=== PATIENT | female | born 1945 | race Caucasian/White ===

== ENCOUNTER 2020-11-03 13:52 | Outpatient (REF) | payer MEDICARE, SELFPAY ==
[2020-11-03 16:45] LABS: MANUAL DIFF FLAG NO
[2020-11-03 16:48] LABS: Basophils Percent Auto 0.3 % (0-2); Eosinophils Absolute Auto 0.4 X10*3/uL (0.0-0.4); Eosinophils Percent Auto 2.4 % (0-4); Imm Gran Abs Auto 0.18 X10*3/uL (0.00-0.03); Imm Gran Pct Auto 1.2 % (0.0-0.4); Lymphocytes Absolute Auto 2.9 X10*3/uL (1.2-4.9); Lymphocytes Percent Auto 20.4 % (20-40); Mean Corpuscular HGB Conc 28.4 g/dl (31.0-35.0); Mean Corpuscular Volume 91.8 fL (80-98); Mean Platelet Volume 10.2 fL (9.4-12.3); Monocytes Absolute Auto 1.3 X10*3/uL (0.1-1.2); Monocytes Percent Auto 8.7 % (2-11); Neutrophils Absolute Auto 9.7 X10*3/uL (2.0-8.3); Platelet Count 656 X10*3/uL (160-400); Red Blood Count 2.19 X10*6/uL (4.20-5.50); Red Cell Distribution Width 16.6 % (11.0-16.0); White Blood Count 14.4 X10*3/uL (4.8-10.8)
[2020-11-03 16:57] LABS: Hemoglobin 5.7 g/dl (12.0-16.0)
[2020-11-03 16:58] LABS: Hematocrit 20.1 % (37-47)
[2020-11-03 17:08] LABS: Alanine Aminotransferase 8 U/L (0-31); Albumin Level 3.1 g/dL (3.5-5.0); Alkaline Phosphatase 117 U/L (39-117); Anion Gap 13 (12-20); Aspartate Amino Transferase 12 U/L (5-31); Bilirubin Total 0.5 mg/dL (0.0-1.0); Blood Urea Nitrogen 11 mg/dL (9-16); Calcium 8.1 mg/dL (8.4-10.2); Carbon Dioxide 32 mmol/L (22-29); Chloride 99 mmol/L (96-108); Estimated Glomerular Filt Rate > 60; Glucose Random 112 mg/dL (60-115); Potassium 4.4 mmol/L (3.3-5.1); Sodium 140 mmol/L (135-145); Total Protein 6.3 g/dL (6.5-8.0)
[2020-11-03 17:12] LABS: B Type Natriuretic Peptide 46 pg/mL (<100)
[2020-11-03 17:30] LABS: Free T4 (Free Thyroxine) 0.99 ng/dL (0.71-1.85); Thyroid Stimulating Hormone 4.55 uIU/mL (0.32-4.0)
[2020-11-06 16:28] LABS: Vitamin B12 489 pg/mL (200-900)
== END 2020-11-03 13:53 | disposition home or self-care (01) ==
LOC: HO.HMGCLDS 13:52
PROVIDERS: PCP Internal Medicine; Visit Provider Internal Medicine
DX: R09.02 Hypoxemia (principal); I26.99 Other pulmonary embolism without acute cor pulmonale; R91.1 Solitary pulmonary nodule
CPT/HCPCS: 36415; 80053; 82607; 82746; 83880; 84439; 84443; 85025

== ENCOUNTER 2020-11-03 18:37 | Inpatient (IN) | payer MEDICARE, SELFPAY ==
[2020-11-03 18:43] VITALS: BP 162/67; PULSE 104; RESP 20; TEMP 37.9; O2SAT 98; BMI 33.3
[2020-11-03 20:00] VITALS: BP 133/57; PULSE 106; RESP 18; TEMP 37.4; O2SAT 98
--- NOTE | 2020-11-03 20:20 | ED_ITS ---
HPI - Weakness General Chief complaint: Weakness Stated complaint: weakness Time Seen by Provider: 11/03/20 20:19 Source: patient Mode of arrival: ambulatory Limitations: no limitations History of Present Illness HPI Narrative: Patient's history of COVID in late September discharged on 10/07 from [facility] had PE at that time is on Xarelto. After discharge patient has been feeling increasingly shortness of breath tiredness and weakness especially for last 1 week. No black stools no bleeding from any place had blood workup done today which showed hemoglobin of 5.7 PCP sent her here for blood transfusion and further workup. patient never had colonoscopy in the past denies any abdominal pain no chest pain Related Data Home Medications Medication Instructions Recorded Confirmed cholecalciferol (vitamin D3) 50 50 mcg PO DAILY 08/10/20 10/16/20 mcg (2,000 unit) capsule rivaroxaban 20 mg tablet 20 mg PO DAILY 10/16/20 10/16/20 Previous Rx's Medication Instructions Recorded amlodipine 5 mg tablet 5 mg PO DAILY #30 tab 09/25/20 oxygen #1 ea 10/16/20 furosemide 20 mg tablet 20 mg PO DAILY #30 tab 10/24/20 Allergies Allergy/AdvReac Type Severity Reaction Status Date / Time codeine [CODEINE] Allergy Intermediate TONGUE Verified 11/03/20 18:43 SWELLING Codeine Phosphate Allergy Unknown tongue Verified 11/03/20 18:43 swelling Review of Systems Constitutional: Constitutional: Reports fatigue, Reports malaise and Reports weakness Eyes: Eyes: Reports no additional eye complaints ENT: Reports system reviewed and no additional complaints, except as documented Cardiovascular: Cardiovascular: Reports no additional cardiovascular complaints and Reports dyspnea Respiratory: Respiratory: Reports dyspnea Gastrointestinal: Gastrointestinal: Denies melena, Denies hematochezia, Denies nausea and Denies vomiting Genitourinary: Genitourinary: Reports no additional female genitourinary complaints Musculoskeletal: Musculoskeletal: Reports no additional musculoskeletal complaints Neurologic: Reports system reviewed and no additional complaints, except as documented and Reports weakness Psychiatric: Psychiatric: Reports no additional psychiatric complaints Endocrine: Endocrine: Reports fatigue [facility] Past Medical History Medical History (Updated 11/03/20 @ 21:51 by Rocky Archibald MD) Cataract Hypercholesterolemia Hypertension Obesity (BMI 30-39.9) Peripheral vascular disease Trigger finger of right hand Surgical History (Updated 08/09/20 @ 10:28 by COTY Andres) History of cataract surgery Family History Family History (Updated 08/09/20 @ 10:29 by COTY Andres) Father Prostate cancer Diabetes Mother Pneumonia Social History Social History Advance Directives: No Advance Directives Information Provided: Yes Physical Exam Vital Signs: Vital Signs: Last Vital Signs Temp 98.8 F 11/03/20 23:18 Pulse 92 11/03/20 23:18 Resp 18 11/03/20 23:18 BP 133/47 L 11/03/20 23:18 Pulse Ox 97 11/03/20 22:49 Body Mass Index 33.3 Const: General: cooperative, well developed and ill appearing Nutritional Appearance: average body habitus Orientation/consciousness: patient oriented x3 HENMT: Head: Yes normocephalic and Yes atraumatic Ears: hearing grossly normal bilaterally Mouth: Normal oral and palatal mucosa present Throat: Yes posterior oropharynx normal Eyes: Conjunctivae: conjunctival abnormal (Pallor++) Sclerae: sclerae normal Pupils: Equal, round and reactive pupils present Neck: Neck: Yes normal visual inspection and Yes no JVD Thyroid: Thyroid normal Chest: Chest palpation & inspection: normal inspection of the chest and normal palpation of entire chest wall Resp: Effort & Inspection: respiratory distress (Mild on oxygen) and uses accessory muscles Auscultation: clear to auscultation bilaterally, no crackles, no rales and no rhonchi Percussion: percussion normal Cardio: Jugular venous distension: no JVD Rate: regular rate Rhythm: regular rhythm Heart sounds: S1 normal heart sound present and S2 normal heart sound present GI: Inspection: Yes normal to inspection Palpation (GI): Soft to palpation and nontender Auscultation: normal bowel sounds Rectal Exam - Female: visual inspection normal, normal sphincter tone and heme positive stool (Brown stool) Rectal exam heme positive - female: 1+ : General: Yes no CVA tenderness Back/Spine/Pelvis: Back: no CVA tenderness Thoracic/Lumbar Spine: thoracic and lumbar spine normal to inspection Skin: General skin exam: no rashes or lesions noted Neuro: General: patient oriented x3, gait normal and CN's II-XI intact bilaterally Cranial nerves: Yes Equal, round and reactive pupils present Extrem: General: Yes normal to inspection, Yes no calf tenderness and Yes pedal edema (4+ bilateral) MDM - Weakness MDM Narrative Medical decision making narrative: Patient with significant anemia on Xarelto for PE guaiac positive for occult blood but no more alem blood or melena. Patient never had colonoscopy in the past denies any significant abdominal pain. Will give her 2 units of blood transfusion plan to admit GI to follow will give IV Protonix Medical Records Attestation: I reviewed the patient's medical records. Lab Data Attestation: I reviewed the patient's lab results. Result diagrams: 11/03/20 20:48 11/03/20 20:48 Labs: Lab Results 11/03/20 11/03/20 11/03/20 Range/Units 20:32 20:48 20:48 WBC 14.5 H (4.8-10.8) X10*3/uL RBC 2.20 L (4.20-5.50) X10*6/uL Hgb 5.9 L* (12.0-16.0) g/dl Hct 19.8 L* (37-47) % MCV 90.0 (80-98) fL MCH 26.8 L (27.0-33.0) pg MCHC 29.8 L (31.0-35.0) g/dl RDW 16.6 H (11.0-16.0) % Plt Count 636 H (160-400) X10*3/uL MPV 9.9 (9.4-12.3) fL Absolute Nucleated RBC 0.120 H (0.0-0.012) X10*3/uL Nucleated RBC % (auto) 0.8 H (0.0-0.2) /100WBC Neutrophils % (Manual) 76 H (45-73) % Band Neutrophils % 2 L (3-5) % Lymphocytes % (Manual) 13 L (20-40) % Atypical Lymphs % (Man) 2 (0-6) % Monocytes % (Manual) 4 (2-11) % Eosinophils % (Manual) 3 (0-4) % Abs Neuts (Manual) 11.3 H (2.2-7.9) X10*3/uL Lymphocytes # (Manual) 1.9 (0.6-4.8) X10*3/uL Atyp Lymphs # (Manual) 0.3 x10*3/uL Monocytes # (Manual) 0.6 (0.0-1.2) X10*3/uL Eosinophils # (Manual) 0.4 (0.0-0.8) X10*3/UL Nucleated RBCs 1 H (0-0) /100WBC Platelet Estimate SLIGHTLY INCREASED (NORMAL) Plt Morphology Comment NORMAL RBC Morphology NOTED Polychromasia 1+ Hypochromasia 2+ Tear Drop Cells 1+ Hold Purple Top SEE NOTE PT (10.8-13.0) SEC INR (0.9-1.1) APTT (24.1-38.0) SEC Sodium (135-145) mmol/L Potassium (3.3-5.1) mmol/L Chloride (96-108) mmol/L Carbon Dioxide (22-29) mmol/L Anion Gap (12-20) BUN (9-16) mg/dL Creatinine (0.5-1.4) mg/dL Estim Creat Clear Calc Estimated GFR Random Glucose (60-115) mg/dL Calcium (8.4-10.2) mg/dL Total Bilirubin (0.0-1.0) mg/dL Direct Bilirubin (0.0-0.5) mg/dL AST (5-31) U/L ALT (0-31) U/L Alkaline Phosphatase (39-117) U/L B-Natriuretic Peptide (<100) pg/mL Total Protein (6.5-8.0) g/dL Albumin (3.5-5.0) g/dL Stool Occult Blood POS (NEG) COVID-19 ([place]) (Negative) COVID-19 Clin Com Blood Type Antibody Screen Crossmatch 11/03/20 11/03/20 11/03/20 Range/Units 20:48 20:48 20:48 WBC (4.8-10.8) X10*3/uL RBC (4.20-5.50) X10*6/uL Hgb (12.0-16.0) g/dl Hct (37-47) % MCV (80-98) fL MCH (27.0-33.0) pg MCHC (31.0-35.0) g/dl RDW (11.0-16.0) % Plt Count (160-400) X10*3/uL MPV (9.4-12.3) fL Absolute Nucleated RBC (0.0-0.012) X10*3/uL Nucleated RBC % (auto) (0.0-0.2) /100WBC Neutrophils % (Manual) (45-73) % Band Neutrophils % (3-5) % Lymphocytes % (Manual) (20-40) % Atypical Lymphs % (Man) (0-6) % Monocytes % (Manual) (2-11) % Eosinophils % (Manual) (0-4) % Abs Neuts (Manual) (2.2-7.9) X10*3/uL Lymphocytes # (Manual) (0.6-4.8) X10*3/uL Atyp Lymphs # (Manual) x10*3/uL Monocytes # (Manual) (0.0-1.2) X10*3/uL Eosinophils # (Manual) (0.0-0.8) X10*3/UL Nucleated RBCs (0-0) /100WBC Platelet Estimate (NORMAL) Plt Morphology Comment RBC Morphology Polychromasia Hypochromasia Tear Drop Cells Hold Purple Top PT 27.0 H (10.8-13.0) SEC INR 2.3 H (0.9-1.1) APTT 43.9 H (24.1-38.0) SEC Sodium 141 (135-145) mmol/L Potassium 4.3 (3.3-5.1) mmol/L Chloride 99 (96-108) mmol/L Carbon Dioxide 31 H (22-29) mmol/L Anion Gap 15 (12-20) BUN 15 (9-16) mg/dL Creatinine 0.96 (0.5-1.4) mg/dL Estim Creat Clear Calc 57.2 Estimated GFR 57 Random Glucose 128 H (60-115) mg/dL Calcium 8.4 (8.4-10.2) mg/dL Total Bilirubin 0.5 (0.0-1.0) mg/dL Direct Bilirubin 0.2 (0.0-0.5) mg/dL AST 12 (5-31) U/L ALT 8 (0-31) U/L Alkaline Phosphatase 118 H (39-117) U/L B-Natriuretic Peptide 38 (<100) pg/mL Total Protein 6.4 L (6.5-8.0) g/dL Albumin 3.2 L (3.5-5.0) g/dL Stool Occult Blood (NEG) COVID-19 ([place]) (Negative) COVID-19 Clin Com Blood Type Antibody Screen Crossmatch 11/03/20 11/03/20 Range/Units 20:49 22:18 WBC (4.8-10.8) X10*3/uL RBC (4.20-5.50) X10*6/uL Hgb (12.0-16.0) g/dl Hct (37-47) % MCV (80-98) fL MCH (27.0-33.0) pg MCHC (31.0-35.0) g/dl RDW (11.0-16.0) % Plt Count (160-400) X10*3/uL MPV (9.4-12.3) fL Absolute Nucleated RBC (0.0-0.012) X10*3/uL Nucleated RBC % (auto) (0.0-0.2) /100WBC Neutrophils % (Manual) (45-73) % Band Neutrophils % (3-5) % Lymphocytes % (Manual) (20-40) % Atypical Lymphs % (Man) (0-6) % Monocytes % (Manual) (2-11) % Eosinophils % (Manual) (0-4) % Abs Neuts (Manual) (2.2-7.9) X10*3/uL Lymphocytes # (Manual) (0.6-4.8) X10*3/uL Atyp Lymphs # (Manual) x10*3/uL Monocytes # (Manual) (0.0-1.2) X10*3/uL Eosinophils # (Manual) (0.0-0.8) X10*3/UL Nucleated RBCs (0-0) /100WBC Platelet Estimate (NORMAL) Plt Morphology Comment RBC Morphology Polychromasia Hypochromasia Tear Drop Cells Hold Purple Top PT (10.8-13.0) SEC INR (0.9-1.1) APTT (24.1-38.0) SEC Sodium (135-145) mmol/L Potassium (3.3-5.1) mmol/L Chloride (96-108) mmol/L Carbon Dioxide (22-29) mmol/L Anion Gap (12-20) BUN (9-16) mg/dL Creatinine (0.5-1.4) mg/dL Estim Creat Clear Calc Estimated GFR Random Glucose (60-115) mg/dL Calcium (8.4-10.2) mg/dL Total Bilirubin (0.0-1.0) mg/dL Direct Bilirubin (0.0-0.5) mg/dL AST (5-31) U/L ALT (0-31) U/L Alkaline Phosphatase (39-117) U/L B-Natriuretic Peptide (<100) pg/mL Total Protein (6.5-8.0) g/dL Albumin (3.5-5.0) g/dL Stool Occult Blood (NEG) COVID-19 ([place]) Negative (Negative) COVID-19 Clin Com See Note Blood Type A Positive Antibody Screen NEGATIVE Crossmatch See Detail Discharge Plan Discharge Clinical Impression: Severe anemia GI bleed Qualifiers: GI bleed type/associated pathology: unspecified gastrointestinal hemorrhage type Qualified Code(s): K92.2 - Gastrointestinal hemorrhage, unspecified Patient Disposition: Admitted As Inpatient
--- NOTE | 2020-11-03 20:31 | XR_ITS ---
EXAMINATION: XR CHEST CLINICAL INFORMATION: Shortness of breath, Covid COMPARISON: 12/19/2019 TECHNIQUE: Frontal view of the chest was obtained. FINDINGS: The heart and pulmonary vessels appear normal. Patchy ill-defined groundglass opacities are noted in the right midlung and right lower lobe as well as in the left lower lobe. These findings are new when compared to the prior study. No pleural effusions. XR/XR chest 1V IMPRESSION: New patchy ill-defined airspace disease which is consistent with Covid 19 pulmonary infection
[2020-11-03 20:40] LABS: OBS Int Ctl Valid YES; OBS1 POS (NEG)
[2020-11-03 21:24] LABS: Mean Corpuscular HGB Conc 29.8 g/dl (31.0-35.0); Mean Corpuscular Hemoglobin 26.8 pg (27.0-33.0); Mean Platelet Volume 9.9 fL (9.4-12.3); NRBC Pct Auto 0.8 /100WBC (0.0-0.2); Platelet Count 636 X10*3/uL (160-400); Red Cell Distribution Width 16.6 % (11.0-16.0); White Blood Count 14.5 X10*3/uL (4.8-10.8)
[2020-11-03 21:25] LABS: Baso%MD 0.3 %; IG%MD 1.3 %; Lymph%MD 18.9 %; Mono%MD 6.7 %; Neut%MD 70.8 %
[2020-11-03 21:27] LABS: Hematocrit 19.8 % (37-47); Hemoglobin 5.9 g/dl (12.0-16.0)
[2020-11-03 21:37] LABS: INTERNATIONAL NORM RATIO 2.3 (0.9-1.1)
[2020-11-03 21:39] LABS: Partial Thromboplastin Time 43.9 SEC (24.1-38.0)
[2020-11-03 21:46] LABS: Alanine Aminotransferase 8 U/L (0-31); Albumin Level 3.2 g/dL (3.5-5.0); Alkaline Phosphatase 118 U/L (39-117); Anion Gap 15 (12-20); Aspartate Amino Transferase 12 U/L (5-31); Bilirubin Direct 0.2 mg/dL (0.0-0.5); Bilirubin Total 0.5 mg/dL (0.0-1.0); Blood Urea Nitrogen 15 mg/dL (9-16); Calcium 8.4 mg/dL (8.4-10.2); Carbon Dioxide 31 mmol/L (22-29); Chloride 99 mmol/L (96-108); Creatinine Clr Calc Pharmacy 57.2; Estimated Glomerular Filt Rate 57; Glucose Random 128 mg/dL (60-115); Potassium 4.3 mmol/L (3.3-5.1); Sodium 141 mmol/L (135-145); Total Protein 6.4 g/dL (6.5-8.0)
[2020-11-03] MEDS: Pantoprazole Sodium 40 MG/10 ML VIAL IVPUSH (21:55)
[2020-11-03 21:58] LABS: Atypical Lymph Absolute Manual 0.3 x10*3/uL; Atypical Lymphs Percent Manual 2 % (0-6); Band Neutrophils Percent 2 % (3-5); Eosinophils Absolute Manual 0.4 X10*3/UL (0.0-0.8); Eosinophils Percent Manual 3 % (0-4); Lymphocytes Absolute Manual 1.9 X10*3/uL (0.6-4.8); Lymphocytes Percent Manual 13 % (20-40); Monocytes Absolute Manual 0.6 X10*3/uL (0.0-1.2); Monocytes Percent Manual 4 % (2-11); Neutrophils Absolute Manual 11.3 X10*3/uL (2.2-7.9); Neutrophils Percent Manual 76 % (45-73); Nucleated Red Blood Cells 1 /100WBC (0-0); RBC Morphology NOTED
[2020-11-03 22:00] LABS: Hypochromasia 2+; Polychromasia 1+; Tear Drop Cells 1+
[2020-11-03 22:03] LABS: Platelet Estimate SLIGHTLY INCREASED (NORMAL); Platelet Morphology Comment NORMAL
[2020-11-03 22:08] LABS: B Type Natriuretic Peptide 38 pg/mL (<100)
[2020-11-03 22:49] VITALS: BP 124/46; PULSE 102; RESP 20; TEMP 37.1; O2SAT 97
[2020-11-03 22:51] LABS: COVID-19 Test Negative (Negative); IDNOW Serial# 9DD0AD1C
[2020-11-03 23:03] VITALS: BP 124/46; PULSE 94; RESP 25; TEMP 36.8
[2020-11-03 23:18] VITALS: BP 133/47; PULSE 92; RESP 18; TEMP 37.1
--- NOTE | 2020-11-03 23:34 | PM.IMHP ---
History of Present Illness Date of Service: 11/03/20 Chief Complaint: SOB 75 y/o female with an extensive PMHX who presented from home due to abnormal labs. Per history provided by the patient, 1 month ago was diagnosed with covid infection at [facility] and acute PE which has been treated with xarelto. Per patient, since was discharged from that facility has been having progressive symptoms of SOB which is worse with ambulation. Today was evaluated by PCP and after Bloodwork was done was found to have anemia for what was sent to the ED for further evaluation. Patient denies any chest pain, nausea, vomiting, blood in the stool or blood in the urine. Never had a colonoscopy done in the past. On presentation patient was found to have BP of 162/67 which improved to 133/50 mmHg, HR of 104, RR of 25, WBC of 14.5, Hgb of 5.9, platelet of 636, INR of 2.3, CXR showing bilateral airspace opacities concerning for possible covid infection vs resolving past infection. Covid test negative in the ED. Occult blood positive. 2 units of PRBC ordered per ED attending and decision for admission given. Patient seen and examined at the bedside, laying down in bed in no acute distress. ROS as above otherwise negative. Physical exam unremarkable. PMHx: Cataract Hypercholesterolemia Hypertension Obesity (BMI 30-39.9) Peripheral vascular disease Trigger finger of right hand PSx: History of cataract surgery Toxic habits: No hx of alcohol abuse, smoking or IVDA Review of Systems Constitutional: Constitutional: Reports as per HPI Cardiovascular: Cardiovascular: Reports dyspnea Respiratory: Respiratory: Reports dyspnea [facility] Medical History Cataract Hypercholesterolemia Hypertension Obesity (BMI 30-39.9) Peripheral vascular disease Trigger finger of right hand Functional capacity: independent ambulation Family History Father Prostate cancer Diabetes Mother Pneumonia Surgical History History of cataract surgery Social History Advance Directives: No Advance Directives Information Provided: Yes Meds Allergies Allergy/AdvReac Type Severity Reaction Status Date / Time codeine [CODEINE] Allergy Intermediate TONGUE Verified 11/03/20 18:43 SWELLING Codeine Phosphate Allergy Unknown tongue Verified 11/03/20 18:43 swelling Home Medications Medication Instructions Recorded Confirmed Type cholecalciferol (vitamin D3) 50 50 mcg PO DAILY 08/10/20 10/16/20 History mcg (2,000 unit) capsule rivaroxaban 20 mg tablet 20 mg PO DAILY 10/16/20 10/16/20 History Physical Exam Vital Signs and Narrative: Vital Signs: Last Vital Signs Temp 98.8 F 11/03/20 23:18 Pulse 92 11/03/20 23:18 Resp 18 11/03/20 23:18 BP 133/47 L 11/03/20 23:18 Pulse Ox 97 11/03/20 22:49 Body Mass Index 33.3 Const: General: cooperative, comfortable and no acute distress Orientation/consciousness: oriented to person, oriented to place and oriented to time HENMT: Head: Yes normal to inspection Eyes: General: appearance normal, both eyes and all related structures Neck: Yes normal visual inspection Chest: Chest palpation & inspection: normal inspection of the chest Resp: Effort & Inspection: normal respiratory effort Auscultation: clear to auscultation bilaterally Cardio: Jugular venous distension: no JVD Rate: regular rate Rhythm: regular rhythm Heart sounds: S1 normal heart sound present and S2 normal heart sound present GI: Inspection: Yes normal to inspection Skin: General skin exam: no rashes or lesions noted Neuro: General: oriented to person, oriented to place and oriented to time Cognition (Neuro): normal cognition Extrem: General: Yes normal to inspection Results Labs CBC and Chem 7: 11/03/20 20:48 11/03/20 20:48 Labs: Laboratory Results - last 24 hr 11/03/20 11/03/20 11/03/20 20:32 20:48 20:48 MCV 90.0 MCH 26.8 L MCHC 29.8 L RDW 16.6 H Plt Count 636 H MPV 9.9 Absolute Nucleated RBC 0.120 H Nucleated RBC % (auto) 0.8 H Neutrophils % (Manual) 76 H Band Neutrophils % 2 L Lymphocytes % (Manual) 13 L Atypical Lymphs % (Man) 2 Monocytes % (Manual) 4 Eosinophils % (Manual) 3 Abs Neuts (Manual) 11.3 H Lymphocytes # (Manual) 1.9 Atyp Lymphs # (Manual) 0.3 Monocytes # (Manual) 0.6 Eosinophils # (Manual) 0.4 Nucleated RBCs 1 H Platelet Estimate SLIGHTLY INCREASED Plt Morphology Comment NORMAL RBC Morphology NOTED Polychromasia 1+ Hypochromasia 2+ Tear Drop Cells 1+ Hold Purple Top SEE NOTE PT INR APTT Anion Gap Estim Creat Clear Calc Estimated GFR Random Glucose Calcium Total Bilirubin Direct Bilirubin AST ALT Alkaline Phosphatase B-Natriuretic Peptide Total Protein Albumin Stool Occult Blood POS COVID-19 ([place]) COVID-19 Click Contact Com Blood Type Antibody Screen Crossmatch 11/03/20 11/03/20 11/03/20 20:48 20:48 20:48 MCV MCH MCHC RDW Plt Count MPV Absolute Nucleated RBC Nucleated RBC % (auto) Neutrophils % (Manual) Band Neutrophils % Lymphocytes % (Manual) Atypical Lymphs % (Man) Monocytes % (Manual) Eosinophils % (Manual) Abs Neuts (Manual) Lymphocytes # (Manual) Atyp Lymphs # (Manual) Monocytes # (Manual) Eosinophils # (Manual) Nucleated RBCs Platelet Estimate Plt Morphology Comment RBC Morphology Polychromasia Hypochromasia Tear Drop Cells Hold Purple Top PT 27.0 H INR 2.3 H APTT 43.9 H Anion Gap 15 Estim Creat Clear Calc 57.2 Estimated GFR 57 Random Glucose 128 H Calcium 8.4 Total Bilirubin 0.5 Direct Bilirubin 0.2 AST 12 ALT 8 Alkaline Phosphatase 118 H B-Natriuretic Peptide 38 Total Protein 6.4 L Albumin 3.2 L Stool Occult Blood COVID-19 ([place]) COVID-19 Click Contact Com Blood Type Antibody Screen Crossmatch 11/03/20 11/03/20 20:49 22:18 MCV MCH MCHC RDW Plt Count MPV Absolute Nucleated RBC Nucleated RBC % (auto) Neutrophils % (Manual) Band Neutrophils % Lymphocytes % (Manual) Atypical Lymphs % (Man) Monocytes % (Manual) Eosinophils % (Manual) Abs Neuts (Manual) Lymphocytes # (Manual) Atyp Lymphs # (Manual) Monocytes # (Manual) Eosinophils # (Manual) Nucleated RBCs Platelet Estimate Plt Morphology Comment RBC Morphology Polychromasia Hypochromasia Tear Drop Cells Hold Purple Top PT INR APTT Anion Gap Estim Creat Clear Calc Estimated GFR Random Glucose Calcium Total Bilirubin Direct Bilirubin AST ALT Alkaline Phosphatase B-Natriuretic Peptide Total Protein Albumin Stool Occult Blood COVID-19 ([place]) Negative COVID-19 [employer] See Note Blood Type A Positive Antibody Screen NEGATIVE Crossmatch See Detail Imaging Radiologist's Impressions: Impressions Chest X-Ray 11/03/20 20:31 IMPRESSION: New patchy ill-defined airspace disease which is consistent with Covid 19 pulmonary infection Assessment and Plan (1) Severe anemia: Status: Acute Hgb of 5.9, s/p 2 units of PRBC Follow up Repeat CBC once blood transfusion is completed Follow up anemia work up including ferritin, iron profile and reticulocyte count Hold xarelto given acute symptomatic anemia Follow up with pulmonology in the morning regarding any alternatives given recent hx of PE Follow up GI consult in the am for possible EGD/Colonoscopy NPO for now (2) GI bleed: Qualifiers: GI bleed type/associated pathology: unspecified gastrointestinal hemorrhage type Qualified Code(s): K92.2 - Gastrointestinal hemorrhage, unspecified Status: Acute as above (3) Pulmonary embolism: Qualifiers: Pulmonary embolism type: other Chronicity: acute Acute cor pulmonale presence: without acute cor pulmonale Qualified Code(s): I26.99 - Other pulmonary embolism without acute cor pulmonale Problem details: 10/04/2020 Status: Acute Hold xarelto Follow up Pulmonology consult (4) Pneumonia due to COVID-19 virus: Problem details: September 16, 2020 Status: Acute prior infection. Negative for covid on present admission (5) Sepsis: Status: Acute Keep MAP >65 mmHg Follow up Lactate level Start with Rocephin and doxy for gram neg and atypical pneumonia coverage Follow up Bcx Infectious disease consult in the am (6) Pneumonia: Status: Acute Plan as above
[2020-11-04] VITALS (9 sets, daily range): BP systolic 122–147; BP diastolic 50–69; PULSE 89–98; RESP 18–22; TEMP 35.6–37.1; O2SAT 96–100
[2020-11-04 01:09] LABS: Lactic Acid 0.8 mmol/L (0.5-2.0)
[2020-11-04] MEDS: cefTRIAXone sodium 1 GM in 0.9 % Sodium Chloride 50 ML IV ×2 (02:18→22:30)
[2020-11-04] MEDS: 0.9 % Sodium Chloride Flush 3 ML SYRINGE IVFLUSH ×3 (02:19→19:15)
[2020-11-04 03:40] LABS: Basophils Percent Auto 0.2 % (0-2); Eosinophils Absolute Auto 0.3 X10*3/uL (0.0-0.4); Eosinophils Percent Auto 2.3 % (0-4); Hematocrit 25.3 % (37-47); Hemoglobin 7.9 g/dl (12.0-16.0); Imm Gran Abs Auto 0.17 X10*3/uL (0.00-0.03); Imm Gran Pct Auto 1.4 % (0.0-0.4); Lymphocytes Absolute Auto 2.5 X10*3/uL (1.2-4.9); Lymphocytes Percent Auto 20.2 % (20-40); MANUAL DIFF FLAG NO; Mean Corpuscular HGB Conc 31.2 g/dl (31.0-35.0); Mean Corpuscular Volume 89.7 fL (80-98); Mean Platelet Volume 9.2 fL (9.4-12.3); Monocytes Absolute Auto 1.1 X10*3/uL (0.1-1.2); Monocytes Percent Auto 8.5 % (2-11); Neutrophils Absolute Auto 8.3 X10*3/uL (2.0-8.3); Neutrophils Percent Auto 67.4 % (45-73); Platelet Count 501 X10*3/uL (160-400); Red Blood Count 2.82 X10*6/uL (4.20-5.50); Red Cell Distribution Width 16.2 % (11.0-16.0); White Blood Count 12.4 X10*3/uL (4.8-10.8)
[2020-11-04 04:01] LABS: NRBC Pct Auto 1.2 /100WBC (0.0-0.2)
[2020-11-04 07:23] LABS: Hemoglobin 8.1 g/dl (12.0-16.0); MANUAL DIFF FLAG SCAN; Mean Corpuscular HGB Conc 31.2 g/dl (31.0-35.0); SCAN SMEAR FLAG 1
[2020-11-04 07:26] LABS: Basophils Percent Auto 0.3 % (0-2); Eosinophils Absolute Auto 0.3 X10*3/uL (0.0-0.4); Imm Gran Abs Auto 0.18 X10*3/uL (0.00-0.03); Imm Gran Pct Auto 1.4 % (0.0-0.4); Immature Retic Fraction 39.7 % (3.0-15.9); Lymphocytes Absolute Auto 2.3 X10*3/uL (1.2-4.9); Lymphocytes Percent Auto 17.7 % (20-40); Mean Corpuscular Hemoglobin 27.7 pg (27.0-33.0); Mean Platelet Volume 9.6 fL (9.4-12.3); Monocytes Percent Auto 7.4 % (2-11); NRBC Pct Auto 1.3 /100WBC (0.0-0.2); Neutrophils Absolute Auto 9.1 X10*3/uL (2.0-8.3); Neutrophils Percent Auto 71.2 % (45-73); Platelet Count 562 X10*3/uL (160-400); Red Blood Count 2.92 X10*6/uL (4.20-5.50); Retic HGB Equivalent 21.1 pg (30.0-35.0); Reticulocyte Percent 4.5 % (0.5-1.8); Reticulocytes Absolute 0.131 X10*6/uL (0.026-0.095); White Blood Count 12.8 X10*3/uL (4.8-10.8)
[2020-11-04 07:52] LABS: Anion Gap 12 (12-20); Blood Urea Nitrogen 13 mg/dL (9-16); Calcium 7.8 mg/dL (8.4-10.2); Carbon Dioxide 32 mmol/L (22-29); Chloride 100 mmol/L (96-108); Creatinine Clr Calc Pharmacy 68.6; Estimated Glomerular Filt Rate > 60; Glucose Random 114 mg/dL (60-115); Iron 264 mcg/dL (30-160); Percent Iron Saturation 94 % (15-50); Potassium 4.2 mmol/L (3.3-5.1); Sodium 140 mmol/L (135-145); Total Iron Binding Capacity 282 mcg/dL (228-428); Unsaturated Iron Binding 18 ug/dL
[2020-11-04 08:00] LABS: Ferritin 37 ng/mL (10-250)
[2020-11-04 08:40] LABS: SLIDE REVIEW VERIFIED
[2020-11-04] MEDS: Pantoprazole Sodium 40 MG/10 ML VIAL IVPUSH ×2 (12:50→19:15)
--- NOTE | 2020-11-04 12:54 | PC.NURSE ---
Pt given clear liquids which was okay per . notifed that her med-rec was completed. Awaiting orders for her home medication at this time. VSS. PT offers no complaints. She appears comfortable OOB to recliner
--- NOTE | 2020-11-04 16:20 | PC.NURSE ---
Called to IM for report. Per bilingual secretary RN will return call.
--- NOTE | 2020-11-04 16:41 | P.PNIM_ITS ---
Subjective Subjective Date of Service: 11/04/20 Interval History: Patient seen and examined at bedside, patient was reporting weakness Constitutional Constitutional: Reports as per HPI, Reports fatigue, Reports malaise and Reports weakness Eyes Eyes: Reports no additional eye complaints ENT Ears, Nose, Mouth, and Throat: Reports system reviewed and no additional complaints, except as documented Cardiovascular Cardiovascular: Reports no additional cardiovascular complaints and Reports dyspnea Respiratory Respiratory: Reports dyspnea Gastrointestinal Gastrointestinal: Denies melena, Denies hematochezia, Denies nausea and Denies vomiting Musculoskeletal Musculoskeletal: Reports no additional musculoskeletal complaints Neurologic Neurologic: Reports system reviewed and no additional complaints, except as documented and Reports weakness Psychiatric Psychiatric: Reports no additional psychiatric complaints Endocrine Endocrine: Reports fatigue Physical Exam Vital Signs: Vital Signs: Last Vital Signs Temp 97.6 F 11/04/20 12:53 Pulse 93 11/04/20 12:53 Resp 20 11/04/20 12:53 BP 142/60 H 11/04/20 12:53 Pulse Ox 100 11/04/20 12:53 Body Mass Index 33.3 Const: General: cooperative, comfortable and no acute distress Orientation/consciousness: oriented to person, oriented to place and oriented to time HENMT: Head: Yes normal to inspection Eyes: General: appearance normal, both eyes and all related structures Neck: Neck: Yes normal visual inspection Chest: Chest palpation & inspection: normal inspection of the chest Resp: Effort & Inspection: normal respiratory effort Auscultation: clear to auscultation bilaterally Cardio: Jugular venous distension: no JVD Rate: regular rate Rhythm: regular rhythm Heart sounds: S1 normal heart sound present and S2 normal heart sound present GI: Inspection: Yes normal to inspection Skin: General skin exam: no rashes or lesions noted Neuro: General: oriented to person, oriented to place and oriented to time Cognition (Neuro): normal cognition Extrem: General: Yes normal to inspection Objective Data Current Medications Generic Name Dose Route Start Last Admin Trade Name Freq PRN Reason Stop Dose Admin Doxycycline Hyclate 100 mg 11/04/20 22:00 Doxycycline Hyclate 100 Mg Tablet PO Q24H [facility] Ceftriaxone Sodium 1 gm/ 50 mls @ 100 mls/hr 11/04/20 22:00 Sodium Chloride IV Q24H TAM Pantoprazole Sodium 40 mg 11/04/20 12:07 11/04/20 12:50 Pantoprazole Sodium 40 Mg/10 Ml Vial IVPUSH 40 mg BID@0630,1630 TAM Administration Sodium Chloride 3 ml 11/04/20 01:04 11/04/20 09:12 0.9 % Sodium Chloride Flush 3 Ml Syringe IVFLUSH 3 ml QSHIFT TAM Administration Labs CBC & Chem 7: 11/04/20 06:50 11/04/20 06:50 Assessment and Plan (1) Severe anemia: Status: Acute (2) GI bleed: Status: Acute (3) Pulmonary embolism: Problem details: 10/04/2020 Status: Acute (4) Pneumonia due to COVID-19 virus: Problem details: September 16, 2020 Status: Acute (5) Sepsis: Status: Acute (6) Pneumonia: Status: Acute Assessment and Plan: Acute blood loss anemia likely secondary to GI bleed Hgb of 5.9 on admission s/p 2 units of PRBC Hemoglobin improved to 8 continue IV PPI Hold Xarelto GI consulted recommended EGD on Friday if hemoglobin remained stable will start heparin drip tomorrow, okay per GI monitor CBC closely Pneumonia continue Rocephin and doxycycline continue supportive management Recent history of pulmonary embolism diagnosed in the beginning of October at [facility] hold Xarelto will start heparin drip tomorrow H&H remained stable hypertension continue amlodipine DVT prophylaxis Venodyne given GI bleed
[2020-11-04] MEDS: Cholecalciferol (Vitamin D3) 25 MCG TABLET 50 MCG PO (19:14)
[2020-11-05 03:41] VITALS: BP 127/58; PULSE 98; RESP 18; TEMP 37; O2SAT 95
[2020-11-05] MEDS: Pantoprazole Sodium 40 MG/10 ML VIAL IVPUSH ×2 (05:50→16:27)
[2020-11-05 07:17] VITALS: BP 139/62; PULSE 97; RESP 18; TEMP 36.6; O2SAT 92
--- NOTE | 2020-11-05 08:03 | PM.GICN ---
History of Present Illness Data of Consult Service Date: 11/05/20 Requesting physician: Glen Ferris Primary Care Provider: Marizol Palacios MD HPI Reason for consult: anemia 75 y/o female with hx of obesity, HLP, HTN and recent COVID infection complicated by PTE-(on xarelto) 1 month ago who I am asked to see for assessment for acute anemia. Patient had noted increasing exertional dyspnea and had labs checked by PCP. She denies any chest pain, nausea, vomiting, blood in the stool or blood in the urine, or epistaxis. Never had a colonoscopy done in the past. She did have heartburn for few days 1 month ago when she was dx with covid and PTE and when she was commenced on pred and xarelto. She also noted increased ankle edema for last several days, but no orthopnea or PND On presentation to the ED patient was found to have BP of 162/67 which improved to 133/50 mmHg, HR of 104, RR of 25, WBC of 14.5, Hgb of 5.9, platelet of 636, INR of 2.3. Patient CXR showing bilateral airspace opacities concerning for possible covid infection vs resolving past infection. Covid test negative in the ED. Review of Systems Constitutional: Constitutional: Reports as per HPI, Reports fatigue, Reports malaise and Reports weakness Eyes: Eyes: Reports no additional eye complaints ENT: Reports system reviewed and no additional complaints, except as documented Cardiovascular: Cardiovascular: Reports no additional cardiovascular complaints and Reports dyspnea Respiratory: Respiratory: Reports dyspnea Gastrointestinal: Gastrointestinal: Denies melena, Denies hematochezia, Denies nausea and Denies vomiting Musculoskeletal: Musculoskeletal: Reports no additional musculoskeletal complaints Neurologic: Reports system reviewed and no additional complaints, except as documented and Reports weakness Psychiatric: Psychiatric: Reports no additional psychiatric complaints Endocrine: Endocrine: Reports fatigue PMFSH Past Medical History Medical History Cataract Hypercholesterolemia Hypertension Obesity (BMI 30-39.9) Peripheral vascular disease Trigger finger of right hand Functional capacity: independent ambulation Family History Family History Father Prostate cancer Diabetes Mother Pneumonia Surgical History Surgical History History of cataract surgery Social History Social History Household Members: Children Housing: House Do you presently have visiting nurse or other home services: No Smoking Status: Former smoker Tobacco Type: Cigarette Smoked in Last 30 Days: No Patient Interested in Nicotine Replacement: No Patient Given Instructions on How to Stop Smoking: No Second Hand Smoke Exposure: No Use of substances other than those prescribed or required for medical reasons: No Currently Displaying Signs/Symptoms of Drug Intoxication Withdrawal: No Have you been hit, kicked, punched, or otherwise hurt by someone within the past year? If so, by whom?: No Do you feel safe in your current relationship?: No Current Relationship Is there a partner from a previous relationship who is making you feel unsafe now?: No Are you made to feel afraid or neglected: No Spiritual Healthcare Practices: NO Amish Healthcare Practices: NO Cultural Healthcare Practices: NO Advance Directives: No Advance Directives Information Provided: Yes Do you have thoughts of harming others: None Do you have a plan to hurt others: No Plan Recently lost weight without trying: Yes Meds Allergies Allergy/AdvReac Type Severity Reaction Status Date / Time codeine [CODEINE] Allergy Intermediate TONGUE Verified 11/03/20 18:43 SWELLING Codeine Phosphate Allergy Unknown tongue Verified 11/03/20 18:43 swelling Home Medications Medication Instructions Recorded Confirmed Type cholecalciferol (vitamin D3) 50 50 mcg PO DAILY 08/10/20 11/04/20 History mcg (2,000 unit) capsule rivaroxaban 20 mg tablet 20 mg PO DAILY 10/16/20 11/04/20 History Physical Exam Vital Signs: Vital Signs: Last Vital Signs Temp 97.9 F 11/05/20 07:17 Pulse 97 11/05/20 07:17 Resp 18 11/05/20 07:17 BP 139/62 11/05/20 07:17 Pulse Ox 92 11/05/20 07:17 Body Mass Index 33.3 Const: General: cooperative, comfortable, no acute distress, well developed and ill appearing Nutritional Appearance: average body habitus Orientation/consciousness: oriented to person, oriented to place, oriented to time and patient oriented x3 HENMT: Head: Yes normal to inspection, Yes normocephalic and Yes atraumatic Ears: hearing grossly normal bilaterally Mouth: Normal oral and palatal mucosa present Throat: Yes posterior oropharynx normal Eyes: General: appearance normal, both eyes and all related structures Conjunctivae: conjunctival abnormal (Pallor++) Sclerae: sclerae normal Pupils: Equal, round and reactive pupils present Neck: Neck: Yes normal visual inspection and Yes no JVD Thyroid: Thyroid normal Chest: Chest palpation & inspection: normal inspection of the chest and normal palpation of entire chest wall Resp: Effort & Inspection: normal respiratory effort, respiratory distress (Mild on oxygen) and uses accessory muscles Auscultation: clear to auscultation bilaterally, no crackles, no rales and no rhonchi Percussion: percussion normal Cardio: Jugular venous distension: no JVD Rate: regular rate Rhythm: regular rhythm Heart sounds: S1 normal heart sound present and S2 normal heart sound present GI: Inspection: Yes normal to inspection Palpation (GI): Soft to palpation and nontender Auscultation: normal bowel sounds Rectal Exam - Female: visual inspection normal, normal sphincter tone and heme positive stool (Brown stool) Rectal exam heme positive - female: 1+ : General: Yes no CVA tenderness Back/Spine/Pelvis: Back: no CVA tenderness Thoracic/Lumbar Spine: thoracic and lumbar spine normal to inspection Skin: General skin exam: no rashes or lesions noted Neuro: General: oriented to person, oriented to place, oriented to time, patient oriented x3, gait normal and CN's II-XI intact bilaterally Cranial nerves: Yes Equal, round and reactive pupils present Cognition (Neuro): normal cognition Extrem: General: Yes normal to inspection, Yes no calf tenderness and Yes pedal edema (4+ bilateral) Results Labs CBC & Chem 7: 11/04/20 06:50 11/04/20 06:50 Labs: Short CBC 11/04/20 Range/Units 06:50 WBC 12.8 H (4.8-10.8) X10*3/uL Hgb 8.1 L (12.0-16.0) g/dl Hct 26.0 L (37-47) % Plt Count 562 H (160-400) X10*3/uL Microbiology Microbiology Results: Microbiology 11/04/20 02:07 Blood - Venous Blood Culture - Preliminary No growth after 24 hours. 11/04/20 02:07 Blood - Venous Blood Culture - Preliminary No growth after 24 hours. Assessment and Plan (1) Severe anemia: Status: Acute 1/ Acute anemia,obscure occult GI blood loss likely suspect, possibly mucosal blood loss from NOAC, Xarelto associated with higher bleeding risks, apixiban seems to be safer per recent literature. Patient has never had endoscopy in past so do need to exclude underlying neoplasia, PUD< AVM and other causes PLAN: 1/ EGD and colonoscopy tomorrow 2/ Can use heparin if needed vs one shot of lovenox tonight, longer term maybe switch to apixiban (eliquis) 3/ consider echo to re eval right heart and diurese 4/ check hemolysis labs Reference for apixiban vs other NOAC: Differences In Gastrointestinal Safety Profiles Among Novel Oral Anticoagulants: Evidence From A Network [place]-Analysis Donte et al. Clin Epidemiol. 2019; 11: 911?921. Compared to conventional therapy, rivaroxaban was associated with increased risk of MGI bleeding (OR, 1.37; 95% CrI, 1.00?1.85). For apixaban (OR, 0.77; 95% CrI, 0.53?1.07), edoxaban (OR, 0.86; 95% CrI, 0.52?1.18) and dabigatran etexilate (OR,1.22; 95% CrI, 0.82?1.69), evidence was lacking for an increased risk of MGI bleeding compared with conventional therapy. Relative to rivaroxaban, the pooled results favored apixaban with an OR of 0.56 (95% CrI, 0.35?0.88), edoxaban with an OR of 0.62 (95% CrI, 0.35?0.96). No difference of MGI bleeding risk was observed between the rivaroxaban and dabigatran etexilate (OR, 1.34; 95% CrI, 0.71?1.85). Compared with dabigatran etexilate, apixaban (OR, 0.64; 95% CrI, 0.39?1.04) had a trend to reduce the MGI bleeding risk, although the difference was not significant. The risk of MGI bleeding was similar between the edoxaban and dabigatran etexilate (OR, 0.70; 95% CrI, 0.39?1.14). Also, the apixaban had a similar risk of MGI bleeding relative to the edoxaban (OR, 0.91; 95% CrI, 0.56?1.58).
[2020-11-05] MEDS: amLODIPine Besylate 5 MG TABLET PO (08:30)
[2020-11-05] MEDS: 0.9 % Sodium Chloride Flush 3 ML SYRINGE IVFLUSH ×3 (08:30→16:27)
[2020-11-05] MEDS: Cholecalciferol (Vitamin D3) 25 MCG TABLET 50 MCG PO (08:30)
[2020-11-05 11:05] VITALS: BP 147/67; PULSE 95; RESP 20; TEMP 36.4; O2SAT 96
[2020-11-05 13:39] LABS: INTERNATIONAL NORM RATIO 1.3 (0.9-1.1); Prothrombin Time 15.5 SEC (10.8-13.0)
[2020-11-05 14:02] LABS: Immature Retic Fraction 40.2 % (3.0-15.9); Retic HGB Equivalent 19.5 pg (30.0-35.0); Reticulocytes Absolute 0.147 X10*6/uL (0.026-0.095)
[2020-11-05 14:03] LABS: Reticulocyte Percent 5.3 % (0.5-1.8)
[2020-11-05 14:04] LABS: Lactate Dehydrogenase 211 U/L (122-220)
[2020-11-05 15:34] VITALS: BP 120/58; PULSE 90; RESP 18; TEMP 36.6; O2SAT 96
--- NOTE | 2020-11-05 16:08 | P.PNIM_ITS ---
Subjective Subjective Date of Service: 11/05/20 Interval History: Patient offers no acute complaints denies dark-colored stools denies any hematemesis or melena, patient noted to have some heartburn while she was on prednisone and Xarelto together at [facility] otherwise no history of peptic ulcer disease. General no headache, no dizziness , no fever chills. CVS no chest pain, no palpitation. Respiratory no cough, no shortness of breath Gastrointestinal no nausea no vomiting, no abdominal pain, no melena Physical Exam Vital Signs: Vital Signs: Last Vital Signs Temp 98 F 11/05/20 15:34 Pulse 90 11/05/20 15:34 Resp 18 11/05/20 15:34 BP 120/58 L 11/05/20 15:34 Pulse Ox 96 11/05/20 15:34 Body Mass Index 33.3 General patient resting comfortably in no acute distress. Neck is supple no JVD. CVS regular rate rhythm, Respiratory lungs clear to auscultation, no respiratory distress Gastrointestinal abdomen soft, nontender, bowel sounds audible, no no guarding , no rigidity. Extremities bilateral pitting edema Neuro nonfocal Skin no rash Objective Data Current Medications Generic Name Dose Route Start Last Admin Trade Name Freq PRN Reason Stop Dose Admin Amlodipine Besylate 5 mg 11/05/20 09:00 11/05/20 08:30 Amlodipine Besylate 5 Mg Tablet PO 5 mg DAILY TMA Administration Protocol Doxycycline Hyclate 100 mg 11/04/20 22:00 11/04/20 22:30 Doxycycline Hyclate 100 Mg Tablet PO 100 mg Q24H TAM Administration Enoxaparin Sodium 90 mg 11/05/20 16:05 Enoxaparin Sodium 100 Mg/Ml Syringe 1 mg/kg (90 mg) 11/05/20 16:06 SUBCUT ONCE ONE Ceftriaxone Sodium 1 gm/ 50 mls @ 100 mls/hr 11/04/20 22:00 11/04/20 23:43 Sodium Chloride IV Infused Q24H TAM Infusion Pantoprazole Sodium 40 mg 11/04/20 12:07 11/05/20 05:50 Pantoprazole Sodium 40 Mg/10 Ml Vial IVPUSH 40 mg BID@0630,1630 TAM Administration Sodium Chloride 3 ml 11/04/20 01:04 11/05/20 08:30 0.9 % Sodium Chloride Flush 3 Ml Syringe IVFLUSH 3 ml QSHIFT TAM Administration Vitamin D 50 mcg 11/04/20 17:30 11/05/20 08:30 Cholecalciferol (Vitamin D3) 25 Mcg Tablet PO 50 mcg DAILY TAM Administration Labs CBC & Chem 7: 11/04/20 06:50 11/04/20 06:50 Microbiology Microbiology Results: Microbiology 11/04/20 02:07 Blood - Venous Blood Culture - Preliminary No growth after 24 hours. 11/04/20 02:07 Blood - Venous Blood Culture - Preliminary No growth after 24 hours. Assessment and Plan (1) Severe anemia: Status: Acute (2) Pulmonary embolism: Problem details: 10/04/2020 Status: Acute (3) Hypertension: Problem details: 2016 high BP Status: Acute Assessment and Plan: Acute anemia no active GI bleed Hgb of 5.9 and hematocrit 19.8 on admission, status post 2 units packed RBC hematocrit improved now 26 continue IV PPI, DC Xarelto, obtained hemolysis workup including LDH haptoglobin and retic count all within normal range Case discussed with patient will undergo upper endoscopy and colonoscopy at a.m. Explained to patient the reason for endoscopies and answered all her questions regarding her stay in hospital. History of recent COVID infection and abnormal chest x-ray due to COVID Pneumonia No sepsis, tachycardia on admission likely due to anemia, leukocytosis likely due to recent use of steroid that is trending down Patient asymptomatic with no cough no fever will discontinue antibiotic Rocephin and doxycycline Will wean oxygen currently on 2 L with finger oximetry 96% patient is not on home O2 Recent history of pulmonary embolism [facility] the [facility] Xarelto on hold due to profound anemia, will give 1 dose of Lovenox. hypertension BP stable, continue amlodipine DVT prophylaxis Venodyne given GI bleed
[2020-11-05] MEDS: Enoxaparin Sodium 100 MG/ML SYRINGE 90 MG SUBCUT (16:27)
[2020-11-05 18:53] VITALS: BP 141/63; PULSE 91; RESP 18; TEMP 37; O2SAT 96
[2020-11-05] MEDS: bisacodyL 5 MG TABLET.DR 20 MG PO (19:08)
[2020-11-05] MEDS: polyethylene glycoL 3350 17 GM POWD.PACK 238 GM PO (20:24)
[2020-11-05 23:52] VITALS: BP 139/64; PULSE 87; RESP 18; TEMP 37.2; O2SAT 95
[2020-11-06] VITALS (9 sets, daily range): BP systolic 116–140; BP diastolic 55–64; PULSE 87–103; RESP 16–21; TEMP 36.4–37.4; O2SAT 91–100; BMI 33.3
[2020-11-06] MEDS: 0.9 % Sodium Chloride Flush 3 ML SYRINGE IVFLUSH ×4 (00:22→19:29)
[2020-11-06] MEDS: Pantoprazole Sodium 40 MG/10 ML VIAL IVPUSH ×2 (05:30→17:03)
[2020-11-06 06:09] LABS: MANUAL DIFF FLAG NO
[2020-11-06 06:13] LABS: Basophils Percent Auto 0.2 % (0-2); Eosinophils Absolute Auto 0.2 X10*3/uL (0.0-0.4); Eosinophils Percent Auto 1.7 % (0-4); Hematocrit 25.5 % (37-47); Hemoglobin 7.8 g/dl (12.0-16.0); Imm Gran Pct Auto 0.8 % (0.0-0.4); Lymphocytes Absolute Auto 2.4 X10*3/uL (1.2-4.9); Lymphocytes Percent Auto 19.4 % (20-40); Mean Corpuscular HGB Conc 30.6 g/dl (31.0-35.0); Mean Corpuscular Hemoglobin 27.7 pg (27.0-33.0); Mean Corpuscular Volume 90.4 fL (80-98); Mean Platelet Volume 10.1 fL (9.4-12.3); NRBC Pct Auto 0.2 /100WBC (0.0-0.2); Neutrophils Absolute Auto 8.6 X10*3/uL (2.0-8.3); Neutrophils Percent Auto 69.9 % (45-73); Platelet Count 490 X10*3/uL (160-400); Red Blood Count 2.82 X10*6/uL (4.20-5.50); Red Cell Distribution Width 16.5 % (11.0-16.0); White Blood Count 12.3 X10*3/uL (4.8-10.8)
[2020-11-06] MEDS: Cholecalciferol (Vitamin D3) 25 MCG TABLET 50 MCG PO (09:04)
[2020-11-06] MEDS: amLODIPine Besylate 5 MG TABLET PO (09:05)
--- NOTE | 2020-11-06 10:12 | PM.EVENT ---
Event Note Date of Service: 11/06/20 Event Note: PULM . NOTE I have seen and examined this patient. Reviewed her history , and current Lab/Radiologic data . Complete note is dictated . A: H/O Recent COVID Pneumonia,with residual ,Pneumonitis /ficrotic changes in Rt L.L. and Lt base . No active PN. H/O Pulm Embolism , as complications of Covid Infection . Hypoxemia , sec to VQ. abnormalities . Profound Anemia, R/O occult G.I. Bleeding P: hold off anticoagulation at this time . O2 2L/Mt No need of Antibiotic therapy at this time . ramona diggs .
--- NOTE | 2020-11-06 10:22 | MHC.CM.PN ---
met with pt pt explins that she lives with her son and his family she has been using home 02 since raudel pt will have own transportasion home
--- NOTE | 2020-11-06 11:03 | CONS_ITS ---
DATE OF SERVICE: 11/06/2020 HISTORY OF PRESENT ILLNESS: This 75-year-old female is admitted here with marked generalized weakness, and in the emergency room, found to have gross anemia, hemoglobin of 5.9. The patient denies having nausea, vomiting, or hematemesis and also denies having any change in the color of her stools and definitely has had no alem bleeding per rectum. She also denies any abdominal pain. RECENT PAST MEDICAL HISTORY: About 4 weeks ago, she was admitted at [facility] with cough, shortness of breath, and low-grade fever, and diagnosed to have COVID infection. She did have bilateral pneumonitis. She was treated with usual medical regimen. Also during the course of her hospitalization, was found to have pulmonary embolism in the lower lobes and started on anticoagulation with Xarelto. The patient was sent home on Xarelto 20 mg daily and oxygen 2 L/minute. Prior to this illness, she did not have any history of chronic lung disease. She did smoke in her younger age, but quit 20 years ago. REVIEW OF SYSTEMS: Complained of generalized weakness. Denied chest pain or shortness of breath prior to this illness. Denied any palpitations or congestive heart failure. Her appetite has been poor since her COVID infection, but denied nausea or vomiting. PHYSICAL EXAMINATION: GENERAL: 75-year-old female, very pleasant and fully alert and orientated, is not in any acute distress at this time. She has been transfused 2 units of red blood cells with increase in hemoglobin and currently she looks only slightly pale and there is no jaundice. VITAL SIGNS: Respiratory rate is 20. No distress. EAR, NOSE, THROAT: Examination is essentially unremarkable. NECK: No JVD. Carotids normal. Trachea midline. CHEST: Symmetrical. Percussion note resonant. Has good breath sounds on both sides. There are inspiratory crackles and some scattered wheezes over the right lower lobe and a few over the left base. CARDIAC: Sounds are distant, but rhythm regular. No murmurs or gallops. ABDOMEN: Flat, soft, and nontender. EXTREMITIES: No pitting edema. Peripheral pulses are normal and there is no tenderness. No swelling. DIAGNOSTIC DATA: Chest x-ray shows ground-glass and reticular densities in the right mid and lower lobe and also at the left base, but no definite consolidation. LABORATORY DATA: On admission, white cell count 14.5, hemoglobin 5.9, platelet count 636. INR 2.3. COVID test negative. Today, her hemoglobin is 7.8, WBC is 12.3. Current O2 saturation is 96%. CLINICAL IMPRESSION: Profound anemia, rule out occult GI bleeding. If occult GI bleeding is ruled out, then she would need thorough workup for anemia, may be bone marrow changes caused by acute COVID infection. Diagnosis of recent COVID pneumonia with residual pneumonitis and inflammatory changes in the basilar areas. Recent diagnosis of pulmonary embolism as part of acute COVID infection. The patient has been on anticoagulation, but at this time, the risk from continued anticoagulation would be much higher. RECOMMENDATIONS: I think we should hold off anticoagulation at this time. Continue treating with oxygen 2 L/minute. GI workup and then if needed, she should have hematologic workup. If there is no acute GI bleeding, then we will consider restarting on anticoagulation. No need of any routine antibiotics at this time because the lung findings are more related to recent COVID infection. Oxygen 2 L/minute should be continued. Thank you very much for asking me to see this patient. MD IZABEL Hendrix/YRN / [id number]
--- NOTE | 2020-11-06 11:52 | HO.ANESPROP2 ---
[facility] Past Medical History Medical History Cataract Hypercholesterolemia Hypertension Obesity (BMI 30-39.9) Peripheral vascular disease Trigger finger of right hand Functional capacity: independent ambulation Family History Family History Father Prostate cancer Diabetes Mother Pneumonia Surgical History Surgical History History of cataract surgery Social History Social History Household Members: Children Housing: House Do you presently have visiting nurse or other home services: No Smoking Status: Former smoker Tobacco Type: Cigarette Smoked in Last 30 Days: No Smoking Quit Date: 1992 Patient Interested in Nicotine Replacement: No Patient Given Instructions on How to Stop Smoking: No Second Hand Smoke Exposure: No Use of substances other than those prescribed or required for medical reasons: No Currently Displaying Signs/Symptoms of Drug Intoxication Withdrawal: No Have you been hit, kicked, punched, or otherwise hurt by someone within the past year? If so, by whom?: No Do you feel safe in your current relationship?: No Current Relationship Is there a partner from a previous relationship who is making you feel unsafe now?: No Are you made to feel afraid or neglected: No Spiritual Healthcare Practices: NO Gnosticism Healthcare Practices: NO Cultural Healthcare Practices: NO Advance Directives: No Advance Directives Information Provided: Yes Do you have thoughts of harming others: None Do you have a plan to hurt others: No Plan Recently lost weight without trying: Yes service: No Meds Allergies Allergy/AdvReac Type Severity Reaction Status Date / Time codeine [CODEINE] Allergy Intermediate TONGUE Verified 11/03/20 18:43 SWELLING Codeine Phosphate Allergy Unknown tongue Verified 11/03/20 18:43 swelling Home Medications Medication Instructions Recorded Confirmed Type cholecalciferol (vitamin D3) 50 50 mcg PO DAILY 08/10/20 11/04/20 History mcg (2,000 unit) capsule rivaroxaban 20 mg tablet 20 mg PO DAILY 10/16/20 11/04/20 History rivaroxaban [Xarelto] 1 tab PO BID 11/06/20 11/06/20 History Exam Exam Date and Time: November 06, 2020 1152 Height,Weight and Vital Signs: Height 5 ft 5 in Weight 90.718 kg Last Vital Signs Temp 98.0 F 11/06/20 11:40 Pulse 93 11/06/20 11:40 Resp 16 11/06/20 11:40 BP 140/61 H 11/06/20 11:40 Pulse Ox 97 11/06/20 11:40 Pertinent Lab Results Pertinent Lab Results: Laboratory Tests 11/03/20 11/03/20 11/03/20 20:32 20:48 20:48 WBC 14.5 H RBC 2.20 L Hgb 5.9 L* Hct 19.8 L* MCV 90.0 MCH 26.8 L MCHC 29.8 L RDW 16.6 H Plt Count 636 H MPV 9.9 Immature Gran % (Auto) Neut % (Auto) Lymph % (Auto) [place] % (Auto) Eos % (Auto) Baso % (Auto) Lymph # (Auto) [place] # (Auto) Eos # (Auto) Baso # (Auto) Abs Immat Gran (auto) Absolute Neuts (auto) Absolute Nucleated RBC 0.120 H Nucleated RBC % (auto) 0.8 H Neutrophils % (Manual) 76 H Band Neutrophils % 2 L Lymphocytes % (Manual) 13 L Atypical Lymphs % (Man) 2 Monocytes % (Manual) 4 Eosinophils % (Manual) 3 Abs Neuts (Manual) 11.3 H Lymphocytes # (Manual) 1.9 Atyp Lymphs # (Manual) 0.3 Monocytes # (Manual) 0.6 Eosinophils # (Manual) 0.4 Nucleated RBCs 1 H Platelet Estimate SLIGHTLY INCREASED Plt Morphology Comment NORMAL RBC Morphology NOTED Polychromasia 1+ Hypochromasia 2+ Tear Drop Cells 1+ Smear Tech's Comments Absolute Retic Percent Retic Immature Retic Fraction Retic Hgb Equivalent Hold Purple Top SEE NOTE PT INR APTT Sodium Potassium Chloride Carbon Dioxide Anion Gap BUN Creatinine Estim Creat Clear Calc Estimated GFR Random Glucose Lactic Acid Calcium Iron TIBC % Saturation Unsat Iron Binding Ferritin Total Bilirubin Direct Bilirubin AST ALT Alkaline Phosphatase Lactate Dehydrogenase B-Natriuretic Peptide Total Protein Albumin Stool Occult Blood POS COVID-19 ([facility]) COVID-19 Clin Com Blood Type Antibody Screen Crossmatch 11/03/20 11/03/20 11/03/20 20:48 20:48 20:48 WBC RBC Hgb Hct MCV MCH MCHC RDW Plt Count MPV Immature Gran % (Auto) Neut % (Auto) Lymph % (Auto) [place] % (Auto) Eos % (Auto) Baso % (Auto) Lymph # (Auto) [place] # (Auto) Eos # (Auto) Baso # (Auto) Abs Immat Gran (auto) Absolute Neuts (auto) Absolute Nucleated RBC Nucleated RBC % (auto) Neutrophils % (Manual) Band Neutrophils % Lymphocytes % (Manual) Atypical Lymphs % (Man) Monocytes % (Manual) Eosinophils % (Manual) Abs Neuts (Manual) Lymphocytes # (Manual) Atyp Lymphs # (Manual) Monocytes # (Manual) Eosinophils # (Manual) Nucleated RBCs Platelet Estimate Plt Morphology Comment RBC Morphology Polychromasia Hypochromasia Tear Drop Cells Smear Tech's Comments Absolute Retic Percent Retic Immature Retic Fraction Retic Hgb Equivalent Hold Purple Top PT 27.0 H INR 2.3 H APTT 43.9 H Sodium 141 Potassium 4.3 Chloride 99 Carbon Dioxide 31 H Anion Gap 15 BUN 15 Creatinine 0.96 Estim Creat Clear Calc 57.2 Estimated GFR 57 Random Glucose 128 H Lactic Acid Calcium 8.4 Iron TIBC % Saturation Unsat Iron Binding Ferritin Total Bilirubin 0.5 Direct Bilirubin 0.2 AST 12 ALT 8 Alkaline Phosphatase 118 H Lactate Dehydrogenase B-Natriuretic Peptide 38 Total Protein 6.4 L Albumin 3.2 L Stool Occult Blood COVID-19 ([facility]) COVID-19 Clin [facility] Blood Type Antibody Screen Crossmatch 11/03/20 11/03/20 11/04/20 20:49 22:18 00:30 WBC RBC Hgb Hct MCV MCH MCHC RDW Plt Count MPV Immature Gran % (Auto) Neut % (Auto) Lymph % (Auto) [place] % (Auto) Eos % (Auto) Baso % (Auto) Lymph # (Auto) [place] # (Auto) Eos # (Auto) Baso # (Auto) Abs Immat Gran (auto) Absolute Neuts (auto) Absolute Nucleated RBC Nucleated RBC % (auto) Neutrophils % (Manual) Band Neutrophils % Lymphocytes % (Manual) Atypical Lymphs % (Man) Monocytes % (Manual) Eosinophils % (Manual) Abs Neuts (Manual) Lymphocytes # (Manual) Atyp Lymphs # (Manual) Monocytes # (Manual) Eosinophils # (Manual) Nucleated RBCs Platelet Estimate Plt Morphology Comment RBC Morphology Polychromasia Hypochromasia Tear Drop Cells Smear Tech's Comments Absolute Retic Percent Retic Immature Retic Fraction Retic Hgb Equivalent Hold Purple Top PT INR APTT Sodium Potassium Chloride Carbon Dioxide Anion Gap BUN Creatinine Estim Creat Clear Calc Estimated GFR Random Glucose Lactic Acid 0.8 Calcium Iron TIBC % Saturation Unsat Iron Binding Ferritin Total Bilirubin Direct Bilirubin AST ALT Alkaline Phosphatase Lactate Dehydrogenase B-Natriuretic Peptide Total Protein Albumin Stool Occult Blood COVID-19 ([facility]) Negative COVID-19 Clin Com See Note Blood Type A Positive Antibody Screen NEGATIVE Crossmatch See Detail 11/04/20 11/04/20 11/04/20 03:32 06:50 06:50 WBC 12.4 H 12.8 H RBC 2.82 L D 2.92 L Hgb 7.9 L D 8.1 L Hct 25.3 L D 26.0 L MCV 89.7 89.0 MCH 28.0 27.7 MCHC 31.2 31.2 RDW 16.2 H 16.0 Plt Count 501 H 562 H MPV 9.2 L 9.6 Immature Gran % (Auto) 1.4 H 1.4 H Neut % (Auto) 67.4 71.2 Lymph % (Auto) 20.2 17.7 L [place] % (Auto) 8.5 7.4 Eos % (Auto) 2.3 2.0 Baso % (Auto) 0.2 0.3 Lymph # (Auto) 2.5 2.3 [place] # (Auto) 1.1 1.0 Eos # (Auto) 0.3 0.3 Baso # (Auto) 0.0 0.0 Abs Immat Gran (auto) 0.17 H 0.18 H Absolute Neuts (auto) 8.3 9.1 H Absolute Nucleated RBC 0.150 H 0.170 H Nucleated RBC % (auto) 1.2 H 1.3 H Neutrophils % (Manual) Band Neutrophils % Lymphocytes % (Manual) Atypical Lymphs % (Man) Monocytes % (Manual) Eosinophils % (Manual) Abs Neuts (Manual) Lymphocytes # (Manual) Atyp Lymphs # (Manual) Monocytes # (Manual) Eosinophils # (Manual) Nucleated RBCs Platelet Estimate Plt Morphology Comment RBC Morphology Polychromasia Hypochromasia Tear Drop Cells Smear Tech's Comments VERIFIED Absolute Retic 0.131 H Percent Retic 4.5 H Immature Retic Fraction 39.7 H Retic Hgb Equivalent 21.1 L Hold Purple Top PT INR APTT Sodium 140 Potassium 4.2 Chloride 100 Carbon Dioxide 32 H Anion Gap 12 BUN 13 Creatinine 0.80 Estim Creat Clear Calc 68.6 Estimated GFR > 60 Random Glucose 114 Lactic Acid Calcium 7.8 L D Iron 264 H TIBC 282 % Saturation 94 H Unsat Iron Binding 18 Ferritin 37 Total Bilirubin Direct Bilirubin AST ALT Alkaline Phosphatase Lactate Dehydrogenase B-Natriuretic Peptide Total Protein Albumin Stool Occult Blood COVID-19 ([place]) COVID-19 [employer] [facility] Blood Type Antibody Screen Crossmatch 11/05/20 11/05/20 11/05/20 13:23 13:23 13:24 WBC RBC Hgb Hct MCV MCH MCHC RDW Plt Count MPV Immature Gran % (Auto) Neut % (Auto) Lymph % (Auto) [place] % (Auto) Eos % (Auto) Baso % (Auto) Lymph # (Auto) [place] # (Auto) Eos # (Auto) Baso # (Auto) Abs Immat Gran (auto) Absolute Neuts (auto) Absolute Nucleated RBC Nucleated RBC % (auto) Neutrophils % (Manual) Band Neutrophils % Lymphocytes % (Manual) Atypical Lymphs % (Man) Monocytes % (Manual) Eosinophils % (Manual) Abs Neuts (Manual) Lymphocytes # (Manual) Atyp Lymphs # (Manual) Monocytes # (Manual) Eosinophils # (Manual) Nucleated RBCs Platelet Estimate Plt Morphology Comment RBC Morphology Polychromasia Hypochromasia Tear Drop Cells Smear Tech's Comments Absolute Retic 0.147 H Percent Retic 5.3 H Immature Retic Fraction 40.2 H Retic Hgb Equivalent 19.5 L Hold Purple Top PT 15.5 H D INR 1.3 H APTT Sodium Potassium Chloride Carbon Dioxide Anion Gap BUN Creatinine Estim Creat Clear Calc Estimated GFR Random Glucose Lactic Acid Calcium Iron TIBC % Saturation Unsat Iron Binding Ferritin Total Bilirubin Direct Bilirubin AST ALT Alkaline Phosphatase Lactate Dehydrogenase 211 B-Natriuretic Peptide Total Protein Albumin Stool Occult Blood COVID-19 ([place]) COVID-19 [employer] [facility] Blood Type Antibody Screen Crossmatch 11/06/20 05:23 WBC 12.3 H RBC 2.82 L Hgb 7.8 L Hct 25.5 L MCV 90.4 MCH 27.7 MCHC 30.6 L RDW 16.5 H Plt Count 490 H MPV 10.1 Immature Gran % (Auto) 0.8 H Neut % (Auto) 69.9 Lymph % (Auto) 19.4 L [place] % (Auto) 8.0 Eos % (Auto) 1.7 Baso % (Auto) 0.2 Lymph # (Auto) 2.4 [place] # (Auto) 1.0 Eos # (Auto) 0.2 Baso # (Auto) 0.0 Abs Immat Gran (auto) 0.10 H Absolute Neuts (auto) 8.6 H Absolute Nucleated RBC 0.020 H Nucleated RBC % (auto) 0.2 Neutrophils % (Manual) Band Neutrophils % Lymphocytes % (Manual) Atypical Lymphs % (Man) Monocytes % (Manual) Eosinophils % (Manual) Abs Neuts (Manual) Lymphocytes # (Manual) Atyp Lymphs # (Manual) Monocytes # (Manual) Eosinophils # (Manual) Nucleated RBCs Platelet Estimate Plt Morphology Comment RBC Morphology Polychromasia Hypochromasia Tear Drop Cells Smear Tech's Comments Absolute Retic Percent Retic Immature Retic Fraction Retic Hgb Equivalent Hold Purple Top PT INR APTT Sodium Potassium Chloride Carbon Dioxide Anion Gap BUN Creatinine Estim Creat Clear Calc Estimated GFR Random Glucose Lactic Acid Calcium Iron TIBC % Saturation Unsat Iron Binding Ferritin Total Bilirubin Direct Bilirubin AST ALT Alkaline Phosphatase Lactate Dehydrogenase B-Natriuretic Peptide Total Protein Albumin Stool Occult Blood COVID-19 ([facility]) COVID-19 Clin Com Blood Type Antibody Screen Crossmatch Airway Mallampati Class: I TM Dist: >3cm Neck ROM: Full Denture: Upper and Lower Loose/Missing/Broken Teeth: Yes (Edentulous) Heart: RRR Lungs: CTA Assessment and Plan Assessment Anesthesia Assessment: Anesthesia Plan Discussed and Chart Reviewed Final Anesthetic Review NPO: Yes ASA Class: III Final Preanesthetic Review: Meds/Allgs Chart Reviewed, Consent Obtained/Reviewed and Anes Risks/Benef Reviewed Patient Risk: Intermediate Procedure Risk: Intermediate Anesthetic Plan Anesthetic Plan: MAC: Disposition: Standard PACU
--- NOTE | 2020-11-06 12:35 | MHC.SHP ---
Pre-Procedural Eval Section A The patient is an INPATIENT: Yes The History & Physical has been completed within 30 days and I have reviewed it.: Yes Section B Chief Complaint: ANEMIA Allergies: Allergies Allergy/AdvReac Type Severity Reaction Status Date / Time codeine [CODEINE] Allergy Intermediate TONGUE Verified 11/03/20 18:43 SWELLING Codeine Phosphate Allergy Unknown tongue Verified 11/03/20 18:43 swelling Plan Diagnosis/Plan: Unchanged I have reviewed the history and physical and performed a pertinent physical examination on my patient. No changes have occurred unless specified.
--- NOTE | 2020-11-06 12:40 | P.OP_ITS ---
Operative Note Operative Note Date of Service: 11/06/20 Narrative: Operative Information Procedure Description: EGD, Colonoscopy FLEXIBLE TRANSORAL UPPER GASTROINTESTINAL ENDOSCOPY AND COLONOSCOPY PROCEDURE NOTE UPPER ENDOSCOPY Consent: Indications for the procedure and potential complications of bleeding, perforation, reaction to medications and missed diagnosis were discussed with the patient and informed consent was obtained. Instrument: Olympus GIF H 190 J mid size upper endoscope Monitoring: Vital signs and clinical assessment, continuous EKG monitoring, Pulse oximetry, Carbon Dioxide monitoring and blood pressure monitoring were done throughout the procedure. Procedure: The patient was placed in the left lateral decubitis position and pre-procedure medications were administered and a bite block was placed. The endoscope was inserted into the mouth and advanced under direct vision to the third part of duodenum. A careful inspection was made as the upper endoscope was withdrawn including a retroflexed examination of the proximal stomach; Findings and interventions are described below. Findings: Larynx:normal Esophagus: GE junction at 37 cm, diaphragm hiatus at 37 cm, mild esophagitis, LA grade A Stomach: Normal mucosa. Biopsies were obtained. Grade 2 flap valve on retroflexed examination of the cardia. Duodenum: Mild bulbar duodenitis, bx taken Intervention: Biopsies as noted above COLONOSCOPY Instrument: Olympus variable stiffness pediatric scope 190L Colonoscopy Monitoring: Vital signs and clinical assessment, continuous EKG monitoring, Pulse oximetry, Carbon Dioxide monitoring and blood pressure monitoring were done throughout the procedure. Colon withdrawal time was 10 minutes. Procedure: The patient was placed in the left lateral decubitis position and pre-procedure medications were administered. After a digital rectal examination of the ano-rectum, the video colonoscope was inserted into the rectum and advanced through the colon to the cecum/TI. The colonoscope was slowly withdrawn in a retrograde panoramic fashion and the colon mucosa was carefully examined including a retroflexed view of the rectum. Findings and interventions are described below. Procedure Difficulty:easy Findings: Terminal Ileum-normal Cecum:normal Ascending Colon: normal Transverse Colon -normal Descending Colon:normal Sigmoid Colon: severe diverticulosis with wide mouthed diverticula with mucosal hypertrophy, Rectum: Retroflexion with moderate sized internal hemorrhoids, grade II Anorectum - normal Colon preparation: [place] Bowel Preparation Scale Right colon; 3 Transverse colon: 3 Left colon; 3 (0 = Unprepared colon segment with mucosa not seen due to solid stool that cannot be cleared. 1 = Portion of mucosa of the colon segment seen, but other areas of the colon segment not well seen due to staining, residual stool and/or opaque liquid. 2 = Minor amount of residual staining, small fragments of stool and/or opaque liquid, but mucosa of colon segment seen well. 3 = Entire mucosa of colon segment seen well with no residual staining, small fragments of stool or opaque liquid) Impression and Post Procedure Diagnosis: Endoscopy Findings: duodenitis mild esophagitis Colonoscopy Findings: internal hemorrhoids diverticular disease Plan: Await Pathology results Repeat Colonoscopy in 10 years or earlier if clinically indicated and if health allows High fiber diet leaflet avoid straining at stool, epsom salts and sitz bath, anusol supps or cream prn o/p capsule endoscopy can restart NOAC tomorrow, preferable eliquis as opposed to xarelto Above findings were reviewed with the patient and relevant handouts were provided if indicated.
--- NOTE | 2020-11-06 12:40 | PM.OP ---
Brief Operative Note Date of Service: 11/06/20 Pre-op diagnosis: anemia Post-op diagnosis: same Procedure: see op note Surgeon: Theresa Dan MD Anesthesia: MAC Estimated blood loss (mL): 0 Condition: stable Disposition: PACU
--- NOTE | 2020-11-06 14:07 | P.PNIM_ITS ---
Subjective Subjective Date of Service: 11/07/20 Interval History: Patient resting comfortably NPO for upper and lower endoscopy this morning did not notice any episode of melena or hematemesis. ROS General no headache, no dizziness , no fever chills. CVS no chest pain, no palpitation. Respiratory no cough, no shortness of breath Gastrointestinal no nausea, no vomiting, no abdominal pain, no melena Physical Exam Vital Signs: Vital Signs: Last Vital Signs Temp 97.5 F 11/06/20 13:23 Pulse 87 11/06/20 13:23 Resp 16 11/06/20 13:23 BP 139/61 11/06/20 13:23 Pulse Ox 97 11/06/20 13:23 Body Mass Index 33.3 General patient resting comfortably in no acute distress. Neck is supple no JVD. CVS regular rate rhythm, Respiratory lungs clear to auscultation, no respiratory distress Gastrointestinal abdomen soft, nontender, bowel sounds audible, no guarding , no rigidity. Extremities bilateral pitting edema Neuro nonfocal Skin no rash Objective Data Current Medications Generic Name Dose Route Start Last Admin Trade Name Angelq PRN Reason Stop Dose Admin Amlodipine Besylate 5 mg 11/05/20 09:00 11/06/20 09:05 Amlodipine Besylate 5 Mg Tablet PO 5 mg DAILY TAM Administration Protocol Pantoprazole Sodium 40 mg 11/04/20 12:07 11/06/20 05:30 Pantoprazole Sodium 40 Mg/10 Ml Vial IVPUSH 40 mg BID@0630,1630 TAM Administration Sodium Chloride 3 ml 11/04/20 01:04 11/06/20 09:05 0.9 % Sodium Chloride Flush 3 Ml Syringe IVFLUSH 3 ml QSHIFT TAM Administration Vitamin D 50 mcg 11/04/20 17:30 11/06/20 09:04 Cholecalciferol (Vitamin D3) 25 Mcg Tablet PO 50 mcg DAILY TAM Administration Labs CBC & Chem 7: 11/07/20 05:32 11/04/20 06:50 Microbiology Microbiology Results: Microbiology 11/04/20 02:07 Blood - Venous Blood Culture - Preliminary No growth after 48 hours. 11/04/20 02:07 Blood - Venous Blood Culture - Preliminary No growth after 48 hours. Assessment and Plan (1) Pulmonary embolism: Problem details: 10/04/2020 Status: Acute (2) Pneumonia due to COVID-19 virus: Problem details: September 16, 2020 Status: Acute (3) Hypercholesterolemia: Status: Acute (4) Severe anemia: Status: Acute (5) Hypertension: Problem details: 2016 high BP Status: Acute Assessment and Plan: Acute anemia no active GI bleed noted Hgb of 5.9 and hematocrit 19.8 on admission, status post 2 units packed RBC hematocrit improved now 25.5 continue IV PPI, hemolysis workup including LDH haptoglobin and retic count all within normal range, iron studies within normal range, stool guaiac positive No history of melena, no history of hematemesis, patient provided history of heartburn while she was on dexamethasone and Xarelto at [facility]. Case discussed with patient will undergo upper endoscopy and colonoscopy today If no source of bleed found will obtained hematology consultation History of recent COVID infection and abnormal chest x-ray due to COVID Pneumonia No sepsis, tachycardia on admission likely due to anemia, leukocytosis likely due to recent use of steroid that is trending down Patient asymptomatic with no cough no fever therefore antibiotic discontinued Will wean oxygen currently on 2 L with finger oximetry 96% patient is not on home O2 Recent history of pulmonary embolism diagnosed in the beginning of October at [facility] Xarelto on hold due to profound anemia, 1 dose of Lovenox given yesterday follow on upper and lower endoscopy report and will make decision about resuming anticoagulation Case discussed with Dr. Phelan. hypertension BP stable, continue amlodipine DVT prophylaxis Venodyne given anemia
[2020-11-07] VITALS (10 sets, daily range): BP systolic 123–150; BP diastolic 58–67; PULSE 91–105; RESP 18–20; TEMP 36.1–37.1; O2SAT 85–96
[2020-11-07] MEDS: Pantoprazole Sodium 40 MG/10 ML VIAL IVPUSH (06:07)
[2020-11-07 06:21] LABS: MANUAL DIFF FLAG NO
[2020-11-07 06:27] LABS: Basophils Percent Auto 0.4 % (0-2); Eosinophils Absolute Auto 0.2 X10*3/uL (0.0-0.4); Hematocrit 25.9 % (37-47); Hemoglobin 7.7 g/dl (12.0-16.0); Imm Gran Abs Auto 0.05 X10*3/uL (0.00-0.03); Imm Gran Pct Auto 0.5 % (0.0-0.4); Lymphocytes Absolute Auto 1.7 X10*3/uL (1.2-4.9); Mean Corpuscular HGB Conc 29.7 g/dl (31.0-35.0); Mean Corpuscular Hemoglobin 27.5 pg (27.0-33.0); Mean Corpuscular Volume 92.5 fL (80-98); Monocytes Absolute Auto 0.9 X10*3/uL (0.1-1.2); Monocytes Percent Auto 9.1 % (2-11); Neutrophils Absolute Auto 7.2 X10*3/uL (2.0-8.3); Platelet Count 443 X10*3/uL (160-400); Red Cell Distribution Width 17.1 % (11.0-16.0); White Blood Count 10.1 X10*3/uL (4.8-10.8)
[2020-11-07] MEDS: Cholecalciferol (Vitamin D3) 25 MCG TABLET 50 MCG PO (07:49)
[2020-11-07] MEDS: 0.9 % Sodium Chloride Flush 3 ML SYRINGE IVFLUSH ×3 (07:49→23:34)
[2020-11-07] MEDS: amLODIPine Besylate 5 MG TABLET PO (07:52)
--- NOTE | 2020-11-07 09:55 | P.PNPL_ITS ---
Subjective Subjective Date of Service: 11/07/20 Principal diagnosis: Anemia,Resp. failure ( Hypoxemia ) Interval history: This 75 years old very pleasant female does not have any respiratory distress but still feels short of breath on minimal activity. She continues to use oxygen 2 L/minute. Has had no fever or chills, and no chest pain. Patient remains very anemia. Had upper endoscopy as well as colonoscopy yesterday, and no gross bleeding was noted. Objective Data Labs CBC & Chem 7: 11/07/20 05:32 11/04/20 06:50 Labs: Laboratory Results - last 24 hr 11/03/20 11/07/20 20:48 05:32 WBC 10.1 RBC 2.80 L Hgb 7.7 L Hct 25.9 L MCV 92.5 MCH 27.5 MCHC 29.7 L RDW 17.1 H Plt Count 443 H MPV 10.0 Immature Gran % (Auto) 0.5 H Neut % (Auto) 71.0 Lymph % (Auto) 17.0 L [place] % (Auto) 9.1 Eos % (Auto) 2.0 Baso % (Auto) 0.4 Lymph # (Auto) 1.7 [place] # (Auto) 0.9 Eos # (Auto) 0.2 Baso # (Auto) 0.0 Abs Immat Gran (auto) 0.05 H Absolute Neuts (auto) 7.2 Absolute Nucleated RBC 0.000 Nucleated RBC % (auto) 0.0 Smear Path Review SEE NOTE Microbiology Microbiology Results: Microbiology 11/04/20 02:07 Blood - Venous Blood Culture - Preliminary No growth after 48 hours. 11/04/20 02:07 Blood - Venous Blood Culture - Preliminary No growth after 48 hours. Review of Systems Review of Systems Yes all other systems are reviewed and are negative Physical Exam Vital Signs: Vital Signs: Last Vital Signs Temp 97 F 11/07/20 07:00 Pulse 96 11/07/20 07:52 Resp 18 11/07/20 07:00 BP 140/64 H 11/07/20 07:52 Pulse Ox 92 11/07/20 07:00 Body Mass Index 33.3 Const: General: healthy appearing, comfortable, no acute distress, alert and awake Orientation/consciousness: patient oriented x3 HENMT: Head: Yes normal to inspection General nose exam: No nasal polyps present and No nasal discharge present Face and sinus: Yes sinuses nontender Mouth: oropharynx normal Throat: Yes posterior oropharynx normal Eyes: General: appearance normal, both eyes and all related structures Neck: Neck: Yes normal visual inspection, Yes no lymphadenopathy, Yes trachea midline and Yes no JVD Thyroid: Thyroid normal Chest: Chest palpation & inspection: normal inspection of the chest and normal palpation of entire chest wall Resp: Effort & Inspection: normal respiratory effort Auscultation: clear to auscultation bilaterally and crackles (Afew over Rt base ) Cardio: Palpation: normal PMI Rate: regular rate Rhythm: regular rhythm Heart sounds: Gallop heart sound present and Murmur heart sound present Peripheral pulses: Peripheral pulses 2+ throughout GI: Palpation (GI): Soft to palpation, Tenderness to palpation present (GI), No hepatosplenomegaly present and Palpable mass present Auscultation: normal bowel sounds Back/Spine/Pelvis: Thoracic/Lumbar Spine: thoracic and lumbar spine normal to inspection Skin: General skin exam: no rashes or lesions noted Neuro: General: patient oriented x3 and no focal motor deficits Cranial nerves: Yes CN's II-XII intact bilaterally Extrem: General: Yes normal to inspection, Yes no clubbing, cyanosis or edema, Yes no calf tenderness and Yes venous stasis dermatitis Psych: Speech and movement: Normal speech and movement present Assessment and Plan Assessment and plan (1) Pneumonia due to COVID-19 virus: Problem details: September 16, 2020, resolved , except for some residual pneumonitis/fibrotic changes at Rt. base Status: Acute Assessment and Plan: Does not need ant active treatment for this . (2) Hypoxemia: Problem details: Mild, Patient symptomatic ,mainly because of severe Anemia Status: Acute Assessment and Plan: May use O2 2L/mt PRN for Resp. distress (3) Severe anemia: Problem details: Etiology , unknown at this time , Not explained by any occult G.I. bleeding Status: Acute Assessment and Plan: Needs full Hematologic W/U , Transfuse to keep O2 sat above 25 . Time Spent With Patient Time: Total time spent is greater than 50% in coordination of care (as documented) at patient's floor/unit and/or counseling patient: Time with patient: 15 - 24 minutes
--- NOTE | 2020-11-07 10:27 | HO.POSTANES ---
Post Anesthesia Evaluation Post Anesthesia Evaluation Vital Signs: Vital Signs Temp Pulse Resp BP Pulse Ox 11/07/20 07:52 96 140/64 H 11/07/20 07:00 97 F 96 18 140/64 H 92 11/07/20 04:00 97.3 F 94 18 124/62 93 11/07/20 00:00 97.8 F 102 H 18 123/58 L 90 L Anesthesia: Monitored Mental Status: Awake Pain Control: Satisfactory Nausea/Vomiting: None Hydration: Adequate Anesthesia-Related Issues: No Anes. Related Issues
--- NOTE | 2020-11-07 12:46 | PM.HEMONCCN ---
Subjective - Subjective Chief complaint: Consult for anemia. Patient: new to practice Consult date: 11/07/20 Requesting Physician: Valentina Primary Care Provider: Marizol Palacios MD HPI - Consult Narrative Narrative: Toya Harman is a pleasant, 75 year old lady with an extensive PMHX who presented from home due to abnormal labs. About a month ago, was diagnosed with covid infection at [facility]. She also had an acute PE for which she is on xarelto. Since was discharged from [facility], she has been having progressive symptoms of SOB which is worse with ambulation. She was seen by PCP and was found to have anemia. She was sent to the ED for further evaluation. Patient denies any chest pain, nausea, vomiting, blood in the stool or blood in the urine. Never had a colonoscopy done in the past. On presentation patient was found to have BP of 162/67 which improved to 133/50 mmHg, HR of 104, RR of 25. Lab review revealed: WBC of 14.5, Hgb of 5.9, platelet of 636, INR of 2.3, CXR showing bilateral airspace opacities concerning for possible covid infection vs resolving past infection. Covid test negative in the ED. Occult blood positive. She was given 2 units of PRBC. ROS: She does feel rather fatigued. Review of Systems - Constitutional Reports system reviewed and no additional complaints, except as documented, Reports fatigue, Reports lack of energy, Reports malaise, Reports weight loss, Denies fever(s), Denies headache(s) - Eyes Reports system reviewed and no additional complaints, except as documented, Reports blurry vision - ENT Reports system reviewed and no additional complaints, except as documented - Cardiovascular Reports system reviewed and no additional complaints, except as documented, Denies chest pain at rest - Respiratory Reports no additional respiratory complaints, Denies chest congestion - Gastrointestinal Reports system reviewed and no additional complaints, except as documented, Reports change in bowel habits, Reports dyspepsia, Denies abdominal pain, Denies constant urge to pass stool - Genitourinary Reports no additional female genitourinary complaints, Denies abnormal periods - Musculoskeletal Reports system reviewed and no additional complaints, except as documented, Denies abnormal walking, Denies back pain - Integumentary/Breasts Skin/Breast: Reports no additional skin complaints - Neurologic Reports system reviewed and no additional complaints, except as documented, Reports abnormal speech, Reports weakness - Psychiatric Reports system reviewed and no additional complaints, except as documented, Reports anxiety - Endocrine Reports no additional endocrine complaints, Denies excessive sweating - Hematologic/Lymphatic Reports system reviewed and no additional complaints, except as documented, Denies easy bruising - Allergic/Immunologic Reports system reviewed and no additional complaints, except as documented, Denies GI upset with certain foods PMFSH Medical History: Medical History (Last Reviewed 11/03/20 @ 23:56 by Francine Sebastian MD) Cataract Hypercholesterolemia Hypertension Obesity (BMI 30-39.9) Peripheral vascular disease Trigger finger of right hand Functional capacity: independent ambulation Patient : No Family History: Family History (Last Reviewed 11/03/20 @ 23:56 by Francine Sebastian MD) Father Prostate cancer Diabetes Mother Pneumonia Surgical History: Surgical History (Last Reviewed 11/06/20 @ 12:09 by Milagros Gutierrez) History of cataract surgery Social History: Social History (Last Reviewed 11/06/20 @ 12:09 by Milagros Gutierrez) Living Situation History: Household Members: Children Housing: House Tobacco History: Tobacco Type: Cigarette Second Hand Smoke Exposure: No Occupation Assessmet: service: No Smoking status: Former smoker Home Medications and Allergies Current Medications: Current Medications Generic Name Dose Route Start Last Admin Trade Name Freq PRN Reason Stop Dose Admin Amlodipine Besylate 5 mg 11/05/20 09:00 11/07/20 07:52 Amlodipine Besylate 5 Mg Tablet PO 5 mg DAILY TAM Administration Protocol Sodium Chloride 3 ml 11/04/20 01:04 11/07/20 07:49 0.9 % Sodium Chloride Flush 3 Ml Syringe IVFLUSH 3 ml QSHIFT TAM Administration Vitamin D 50 mcg 11/04/20 17:30 11/07/20 07:49 Cholecalciferol (Vitamin D3) 25 Mcg Tablet PO 50 mcg DAILY TAM Administration Home Medications Medication Instructions Recorded Confirmed Type cholecalciferol (vitamin D3) 50 50 mcg PO DAILY 08/10/20 11/04/20 History mcg (2,000 unit) capsule Allergies Allergy/AdvReac Type Severity Reaction Status Date / Time codeine [CODEINE] Allergy Intermediate TONGUE Verified 11/03/20 18:43 SWELLING Codeine Phosphate Allergy Unknown tongue Verified 11/03/20 18:43 swelling Physical Exam Vital signs: Vital Signs Temp 96.9 F 11/07/20 11:01 Pulse 98 11/07/20 11:01 Resp 20 11/07/20 11:01 BP 148/65 H 11/07/20 11:01 Pulse Ox 94 11/07/20 12:11 Intake & Output 11/06/20 11/07/20 11/07/20 18:59 06:59 18:59 Intake Total 50 / 850 800 / 850 Balance 50 / 850 800 / 850 Intake: Intake, Oral Amount 800 / 800 Intake, Other Amount 50 / 50 Other: IV Intake, Intraoperative 800 Amount NPO Yes Lunch % Eaten 0% Dinner % Eaten 100% Evening Snack % Eaten 100 Number of Unmeasured Voids 2 Urine Bathroom Bathroom Urine Color Yellow Last Bowel Movement 11/06/20 Weight 90.718 kg Weight 90.718 kg - Constitutional Present: no acute distress - Routine HEENT Exam Head: Present: normal inspection ENT: Present: mucous membranes moist - Routine Neck Exam Present: supple - Routine Respiratory Exam Present: CTAB - Routine Cardiovascular Exam Cardiovascular: Present: RRR, S1, S2 - Routine Abdominal Exam Present: normal bowel sounds, soft, nontender - Routine Skin Exam Present: intact - Routine Neurological Exam Present: alert, oriented X3 - Detailed Neurological Exam: Coma Scale Eye Opening: Spontaneous (4) Verbal Response: Oriented (5) Motor Response: Obeys commands (6) [place] Coma Scale Total: 15 - Routine Psychiatric Exam Present: normal affect Hem/Onc Consult Result - Labs CBC & Chem 7: 11/08/20 05:40 11/04/20 06:50 Labs: Short CBC 11/07/20 Range/Units 05:32 WBC 10.1 (4.8-10.8) X10*3/uL Hgb 7.7 L (12.0-16.0) g/dl Hct 25.9 L (37-47) % Plt Count 443 H (160-400) X10*3/uL Assessment and Plan (1) Anemia Status: Acute This is a pleasant 75-year-old lady who presented with easy fatigability. She is currently recovering from COVID 19 infection/pneumonitis. Hemoglobin on presentation was 5.9, hematocrit 19.8, MCV is normal at 89. Serial hemoglobin: 5.5/7.9/8.1/7.8/7.7. Iron studies: 264/to 82/94/37. Stool for guaiac is positive. She has been evaluated by GI. Undergoing EGD and colonoscopy. Differential diagnosis: 1. Iron deficiency anemia: Although no obvious bleeding, she does have guaiac-positive stools. GI evaluation is in progress. 2. Anemia of chronic disease/acute illness: This is likely, since she recently had COVID infection. 3. Hemolytic anemia: Is possible related to infection. LDH 211. 4. B12 folate deficiency: Is a possibility at her age. 5. Underlying myelo infiltrative disorder: MDS versus multiple myeloma versus lymphoma. PLAN: Will proceed with further evaluation. Check hemolytic screen:Retic 5.9, LDH 199. Check B12 1139 and folate levels 7.6. Check LDH and SIEP: WNL. Will make further plans based upon the results of above testing. If workup is non revealing, will proceed with a bone marrow exam for further evaluation. Meanwhile, can transfuse below hemoglobin of 8 or for symptoms. Thank you, CC:
[2020-11-07 13:48] LABS: Lactate Dehydrogenase 199 U/L (122-220)
[2020-11-07 14:13] LABS: Retic HGB Equivalent 23.3 pg (30.0-35.0); Reticulocyte Percent 5.9 % (0.5-1.8)
[2020-11-07 14:26] LABS: Folate 7.6 ng/mL (> or = 4.0); Vitamin B12 1139 pg/mL (200-900)
--- NOTE | 2020-11-07 16:19 | HO.PM.IMPN ---
Subjective Subjective Date of Service: 11/08/20 Interval History: Patient offers no acute complaints, denies chest pain, no lightheadedness dizziness, no hematemesis or melena. ROS General no headache, no dizziness , no fever chills. CVS no chest pain, no palpitation. Respiratory no cough, no shortness of breath Gastrointestinal no nausea, no vomiting, no abdominal pain, no melena Physical Exam Vital Signs: Vital Signs: Last Vital Signs Temp 98.8 F 11/07/20 15:14 Pulse 105 H 11/07/20 15:14 Resp 20 11/07/20 15:14 BP 132/61 11/07/20 15:14 Pulse Ox 85 L 11/07/20 15:14 Body Mass Index 33.3 General patient resting comfortably in no acute distress. Neck is supple no JVD. CVS regular rate rhythm, Respiratory lungs clear to auscultation, no respiratory distress Gastrointestinal abdomen soft, nontender, bowel sounds audible, no guarding , no rigidity. Extremities bilateral pitting edema improving. Neuro nonfocal Skin no rash Objective Data Current Medications Generic Name Dose Route Start Last Admin Trade Name Freq PRN Reason Stop Dose Admin Amlodipine Besylate 5 mg 11/05/20 09:00 11/07/20 07:52 Amlodipine Besylate 5 Mg Tablet PO 5 mg DAILY [facility] Administration Protocol Sodium Chloride 3 ml 11/04/20 01:04 11/07/20 07:49 0.9 % Sodium Chloride Flush 3 Ml Syringe IVFLUSH 3 ml QSHIFT TAM Administration Vitamin D 50 mcg 11/04/20 17:30 11/07/20 07:49 Cholecalciferol (Vitamin D3) 25 Mcg Tablet PO 50 mcg DAILY TAM Administration Labs CBC & Chem 7: 11/08/20 05:40 11/04/20 06:50 Microbiology Microbiology Results: Microbiology 11/04/20 02:07 Blood - Venous Blood Culture - Preliminary No growth after 48 hours. 11/04/20 02:07 Blood - Venous Blood Culture - Preliminary No growth after 48 hours. Assessment and Plan (1) Severe anemia: Problem details: Etiology , unknown at this time , Not explained by any occult G.I. bleeding Status: Acute (2) Pulmonary embolism: Problem details: 10/04/2020 Status: Acute (3) Hypertension: Problem details: 2016 high BP Status: Acute (4) Pneumonia due to COVID-19 virus: Problem details: September 16, 2020, resolved , except for some residual pneumonitis/fibrotic changes at [employer] Status: Acute Assessment and Plan: Acute anemia no active GI bleed noted Hgb of 5.9 and hematocrit 19.8 on admission, status post 2 units packed RBC hematocrit improved now 25.9, hemoglobin 7.7 hemolysis workup including LDH haptoglobin and retic count all within normal range, iron studies within normal range, stool guaiac positive No history of melena, no history of hematemesis, patient provided history of heartburn while she was on dexamethasone and Xarelto at [facility]. Status upper endoscopy and colonoscopy by Dr. Pena that showed duodenitis, mild esophagitis, internal hemorrhoids but no acute source of bleed noted, GI cleared to resume [facility] Consulted hematology patient seen by Dr. Hong she ordered SIEP, B12 folate and recommend to transfuse to keep hemoglobin greater than 8, since patient is asymptomatic with no lightheadedness dizziness worsening shortness of breath or chest pain will hold off on blood transfusion and follow CBC History of recent COVID infection and abnormal chest x-ray due to COVID Pneumonia No sepsis, tachycardia on admission likely due to anemia, leukocytosis likely due to recent use of steroid that is trending down Patient asymptomatic with no cough no fever therefore antibiotic discontinued Patient is on 2 L of oxygen at home that will be continued Recent history of pulmonary embolism diagnosed in the beginning of October at [facility] Xarelto on hold due to profound anemia, continue to hold anticoagulation for now being followed by Hematology and Pulmonary appreciate pulmonary input. hypertension BP stable, continue amlodipine DVT prophylaxis Venodyne given anemia
[2020-11-08 03:37] VITALS: BP 125/65; PULSE 95; RESP 18; TEMP 36.4; O2SAT 95
[2020-11-08] MEDS: Omeprazole 20 MG CAPSULE.DR PO (06:13)
[2020-11-08 06:42] LABS: MANUAL DIFF FLAG NO
[2020-11-08 06:51] LABS: Basophils Percent Auto 0.4 % (0-2); Eosinophils Absolute Auto 0.2 X10*3/uL (0.0-0.4); Eosinophils Percent Auto 2.3 % (0-4); Hematocrit 26.7 % (37-47); Hemoglobin 8.1 g/dl (12.0-16.0); Imm Gran Abs Auto 0.06 X10*3/uL (0.00-0.03); Imm Gran Pct Auto 0.6 % (0.0-0.4); Lymphocytes Absolute Auto 2.3 X10*3/uL (1.2-4.9); Lymphocytes Percent Auto 21.6 % (20-40); Mean Corpuscular HGB Conc 30.3 g/dl (31.0-35.0); Mean Corpuscular Hemoglobin 27.9 pg (27.0-33.0); Mean Corpuscular Volume 92.1 fL (80-98); Mean Platelet Volume 10.1 fL (9.4-12.3); Monocytes Absolute Auto 0.9 X10*3/uL (0.1-1.2); Monocytes Percent Auto 8.7 % (2-11); Neutrophils Percent Auto 66.4 % (45-73); Platelet Count 446 X10*3/uL (160-400); Red Cell Distribution Width 16.6 % (11.0-16.0); White Blood Count 10.5 X10*3/uL (4.8-10.8)
[2020-11-08 07:15] VITALS: BP 152/66; PULSE 88; RESP 20; TEMP 36.4; O2SAT 96
[2020-11-08 07:37] LABS: Haptoglobin 296 mg/dL (43-212)
[2020-11-08] MEDS: Cholecalciferol (Vitamin D3) 25 MCG TABLET 50 MCG PO (08:41)
[2020-11-08] MEDS: 0.9 % Sodium Chloride Flush 3 ML SYRINGE IVFLUSH ×2 (08:41→15:32)
[2020-11-08] MEDS: amLODIPine Besylate 5 MG TABLET PO (08:42)
[2020-11-08 11:09] VITALS: BP 140/63; PULSE 90; RESP 20; TEMP 36.1; O2SAT 97
--- NOTE | 2020-11-08 13:14 | MHC.CM.PN ---
home no services
--- NOTE | 2020-11-08 13:16 | PM.DS ---
DS: Providers Provider Date of Service: 11/08/20 Date of admission: 11/03/20 23:27 Primary care physician: Marizol Palacios MD Consults: 11/04/20 01:04 Consult to Pulmonology Routine Consulting Provider: [facility] Pulmonology Services Reason for consultation: Hx of PE, anticoagulation contraindicated at present Has provider been notified: No 11/07/20 08:16 Consult to Hematology / Oncology Routine Consulting Provider: Lin Hong Reason for consultation: profound anemia no gi source found on eliquis DS: Diagnosis Discharge Diagnosis (1) Severe anemia: Status: Acute Problem details: Etiology , unknown at this time , Not explained by any occult G.I. bleeding (2) Pulmonary embolism: Status: Acute Problem details: 10/04/2020 (3) Hypertension: Status: Acute Problem details: 2016 high BP (4) Pneumonia due to COVID-19 virus: Status: Acute Problem details: September 16, 2020, resolved , except for some residual pneumonitis/fibrotic changes at [employer] [place] DS: Medications Discharge Medications Home Medications: Home Medications Medication Instructions Recorded Confirmed cholecalciferol (vitamin D3) 50 50 mcg PO DAILY 08/10/20 11/04/20 mcg (2,000 unit) capsule Previous Rx's Medication Instructions Recorded amlodipine 5 mg tablet 5 mg PO DAILY #30 tab 09/25/20 oxygen #1 ea 10/16/20 furosemide 20 mg tablet 20 mg PO DAILY #30 tab 10/24/20 apixaban [Eliquis] 5 mg PO BID #60 tab 11/08/20 omeprazole 20 mg PO DAILY@0630 #30 cap 11/08/20 DS: Summary Hospital Course Hospital Course: Chief Complaint: SOB 75 y/o female with an extensive PMHX who presented from home due to abnormal labs. Per history provided by the patient, 1 month ago was diagnosed with covid infection at [facility] and acute PE which has been treated with xarelto. Per patient, since was discharged from that facility has been having progressive symptoms of SOB which is worse with ambulation. Today was evaluated by PCP and after Bloodwork was done was found to have anemia for what was sent to the ED for further evaluation. Patient denies any chest pain, nausea, vomiting, blood in the stool or blood in the urine. Never had a colonoscopy done in the past. On presentation patient was found to have BP of 162/67 which improved to 133/50 mmHg, HR of 104, RR of 25, WBC of 14.5, Hgb of 5.9, platelet of 636, INR of 2.3, CXR showing bilateral airspace opacities concerning for possible covid infection vs resolving past infection. Covid test negative in the ED. Occult blood positive. 2 units of PRBC ordered per ED attending and decision for admission given. Patient seen and examined at the bedside, laying down in bed in no acute distress. ROS as above otherwise negative. Physical exam unremarkable. Hospital course Profound symptomatic anemia Patient presented to [facility] due to shortness of breath and diagnosed to have Acute anemia, she denied active GI bleed had Hgb of 5.9 and hematocrit 19.8 on admission, status post 2 units packed RBC hematocrit improved and remained stable around 26,hemolysis workup including LDH haptoglobin and retic count all within normal range, iron studies within normal range, B12 and folate are normal, stool guaiac positive patient underwent upper endoscopy and colonoscopy by Dr. Dan that showed duodenitis, mild esophagitis, internal hemorrhoids but no acute source of bleed noted, GI cleared to resume Eliquis, patient seen by insights strategist Dr. Hong she ordered further testing including SIEP, results are pending since patient has no active source of bleed and is not noted to have GI bleed gastroenterology and Hematology recommend to start anticoagulation therefore patient is being discharged on Eliquis 5 mg b.i.d. she has been recommended to return to hospital with any active GI bleed lightheadedness dizziness or shortness of breath History of recent COVID infection and abnormal chest x-ray due to COVID Pneumonia, patient on admission at tachycardia likely due to anemia and leukocytosis was likely due to steroid use there is no evidence of sepsis patient remained asymptomatic with no fever, no cough, she is on home oxygen 2 L that will be continued upon discharge Recent history of pulmonary embolism diagnosed in the beginning of October at [facility] patient being discharged on Eliquis 5 mg b.i.d. hypertension BP stable, continue amlodipine and Lasix Time Spent with Patient Time attestation: Total time spent providing and/or coordinating discharge services: Discharge coordination time: Greater than 30 minutes Physical Exam Vital Signs: Vital Signs: Last Vital Signs Temp 97 F 11/08/20 11:09 Pulse 90 11/08/20 11:09 Resp 20 11/08/20 11:09 BP 140/63 H 11/08/20 11:09 Pulse Ox 97 11/08/20 11:09 Body Mass Index 33.3 General patient resting comfortably in no acute distress. Neck is supple no JVD. CVS regular rate rhythm, Respiratory lungs clear to auscultation, no respiratory distress Gastrointestinal abdomen soft, nontender, bowel sounds audible, no guarding , no rigidity. Extremities bilateral pitting edema improving. Neuro nonfocal Skin no rash DS: Data Data Completed and Pending Completed studies during hospitalization [Text1]: Pending at discharge 11/06/20 12:48 Surgical [PTH] Routine Labs on day of discharge: Laboratory Tests 11/03/20 11/03/20 11/03/20 20:32 20:48 20:48 WBC 14.5 H RBC 2.20 L Hgb 5.9 L* Hct 19.8 L* MCV 90.0 MCH 26.8 L MCHC 29.8 L RDW 16.6 H Plt Count 636 H MPV 9.9 Immature Gran % (Auto) Neut % (Auto) Lymph % (Auto) [place] % (Auto) Eos % (Auto) Baso % (Auto) Lymph # (Auto) [place] # (Auto) Eos # (Auto) Baso # (Auto) Abs Immat Gran (auto) Absolute Neuts (auto) Absolute Nucleated RBC 0.120 H Nucleated RBC % (auto) 0.8 H Neutrophils % (Manual) 76 H Band Neutrophils % 2 L Lymphocytes % (Manual) 13 L Atypical Lymphs % (Man) 2 Monocytes % (Manual) 4 Eosinophils % (Manual) 3 Abs Neuts (Manual) 11.3 H Lymphocytes # (Manual) 1.9 Atyp Lymphs # (Manual) 0.3 Monocytes # (Manual) 0.6 Eosinophils # (Manual) 0.4 Nucleated RBCs 1 H Platelet Estimate SLIGHTLY INCREASED Plt Morphology Comment NORMAL RBC Morphology NOTED Polychromasia 1+ Hypochromasia 2+ Tear Drop Cells 1+ Smear Tech's Comments Smear Path Review SEE NOTE Absolute Retic Percent Retic Immature Retic Fraction Retic Hgb Equivalent Haptoglobin Hold Purple Top SEE NOTE PT INR APTT Sodium Potassium Chloride Carbon Dioxide Anion Gap BUN Creatinine Estim Creat Clear Calc Estimated GFR Random Glucose Lactic Acid Calcium Iron TIBC % Saturation Unsat Iron Binding Ferritin Total Bilirubin Direct Bilirubin AST ALT Alkaline Phosphatase Lactate Dehydrogenase B-Natriuretic Peptide Total Protein Albumin Vitamin B12 Folate Stool Occult Blood POS COVID-19 ([facility]) COVID-19 [facility] Com Blood Type Antibody Screen Crossmatch 11/03/20 11/03/20 11/03/20 20:48 20:48 20:48 WBC RBC Hgb Hct MCV MCH MCHC RDW Plt Count MPV Immature Gran % (Auto) Neut % (Auto) Lymph % (Auto) [place] % (Auto) Eos % (Auto) Baso % (Auto) Lymph # (Auto) [place] # (Auto) Eos # (Auto) Baso # (Auto) Abs Immat Gran (auto) Absolute Neuts (auto) Absolute Nucleated RBC Nucleated RBC % (auto) Neutrophils % (Manual) Band Neutrophils % Lymphocytes % (Manual) Atypical Lymphs % (Man) Monocytes % (Manual) Eosinophils % (Manual) Abs Neuts (Manual) Lymphocytes # (Manual) Atyp Lymphs # (Manual) Monocytes # (Manual) Eosinophils # (Manual) Nucleated RBCs Platelet Estimate Plt Morphology Comment RBC Morphology Polychromasia Hypochromasia Tear Drop Cells Smear Tech's Comments Smear Path Review Absolute Retic Percent Retic Immature Retic Fraction Retic Hgb Equivalent Haptoglobin Hold Purple Top PT 27.0 H INR 2.3 H APTT 43.9 H Sodium 141 Potassium 4.3 Chloride 99 Carbon Dioxide 31 H Anion Gap 15 BUN 15 Creatinine 0.96 Estim Creat Clear Calc 57.2 Estimated GFR 57 Random Glucose 128 H Lactic Acid Calcium 8.4 Iron TIBC % Saturation Unsat Iron Binding Ferritin Total Bilirubin 0.5 Direct Bilirubin 0.2 AST 12 ALT 8 Alkaline Phosphatase 118 H Lactate Dehydrogenase B-Natriuretic Peptide 38 Total Protein 6.4 L Albumin 3.2 L Vitamin B12 Folate Stool Occult Blood COVID-19 ([place]) COVID-19 [facility] Com Blood Type Antibody Screen Crossmatch 11/03/20 11/03/20 11/04/20 20:49 22:18 00:30 WBC RBC Hgb Hct MCV MCH MCHC RDW Plt Count MPV Immature Gran % (Auto) Neut % (Auto) Lymph % (Auto) [place] % (Auto) Eos % (Auto) Baso % (Auto) Lymph # (Auto) [place] # (Auto) Eos # (Auto) Baso # (Auto) Abs Immat Gran (auto) Absolute Neuts (auto) Absolute Nucleated RBC Nucleated RBC % (auto) Neutrophils % (Manual) Band Neutrophils % Lymphocytes % (Manual) Atypical Lymphs % (Man) Monocytes % (Manual) Eosinophils % (Manual) Abs Neuts (Manual) Lymphocytes # (Manual) Atyp Lymphs # (Manual) Monocytes # (Manual) Eosinophils # (Manual) Nucleated RBCs Platelet Estimate Plt Morphology Comment RBC Morphology Polychromasia Hypochromasia Tear Drop Cells Smear Tech's Comments Smear Path Review Absolute Retic Percent Retic Immature Retic Fraction Retic Hgb Equivalent Haptoglobin Hold Purple Top PT INR APTT Sodium Potassium Chloride Carbon Dioxide Anion Gap BUN Creatinine Estim Creat Clear Calc Estimated GFR Random Glucose Lactic Acid 0.8 Calcium Iron TIBC % Saturation Unsat Iron Binding Ferritin Total Bilirubin Direct Bilirubin AST ALT Alkaline Phosphatase Lactate Dehydrogenase B-Natriuretic Peptide Total Protein Albumin Vitamin B12 Folate Stool Occult Blood COVID-19 ([place]) Negative COVID-19 Clin Com See Note Blood Type A Positive Antibody Screen NEGATIVE Crossmatch See Detail 11/04/20 11/04/20 11/04/20 03:32 06:50 06:50 WBC 12.4 H 12.8 H RBC 2.82 L D 2.92 L Hgb 7.9 L D 8.1 L Hct 25.3 L D 26.0 L MCV 89.7 89.0 MCH 28.0 27.7 MCHC 31.2 31.2 RDW 16.2 H 16.0 Plt Count 501 H 562 H MPV 9.2 L 9.6 Immature Gran % (Auto) 1.4 H 1.4 H Neut % (Auto) 67.4 71.2 Lymph % (Auto) 20.2 17.7 L [place] % (Auto) 8.5 7.4 Eos % (Auto) 2.3 2.0 Baso % (Auto) 0.2 0.3 Lymph # (Auto) 2.5 2.3 [place] # (Auto) 1.1 1.0 Eos # (Auto) 0.3 0.3 Baso # (Auto) 0.0 0.0 Abs Immat Gran (auto) 0.17 H 0.18 H Absolute Neuts (auto) 8.3 9.1 H Absolute Nucleated RBC 0.150 H 0.170 H Nucleated RBC % (auto) 1.2 H 1.3 H Neutrophils % (Manual) Band Neutrophils % Lymphocytes % (Manual) Atypical Lymphs % (Man) Monocytes % (Manual) Eosinophils % (Manual) Abs Neuts (Manual) Lymphocytes # (Manual) Atyp Lymphs # (Manual) Monocytes # (Manual) Eosinophils # (Manual) Nucleated RBCs Platelet Estimate Plt Morphology Comment RBC Morphology Polychromasia Hypochromasia Tear Drop Cells Smear Tech's Comments VERIFIED Smear Path Review Absolute Retic 0.131 H Percent Retic 4.5 H Immature Retic Fraction 39.7 H Retic Hgb Equivalent 21.1 L Haptoglobin Hold Purple Top PT INR APTT Sodium 140 Potassium 4.2 Chloride 100 Carbon Dioxide 32 H Anion Gap 12 BUN 13 Creatinine 0.80 Estim Creat Clear Calc 68.6 Estimated GFR > 60 Random Glucose 114 Lactic Acid Calcium 7.8 L D Iron 264 H TIBC 282 % Saturation 94 H Unsat Iron Binding 18 Ferritin 37 Total Bilirubin Direct Bilirubin AST ALT Alkaline Phosphatase Lactate Dehydrogenase B-Natriuretic Peptide Total Protein Albumin Vitamin B12 Folate Stool Occult Blood COVID-19 ([facility]) COVID-19 Clin Com Blood Type Antibody Screen Crossmatch 11/05/20 11/05/20 11/05/20 13:23 13:23 13:23 WBC RBC Hgb Hct MCV MCH MCHC RDW Plt Count MPV Immature Gran % (Auto) Neut % (Auto) Lymph % (Auto) [place] % (Auto) Eos % (Auto) Baso % (Auto) Lymph # (Auto) [place] # (Auto) Eos # (Auto) Baso # (Auto) Abs Immat Gran (auto) Absolute Neuts (auto) Absolute Nucleated RBC Nucleated RBC % (auto) Neutrophils % (Manual) Band Neutrophils % Lymphocytes % (Manual) Atypical Lymphs % (Man) Monocytes % (Manual) Eosinophils % (Manual) Abs Neuts (Manual) Lymphocytes # (Manual) Atyp Lymphs # (Manual) Monocytes # (Manual) Eosinophils # (Manual) Nucleated RBCs Platelet Estimate Plt Morphology Comment RBC Morphology Polychromasia Hypochromasia Tear Drop Cells Smear Tech's Comments Smear Path Review Absolute Retic 0.147 H Percent Retic 5.3 H Immature Retic Fraction 40.2 H Retic Hgb Equivalent 19.5 L Haptoglobin 296 H Hold Purple Top PT 15.5 H D INR 1.3 H APTT Sodium Potassium Chloride Carbon Dioxide Anion Gap BUN Creatinine Estim Creat Clear Calc Estimated GFR Random Glucose Lactic Acid Calcium Iron TIBC % Saturation Unsat Iron Binding Ferritin Total Bilirubin Direct Bilirubin AST ALT Alkaline Phosphatase Lactate Dehydrogenase B-Natriuretic Peptide Total Protein Albumin Vitamin B12 Folate Stool Occult Blood COVID-19 ([facility]) COVID-19 Clin Com Blood Type Antibody Screen Crossmatch 11/05/20 11/06/20 11/07/20 13:24 05:23 05:32 WBC 12.3 H 10.1 RBC 2.82 L 2.80 L Hgb 7.8 L 7.7 L Hct 25.5 L 25.9 L MCV 90.4 92.5 MCH 27.7 27.5 MCHC 30.6 L 29.7 L RDW 16.5 H 17.1 H Plt Count 490 H 443 H MPV 10.1 10.0 Immature Gran % (Auto) 0.8 H 0.5 H Neut % (Auto) 69.9 71.0 Lymph % (Auto) 19.4 L 17.0 L [place] % (Auto) 8.0 9.1 Eos % (Auto) 1.7 2.0 Baso % (Auto) 0.2 0.4 Lymph # (Auto) 2.4 1.7 [place] # (Auto) 1.0 0.9 Eos # (Auto) 0.2 0.2 Baso # (Auto) 0.0 0.0 Abs Immat Gran (auto) 0.10 H 0.05 H Absolute Neuts (auto) 8.6 H 7.2 Absolute Nucleated RBC 0.020 H 0.000 Nucleated RBC % (auto) 0.2 0.0 Neutrophils % (Manual) Band Neutrophils % Lymphocytes % (Manual) Atypical Lymphs % (Man) Monocytes % (Manual) Eosinophils % (Manual) Abs Neuts (Manual) Lymphocytes # (Manual) Atyp Lymphs # (Manual) Monocytes # (Manual) Eosinophils # (Manual) Nucleated RBCs Platelet Estimate Plt Morphology Comment RBC Morphology Polychromasia Hypochromasia Tear Drop Cells Smear Tech's Comments Smear Path Review Absolute Retic Percent Retic Immature Retic Fraction Retic Hgb Equivalent Haptoglobin Hold Purple Top PT INR APTT Sodium Potassium Chloride Carbon Dioxide Anion Gap BUN Creatinine Estim Creat Clear Calc Estimated GFR Random Glucose Lactic Acid Calcium Iron TIBC % Saturation Unsat Iron Binding Ferritin Total Bilirubin Direct Bilirubin AST ALT Alkaline Phosphatase Lactate Dehydrogenase 211 B-Natriuretic Peptide Total Protein Albumin Vitamin B12 Folate Stool Occult Blood COVID-19 ([facility]) COVID-19 Clin Com Blood Type Antibody Screen Crossmatch 11/07/20 11/07/20 11/07/20 13:19 13:19 13:20 WBC RBC Hgb Hct MCV MCH MCHC RDW Plt Count MPV Immature Gran % (Auto) Neut % (Auto) Lymph % (Auto) [place] % (Auto) Eos % (Auto) Baso % (Auto) Lymph # (Auto) [place] # (Auto) Eos # (Auto) Baso # (Auto) Abs Immat Gran (auto) Absolute Neuts (auto) Absolute Nucleated RBC Nucleated RBC % (auto) Neutrophils % (Manual) Band Neutrophils % Lymphocytes % (Manual) Atypical Lymphs % (Man) Monocytes % (Manual) Eosinophils % (Manual) Abs Neuts (Manual) Lymphocytes # (Manual) Atyp Lymphs # (Manual) Monocytes # (Manual) Eosinophils # (Manual) Nucleated RBCs Platelet Estimate Plt Morphology Comment RBC Morphology Polychromasia Hypochromasia Tear Drop Cells Smear Tech's Comments Smear Path Review Absolute Retic 0.170 H Percent Retic 5.9 H Immature Retic Fraction 27.0 H Retic Hgb Equivalent 23.3 L Haptoglobin Hold Purple Top PT INR APTT Sodium Potassium Chloride Carbon Dioxide Anion Gap BUN Creatinine Estim Creat Clear Calc Estimated GFR Random Glucose Lactic Acid Calcium Iron TIBC % Saturation Unsat Iron Binding Ferritin Total Bilirubin Direct Bilirubin AST ALT Alkaline Phosphatase Lactate Dehydrogenase 199 B-Natriuretic Peptide Total Protein Albumin Vitamin B12 1139 H Folate 7.6 Stool Occult Blood COVID-19 ([facility]) COVID-19 Clin Com Blood Type Antibody Screen Crossmatch 11/08/20 05:40 WBC 10.5 RBC 2.90 L Hgb 8.1 L Hct 26.7 L MCV 92.1 MCH 27.9 MCHC 30.3 L RDW 16.6 H Plt Count 446 H MPV 10.1 Immature Gran % (Auto) 0.6 H Neut % (Auto) 66.4 Lymph % (Auto) 21.6 [place] % (Auto) 8.7 Eos % (Auto) 2.3 Baso % (Auto) 0.4 Lymph # (Auto) 2.3 [place] # (Auto) 0.9 Eos # (Auto) 0.2 Baso # (Auto) 0.0 Abs Immat Gran (auto) 0.06 H Absolute Neuts (auto) 7.0 Absolute Nucleated RBC 0.000 Nucleated RBC % (auto) 0.0 Neutrophils % (Manual) Band Neutrophils % Lymphocytes % (Manual) Atypical Lymphs % (Man) Monocytes % (Manual) Eosinophils % (Manual) Abs Neuts (Manual) Lymphocytes # (Manual) Atyp Lymphs # (Manual) Monocytes # (Manual) Eosinophils # (Manual) Nucleated RBCs Platelet Estimate Plt Morphology Comment RBC Morphology Polychromasia Hypochromasia Tear Drop Cells Smear Tech's Comments Smear Path Review Absolute Retic Percent Retic Immature Retic Fraction Retic Hgb Equivalent Haptoglobin Hold Purple Top PT INR APTT Sodium Potassium Chloride Carbon Dioxide Anion Gap BUN Creatinine Estim Creat Clear Calc Estimated GFR Random Glucose Lactic Acid Calcium Iron TIBC % Saturation Unsat Iron Binding Ferritin Total Bilirubin Direct Bilirubin AST ALT Alkaline Phosphatase Lactate Dehydrogenase B-Natriuretic Peptide Total Protein Albumin Vitamin B12 Folate Stool Occult Blood COVID-19 ([place]) COVID-19 Clin Com Blood Type Antibody Screen Crossmatch Preliminary micro results at discharge 11/04/20 02:07 Blood Culture - Preliminary Blood - Venous No growth after 48 hours. 11/04/20 02:07 Blood Culture - Preliminary Blood - Venous No growth after 48 hours. Discharge Plan Discharge Patient Disposition: Home, Self-Care Referrals: Po,Marizol Mon MD [Primary Care Provider] - Discharge Medications: New Eliquis 5 mg tablet 5 mg PO BID Qty: 60 RF: 0 omeprazole 20 mg Capsule,Delayed Release(Dr/Ec) 20 mg PO DAILY@0630 Qty: 30 RF: 0 Continued amlodipine 5 mg tablet 5 mg PO DAILY Qty: 30 RF: 2 furosemide [Lasix] 20 mg tablet 20 mg PO DAILY Qty: 30 RF: 0 cholecalciferol (vitamin D3) 50 mcg (2,000 unit) capsule 50 mcg PO DAILY RF: 0 (DME) oxygen 2 L NC keep sats > 90 See Rx Instructions .Route .MEDSUPPLY Qty: 1 RF: 0 Discontinued Xarelto 15 mg tablet 1 tab PO BID RF: 0 Xarelto 20 mg tablet 20 mg PO DAILY RF: 0 Discharge Orders: Discharge Order (Routine); Ordered 11/08/20 Ordered By: Nicki Montgomery Diet: advance to usual diet Activity on Discharge: As tolerated Stand Alone Forms: Patient Portal Discharge page Visit Report Forms: Patient Portal Discharge page Care Plan Goals: Take Eliquis 5 mg twice daily return to check with any bleeding, lightheadedness,dizziness or shortness of breath Health Concerns: Anemia/pulmonary embolus Plan of Treatment: Follow-up with primary care physician and Dr. Hong from Hematology in next 1-2 weeks Patient Instructions: Hemorrhoids (DC), Diverticulosis (DC), High Fiber Diet (DC)
[2020-11-08 13:57] LABS: IgA 455 mg/dL (70-320); IgG 1171 mg/dL (600-1540); IgM 29 mg/dL (50-300)
[2020-11-08 15:30] VITALS: BP 154/68; PULSE 89; RESP 20; TEMP 36.2; O2SAT 98
== END 2020-11-08 15:55 | disposition home or self-care (01) | DRG 812 ==
LOC: HO.ED 21:51 → HO.EDOVER 23:55 → HO.IMC 11-04 15:35
PROVIDERS: Internal Medicine Gastroenterology; Internal Medicine Medical Oncology; Admitting Provider Internal Medicine; Emergency Provider Internal Medicine; PCP Internal Medicine; Visit Provider Hospitalist
PROC: 0DB98ZX Excision of Duodenum, Via Natural or Artificial Opening Endoscopic, Diagnostic (ICD-10-PCS; principal; 2020-11-06 12:10)
DX: D64.9 Anemia, unspecified (principal); K29.80 Duodenitis without bleeding; J84.10 Pulmonary fibrosis, unspecified; K64.8 Other hemorrhoids; K20.90 Esophagitis, unspecified without bleeding; Z20.822 Contact with and (suspected) exposure to COVID-19; Z86.711 Personal history of pulmonary embolism; Z86.16 Personal history of COVID-19; Z88.5 Allergy status to narcotic agent; Z79.01 Long term (current) use of anticoagulants; Z79.899 Other long term (current) drug therapy
CPT/HCPCS: 36415; 36430; 71045; 80048; 80076; 82272; 82607; 82728; 82746; 82784; 83010; 83540; 83605; 83615; 83880; 85007; 85025; 85027; 85045; 85060; 85610; 85730; 86334; 86850; 86900; 86901; 86923; 87040; 87635; 88305; 88342; 96374; 99285; J0696; J1650; P9016

== ENCOUNTER 2020-11-15 12:34 | Outpatient (REF) | payer MEDICARE, SELFPAY ==
[2020-11-15 14:05] LABS: Imm Gran Abs Auto 0.05 X10*3/uL (0.00-0.03); Imm Gran Pct Auto 0.4 % (0.0-0.4); MANUAL DIFF FLAG SCAN; Monocytes Absolute Auto 0.9 X10*3/uL (0.1-1.2); SCAN SMEAR FLAG 1
[2020-11-15 14:07] LABS: Basophils Absolute Auto 0.1 X10*3/uL (0.0-0.2); Basophils Percent Auto 0.6 % (0-2); Eosinophils Absolute Auto 0.3 X10*3/uL (0.0-0.4); Eosinophils Percent Auto 2.2 % (0-4); Hematocrit 28.4 % (37-47); Hemoglobin 8.3 g/dl (12.0-16.0); Lymphocytes Absolute Auto 2.6 X10*3/uL (1.2-4.9); Lymphocytes Percent Auto 21.4 % (20-40); Mean Corpuscular HGB Conc 29.2 g/dl (31.0-35.0); Mean Corpuscular Hemoglobin 26.1 pg (27.0-33.0); Mean Corpuscular Volume 89.3 fL (80-98); Mean Platelet Volume 10.4 fL (9.4-12.3); Monocytes Percent Auto 7.5 % (2-11); Neutrophils Absolute Auto 8.1 X10*3/uL (2.0-8.3); Neutrophils Percent Auto 67.9 % (45-73); Platelet Count 501 X10*3/uL (160-400); Red Blood Count 3.18 X10*6/uL (4.20-5.50); Red Cell Distribution Width 16.3 % (11.0-16.0)
[2020-11-15 14:24] LABS: Reticulocytes Absolute 0.103 X10*6/uL (0.026-0.095)
[2020-11-15 14:25] LABS: Immature Retic Fraction 24.4 % (3.0-15.9); Retic HGB Equivalent 23.6 pg (30.0-35.0); Reticulocyte Percent 3.3 % (0.5-1.8)
[2020-11-15 14:29] LABS: SLIDE REVIEW VERIFIED
[2020-11-15 14:32] LABS: Iron 30 mcg/dL (30-160); Percent Iron Saturation 9 % (15-50); Total Iron Binding Capacity 338 mcg/dL (228-428); Unsaturated Iron Binding 308 ug/dL
[2020-11-15 14:41] LABS: Ferritin 51 ng/mL (10-250)
[2020-11-15 14:57] LABS: Folate 10.8 ng/mL (> or = 4.0); Vitamin B12 592 pg/mL (200-900)
== END 2020-11-15 12:35 | disposition home or self-care (01) ==
LOC: HO.HMGCLDS 12:34
PROVIDERS: PCP Internal Medicine; Visit Provider Internal Medicine
DX: D64.9 Anemia, unspecified (principal)
CPT/HCPCS: 36415; 82607; 82728; 82746; 83540; 85025; 85045

== ENCOUNTER 2020-11-28 14:14 | Outpatient (REF) | payer MEDICARE, SELFPAY ==
[2020-11-28 16:34] LABS: Eosinophils Absolute Auto 0.5 X10*3/uL (0.0-0.4); Hemoglobin 8.5 g/dl (12.0-16.0); Imm Gran Abs Auto 0.05 X10*3/uL (0.00-0.03); Imm Gran Pct Auto 0.4 % (0.0-0.4); MANUAL DIFF FLAG SCAN; Reticulocyte Percent 4.1 % (0.5-1.8); SCAN SMEAR FLAG 1
[2020-11-28 16:36] LABS: Basophils Absolute Auto 0.1 X10*3/uL (0.0-0.2); Basophils Percent Auto 0.6 % (0-2); Eosinophils Percent Auto 3.8 % (0-4); Hematocrit 28.5 % (37-47); Immature Retic Fraction 29.9 % (3.0-15.9); Lymphocytes Absolute Auto 2.6 X10*3/uL (1.2-4.9); Lymphocytes Percent Auto 20.4 % (20-40); Mean Corpuscular HGB Conc 29.8 g/dl (31.0-35.0); Mean Corpuscular Hemoglobin 27.1 pg (27.0-33.0); Mean Corpuscular Volume 90.8 fL (80-98); Mean Platelet Volume 10.9 fL (9.4-12.3); Monocytes Absolute Auto 0.8 X10*3/uL (0.1-1.2); Monocytes Percent Auto 6.3 % (2-11); Neutrophils Absolute Auto 8.6 X10*3/uL (2.0-8.3); Neutrophils Percent Auto 68.5 % (45-73); Platelet Count 440 X10*3/uL (160-400); Red Blood Count 3.14 X10*6/uL (4.20-5.50); Red Cell Distribution Width 19.1 % (11.0-16.0); Retic HGB Equivalent 31.1 pg (30.0-35.0); Reticulocytes Absolute 0.128 X10*6/uL (0.026-0.095); White Blood Count 12.5 X10*3/uL (4.8-10.8)
[2020-11-28 16:57] LABS: SLIDE REVIEW VERIFIED
[2020-11-28 17:02] LABS: Alanine Aminotransferase 11 U/L (0-31); Albumin Level 3.7 g/dL (3.5-5.0); Alkaline Phosphatase 85 U/L (39-117); Anion Gap 15 (12-20); Aspartate Amino Transferase 14 U/L (5-31); Bilirubin Total 0.2 mg/dL (0.0-1.0); Blood Urea Nitrogen 19 mg/dL (9-16); Carbon Dioxide 30 mmol/L (22-29); Chloride 100 mmol/L (96-108); Estimated Glomerular Filt Rate > 60; Glucose Random 150 mg/dL (60-115); Iron 34 mcg/dL (30-160); Percent Iron Saturation 10 % (15-50); Potassium 3.9 mmol/L (3.3-5.1); Sodium 141 mmol/L (135-145); Total Iron Binding Capacity 352 mcg/dL (228-428); Total Protein 7.2 g/dL (6.5-8.0); Unsaturated Iron Binding 318 ug/dL
[2020-11-28 17:11] LABS: B Type Natriuretic Peptide 36 pg/mL (<100)
[2020-11-28 17:24] LABS: Ferritin 31 ng/mL (10-250); Thyroid Stimulating Hormone 4.21 uIU/mL (0.32-4.0)
[2020-11-30 21:23] LABS: Vitamin B12 660 pg/mL (200-900)
== END 2020-11-28 14:15 | disposition home or self-care (01) ==
LOC: HO.HMGCLDS 14:14
PROVIDERS: PCP Internal Medicine; Visit Provider Internal Medicine
DX: D64.9 Anemia, unspecified (principal); I10 Essential (primary) hypertension; M79.89 Other specified soft tissue disorders
CPT/HCPCS: 36415; 80053; 82607; 82728; 82746; 83540; 83880; 84443; 85025; 85045

== ENCOUNTER → 2020-12-06 08:25 | Outpatient (BNVA) | payer MEDICARE, SELFPAY | PROVIDERS: PCP Internal Medicine; Visit Provider Internal Medicine Gastroenterology | DX: D50.9 Iron deficiency anemia, unspecified (principal) | CPT/HCPCS: 91110 ==

== ENCOUNTER 2020-12-25 14:21 | Outpatient (REF) | payer MEDICARE, SELFPAY ==
[2020-12-25 16:42] LABS: MANUAL DIFF FLAG NO
[2020-12-25 16:47] LABS: Basophils Percent Auto 0.4 % (0-2); Eosinophils Absolute Auto 0.4 X10*3/uL (0.0-0.4); Hematocrit 33.3 % (37-47); Imm Gran Abs Auto 0.03 X10*3/uL (0.00-0.03); Imm Gran Pct Auto 0.3 % (0.0-0.4); Lymphocytes Absolute Auto 2.6 X10*3/uL (1.2-4.9); Lymphocytes Percent Auto 25.8 % (20-40); Mean Corpuscular Hemoglobin 27.4 pg (27.0-33.0); Mean Corpuscular Volume 91.2 fL (80-98); Mean Platelet Volume 10.6 fL (9.4-12.3); Monocytes Absolute Auto 0.9 X10*3/uL (0.1-1.2); Neutrophils Absolute Auto 6.1 X10*3/uL (2.0-8.3); Neutrophils Percent Auto 60.5 % (45-73); Platelet Count 399 X10*3/uL (160-400); Red Blood Count 3.65 X10*6/uL (4.20-5.50); Red Cell Distribution Width 17.7 % (11.0-16.0)
[2020-12-25 17:07] LABS: Alanine Aminotransferase 11 U/L (0-31); Albumin Level 3.8 g/dL (3.5-5.0); Alkaline Phosphatase 89 U/L (39-117); Anion Gap 17 (12-20); Aspartate Amino Transferase 16 U/L (5-31); Bilirubin Total 0.2 mg/dL (0.0-1.0); Blood Urea Nitrogen 15 mg/dL (9-16); Calcium 9.2 mg/dL (8.4-10.2); Carbon Dioxide 30 mmol/L (22-29); Chloride 99 mmol/L (96-108); Estimated Glomerular Filt Rate > 60; Glucose Random 92 mg/dL (60-115); Iron 94 mcg/dL (30-160); Percent Iron Saturation 29 % (15-50); Potassium 4.7 mmol/L (3.3-5.1); Sodium 141 mmol/L (135-145); Total Iron Binding Capacity 325 mcg/dL (228-428); Total Protein 7.4 g/dL (6.5-8.0); Unsaturated Iron Binding 231 ug/dL
[2020-12-25 17:29] LABS: Ferritin 26 ng/mL (10-250)
== END 2020-12-25 14:22 | disposition home or self-care (01) ==
LOC: HO.HMGCLDS 14:21
PROVIDERS: PCP Internal Medicine; Referring Provider Internal Medicine Medical Oncology; Visit Provider Internal Medicine
DX: D64.9 Anemia, unspecified (principal); I26.99 Other pulmonary embolism without acute cor pulmonale
CPT/HCPCS: 36415; 80053; 82728; 83540; 85025

== ENCOUNTER 2021-01-09 12:03 | Outpatient (REF) | payer MEDICARE, SELFPAY ==
--- NOTE | ~2021-01-09 | XR_ITS ---
EXAMINATION: XR CHEST CLINICAL INFORMATION: Covid infection COMPARISON: Previous chest x-rays most recent October 2020 TECHNIQUE: 2 views of the chest were obtained. FINDINGS: The cardiac and mediastinal contours are stable. There is question of a faint residual airspace disease or pneumonitis seen in the right midlung. There is also question of a left upper lobe or suprahilar nodule versus superimposition of bone and vasculature structures. This measures 1 x 1.3 cm and overlies the left anterior second rib and posterior seventh rib. The lungs are otherwise clear. There is no pleural effusion or pneumothorax. Bony structures are unremarkable. XR/XR chest 2V IMPRESSION: Residual increased markings in the right midlung suggestive of residual infiltrate or pneumonitis. Question left upper lobe pulmonary nodule. Follow-up chest CT scan recommended.
== END 2021-01-09 12:04 | disposition home or self-care (01) ==
LOC: HO.XRAY 12:03
PROVIDERS: PCP Internal Medicine; Visit Provider Internal Medicine
DX: U07.1 COVID-19 (principal); J12.82 Pneumonia due to coronavirus disease 2019
CPT/HCPCS: 71046

== ENCOUNTER 2021-01-23 13:22 | Outpatient (REF) | payer MEDICARE, SELFPAY ==
[2021-01-23 14:29] LABS: Blood Urea Nitrogen 22 mg/dL (9-16); Estimated Glomerular Filt Rate 51
== END 2021-01-23 13:23 | disposition home or self-care (01) ==
LOC: HO.HMGCLDS 13:22
PROVIDERS: PCP Internal Medicine; Visit Provider Internal Medicine
DX: R91.1 Solitary pulmonary nodule (principal)
CPT/HCPCS: 36415; 82565; 84520

== ENCOUNTER 2021-01-29 11:03 | Outpatient (REF) | payer MEDICARE, SELFPAY ==
--- NOTE | ~2021-01-29 | CT_ITS ---
EXAMINATION: CT CHEST WITH CONTRAST CLINICAL INFORMATION: Pulmonary nodule. COMPARISON: Previous chest x-ray most recent 01/09/2021. TECHNIQUE: Multidetector volumetric CT imaging of the chest was obtained after the administration of 50 mL of Omnipaque 350 intravenous contrast without immediate adverse reactions. Axial MIP volume rendering provided. Sagittal and coronal reformatted images were obtained. This CT examination was performed using dose optimization techniques as appropriate, variously including the following: *Automated exposure control. *Adjustment of mA and/or kV according to patient size (this includes techniques or standardized protocols for targeted exams where dose is matched to indication/reason for exam; i.e. extremities or head). *Use of iterative reconstruction technique. DLP: 174 mGy-cm FINDINGS: LUNGS: There is evidence of emphysema. There is a 1 cm left upper lobe nodule, axial image 20 series 6. There is a 0.7 x 1.3 cm superior segment left lower lobe nodule, axial image 26 series 6. There is linear scarring or subsegmental atelectasis seen at the left lung base. MEDIASTINUM: The heart does not appear enlarged. There is mild coronary artery calcification. The thoracic aorta is normal in caliber. There are no enlarged hilar or mediastinal lymph nodes. PLEURA: There is no pleural effusion. No pleural mass or thickening. AXILLA: No lymphadenopathy. UPPER ABDOMEN: The liver is low in attenuation suggestive of fatty infiltration. There is diverticulosis of the colon. OSSEOUS STRUCTURES: There are degenerative changes of the spine. There is probable L2 vertebral body hemangioma. CT/CT chest w con IMPRESSION: 1. Emphysema. 2. Pulmonary nodules in the left upper and superior segment of the left lower lobes both suspicious for neoplasm. Findings will be communicated by the [place] work flow hematology supervisor Liana Choudhury.
[2021-01-29] MEDS: iohexoL 350 MG/ML 100 ML INFUS..BTL IV (12:24)
== END 2021-01-29 11:04 | disposition home or self-care (01) ==
LOC: HO.CT 11:03
PROVIDERS: Visit Provider Internal Medicine
DX: R91.1 Solitary pulmonary nodule (principal)
CPT/HCPCS: 71260; Q9967

== ENCOUNTER → 2021-02-02 14:14 | Outpatient (BNVA) | payer MEDICARE, SELFPAY | PROVIDERS: PCP Internal Medicine; Visit Provider Internal Medicine Pulmonary Disease | DX: I26.99 Other pulmonary embolism without acute cor pulmonale (principal); R91.1 Solitary pulmonary nodule; R06.00 Dyspnea, unspecified; Z99.81 Dependence on supplemental oxygen | CPT/HCPCS: 99202 ==

== ENCOUNTER 2021-02-15 11:31 | Outpatient (REF) | payer MEDICARE, SELFPAY ==
[2021-02-15 14:08] LABS: D Dimer 292 NG/ML
== END 2021-02-15 11:32 | disposition home or self-care (01) ==
LOC: HO.HMGCLDS 11:31
PROVIDERS: PCP Internal Medicine; Visit Provider Internal Medicine Pulmonary Disease
DX: I26.99 Other pulmonary embolism without acute cor pulmonale (principal)
CPT/HCPCS: 36415; 85379

== ENCOUNTER 2021-02-20 09:54 | Outpatient (REF) | payer MEDICARE, SELFPAY ==
--- NOTE | 2021-02-20 17:39 | PFT_ITS ---
Forced vital capacity is slightly decreased. FEV1, [id number], and MVV are markedly decreased. Bronchodilator challenge not given because the patient had used bronchodilator inhaler 2 hours prior to the test. Total lung capacity is slightly decreased. Residual volume moderately decreased. Diffusion capacity is markedly decreased. CONCLUSION: Severe obstructive airway disorder. Bronchodilator challenge not given. Clinical correlation recommended. MD IZABEL Hendrix/YRN / [id number]
== END 2021-02-20 09:55 | disposition home or self-care (01) ==
LOC: HO.RESP 09:54
PROVIDERS: PCP Internal Medicine; Visit Provider Internal Medicine Pulmonary Disease
DX: R06.00 Dyspnea, unspecified (principal)
CPT/HCPCS: 94010; 94727; 94729; 99212

== ENCOUNTER 2021-04-10 08:44 | Outpatient (REF) | payer MEDICARE, SELFPAY ==
--- NOTE | ~2021-04-10 | PE_ITS ---
EXAMINATION: Fluorine-18 FDG PET/CT Scan CLINICAL INDICATION: Initial treatment management. Solitary pulmonary nodule. PROCEDURE: 72 minutes following the intravenous administration of 17.0 mCi of fluorine 18 FDG, images from the base of the skull to the mid thighs were obtained using a combined PET/CT scanner with CT scan based attenuation correction. No oral contrast was administered. No intravenous contrast was administered. Transverse, coronal, sagittal, and volume reconstruction projections were obtained. The patient's blood glucose as determined by a finger stick, was 138 mg/dl immediately prior to injection. Total CT exam dose-length product 149.54 mGy-cm * These CT images were obtained using dose optimization techniques as appropriate, variously including the following: Automated exposure control * Adjustment of mA and/or kV according to patient size (this includes techniques or standardized protocols for targeted exams where dose is matched to indication/reason for exam; i.e. extremities or head) * Use of iterative reconstruction technique COMPARISON: No previous PET/CT scan is available for comparison. CT scan of the chest dated 01/29/2021 is available for comparison. FINDINGS: (Slice numbers described in this report are numbered superiorly to inferiorly with slice #1 in the head) NECK AND VISUALIZED HEAD: No foci of abnormal FDG activity are noted. The distribution of FDG activity is physiological. There is no cervical lymphadenopathy. THORAX: There is an FDG avid pulmonary nodule in the posterior segment of the left upper lobe, SUVmax 3.2, slice 53/223 this measures 1.2 x 1.0 cm in largest transverse dimensions and has multiple spiculations on the CT images. A second nodule which is a pleural-based nodule in the apex of the superior segment of the left lower lobe shows weak FDG activity, SUVmax 2.2, slice 61/223. On the CT images this measures 1.3 x 0.9 cm in largest transverse dimensions. . There is an additional 0.5 cm nodule in the anterolateral aspect of the right upper lobe. This is too small to be characterized on the FDG PET images. These nodules do not appear significantly changed from the previous diagnostic CT scan of the chest dated 01/29/2021. No additional pulmonary nodules are visualized. There are no additional foci of abnormal FDG activity in the chest. There is no mediastinal, supraclavicular, or axillary lymphadenopathy. There is no pleural or pericardial fluid, or pneumothorax. ABDOMEN AND PELVIS: No foci of abnormal FDG activity are present in the abdomen or pelvis. There is mild FDG activity throughout the gastrointestinal tract without a suspicious focal component. There is diverticulosis without evidence of diverticulitis. The hollow viscera are otherwise unremarkable. The liver and spleen are unremarkable. Cholelithiasis are present, but the gallbladder is otherwise unremarkable. There is a hypodense 1.0 cyst laterally in the mid right kidney, too small to be characterized well on the FDG PET images. The kidneys are otherwise unremarkable. The adrenal glands and pancreas are unremarkable. There is no retroperitoneal, mesenteric, pelvic or inguinal lymphadenopathy. There is a left adnexal cyst measuring 6.7 x 5.1 cm in largest transverse dimensions, and approximately 8.8 cm cephalocaudad. This is markedly FDG photopenic. The pelvic organs are otherwise unremarkable. MUSCULOSKELETAL: There is mild diffuse FDG activity in the shoulders bilaterally, likely arthritic. There are no other foci of abnormal FDG activity in the osseous structures. There are diffuse degenerative changes in the spine and there is a hemangioma in the L2 vertebral body and this is relatively photopenic on the FDG PET images. No suspicious sclerotic or lytic lesions are visualized. VASCULAR: Diffuse vascular calcifications including some coronary are noted. PET/PET CT fusion skull to thigh IMPRESSION: 1. A left upper lobe pulmonary nodule there is mildly FDG avid an strongly suspicious for malignancy. Biopsy is recommended, if clinically indicated. 2. A second nodule in the superior segment of the left lower lobe shows only weak FDG activity and is nonspecific and could be inflammatory or malignant in etiology. Biopsy of this nodule may also be required to determine its etiology. 3. A small subcentimeter nodule in the right upper lobe is too small to characterize on the FDG PET images. 4. No additional abnormalities suspicious for metastatic or other malignant lesions are noted. 5. Cholelithiasis. 6. Diffuse vascular calcifications including coronary.
== END 2021-04-10 08:45 | disposition home or self-care (01) ==
LOC: HO.PET 08:44
PROVIDERS: PCP Internal Medicine; Visit Provider Internal Medicine Pulmonary Disease
DX: Z13.89 Encounter for screening for other disorder (principal)

== ENCOUNTER → 2021-04-13 12:57 | Outpatient (BNVA) | payer MEDICARE, SELFPAY | PROVIDERS: PCP Internal Medicine; Visit Provider Internal Medicine Pulmonary Disease | DX: J43.9 Emphysema, unspecified (principal); R91.1 Solitary pulmonary nodule; Z99.81 Dependence on supplemental oxygen | CPT/HCPCS: 99212 ==

== ENCOUNTER 2021-05-15 10:59 | Day surgery (SDC) | payer MEDICARE, SELFPAY ==
--- NOTE | ~2021-05-15 | CT_ITS ---
PROCEDURE: CT GUIDED ASPIRATION, FINE NEEDLE, WITH IMAGE GUIDANCE CT/CT guided FNA FINDINGS AND IMPRESSION: See CT-guided biopsy lung report from accession number [id number] [facility] [place].
--- NOTE | ~2021-05-15 | XR_ITS ---
EXAMINATION: XR CHEST CLINICAL INFORMATION: Post left upper lobe lung biopsy. COMPARISON: Chest CT 01/29/2021 TECHNIQUE: 2 views of the chest were obtained. FINDINGS: The lungs are well-expanded and clear of acute process. No visible pneumothorax. Heart size is enlarged. Pulmonary vascularity is normal. No gross bony abnormality. XR/XR chest 2V IMPRESSION: No evidence of pneumothorax. Clear lungs. Mild cardiomegaly.
--- NOTE | ~2021-05-15 | CT_ITS ---
PROCEDURE: CT GUIDED BIOPSY, LUNG CLINICAL INFORMATION: Left upper lobe and left lower lobe pulmonary nodules. COMPARISON: CT chest 01/29/2021. TECHNIQUE: Following explaining CT fluoroscopy-guided left lower lobe superior segment lobe biopsy procedure, benefits and risk, a written consent was obtained. Patient was placed in right lateral decubitus view with left lung placed superiorly. Preliminary CT imaging was obtained. Left upper lobe with lead markers placed along the posterior chest. An optimal marker medially was selected and marked on the skin. The site selected was cleaned and draped in usual sterile manner. 1% lidocaine was injected at puncture site. A small skin incision, a 10 inch 22-gauge guide needle was advanced from the skin to the level of left apical pleura. Coaxially a 22-gauge Chiba needle was advanced and a fine-needle biopsy was performed x2. Postprocedure repeat imaging was performed and reveal no pneumothorax. Patient tolerated procedure extremely well. Conscious sedation was utilized during the exam. This CT examination was performed using dose optimization techniques as appropriate, variously including the following: *Automated exposure control *Adjustment of mA and/or kV according to patient size (this includes techniques or standardized protocols for targeted exams where dose is matched to indication/reason for exam; i.e. extremities or head) *Use of iterative reconstruction technique DLP: 369 mGy-cm. FINDINGS: On preliminary CT imaging, the left apical nodule is slightly more anterior from the pleural surface compared to superior segment nodule, which is more posterior towards the pleura, hence the superior segment nodule left lower lobe was selected for biopsy, in spite of mild to moderate activity on the PET study. If for some reason the biopsy of superior segment left lower lobe nodule is unsuccessful, a left upper lobe nodule biopsy can be performed next time. CT fluoroscopy-guided core axial biopsy of a superior segment left lower lobe nodule was performed. Preliminary pathology results revealed adequate tissue for diagnosis. CT/CT guided needle placement IMPRESSION: Successful CT fluoroscopy-guided left lower lobe superior segment nodular biopsy performed.
[2021-05-15 11:46] VITALS: BMI 73.3
[2021-05-15 12:06] LABS: Glucose, Whole Blood 115 mg/dL (60-115)
[2021-05-15 12:08] VITALS: BP 167/96; PULSE 93; RESP 20; TEMP 36; O2SAT 93
[2021-05-15 12:10] LABS: MANUAL DIFF FLAG NO
[2021-05-15 12:13] LABS: Basophils Percent Auto 0.4 % (0-2); Eosinophils Absolute Auto 0.3 X10*3/uL (0.0-0.4); Eosinophils Percent Auto 2.6 % (0-4); Hematocrit 40.3 % (37-47); Hemoglobin 13.2 g/dl (12.0-16.0); Imm Gran Abs Auto 0.03 X10*3/uL (0.00-0.03); Imm Gran Pct Auto 0.3 % (0.0-0.4); Lymphocytes Absolute Auto 2.3 X10*3/uL (1.2-4.9); Lymphocytes Percent Auto 22.4 % (20-40); Mean Corpuscular HGB Conc 32.8 g/dl (31.0-35.0); Mean Corpuscular Hemoglobin 29.7 pg (27.0-33.0); Mean Corpuscular Volume 90.6 fL (80-98); Mean Platelet Volume 10.2 fL (9.4-12.3); Monocytes Absolute Auto 0.8 X10*3/uL (0.1-1.2); Monocytes Percent Auto 7.6 % (2-11); Neutrophils Absolute Auto 6.7 X10*3/uL (2.0-8.3); Neutrophils Percent Auto 66.7 % (45-73); Platelet Count 275 X10*3/uL (160-400); Red Blood Count 4.45 X10*6/uL (4.20-5.50); Red Cell Distribution Width 13.6 % (11.0-16.0); White Blood Count 10.1 X10*3/uL (4.8-10.8)
[2021-05-15 12:19] LABS: Prothrombin Time 11.4 SEC (9.9-13.0)
[2021-05-15 12:21] LABS: Partial Thromboplastin Time 35.9 SEC (24.1-38.0)
[2021-05-15 14:15] VITALS: BP 153/58; PULSE 79; RESP 18; TEMP 36.3; O2SAT 94
[2021-05-15 14:30] VITALS: BP 142/73; PULSE 75; RESP 18; O2SAT 95
[2021-05-15 15:00] VITALS: BP 160/79; PULSE 75; RESP 18; O2SAT 94
[2021-05-15 15:30] VITALS: BP 154/69; PULSE 75; RESP 18; TEMP 36.3; O2SAT 94
== END 2021-05-15 16:38 | disposition home or self-care (01) ==
PROVIDERS: PCP Internal Medicine; Visit Provider Radiology Diagnostic Radiology
DX: R91.8 Other nonspecific abnormal finding of lung field (principal); I26.99 Other pulmonary embolism without acute cor pulmonale; B94.8 Sequelae of other specified infectious and parasitic diseases; I11.9 Hypertensive heart disease without heart failure; J44.9 Chronic obstructive pulmonary disease, unspecified; Z99.81 Dependence on supplemental oxygen; Z87.891 Personal history of nicotine dependence
CPT/HCPCS: 10009; 32408; 36415; 71046; 77012; 82947; 85025; 85610; 85730; 88172; 88173; 88177; 88305; 88341; 88342; 99152; J2250; J3010

== ENCOUNTER → 2021-06-26 09:58 | Outpatient (BNVA) | payer MEDICARE, SELFPAY | PROVIDERS: PCP Internal Medicine; Visit Provider Internal Medicine Pulmonary Disease | DX: J43.9 Emphysema, unspecified (principal); R91.1 Solitary pulmonary nodule | CPT/HCPCS: 99212 ==

== ENCOUNTER 2021-08-28 | Outpatient (REF) | payer MEDICARE, SELFPAY ==
[2021-08-29 12:14] LABS: Influenza A PCR NEGATIVE (Negative); Influenza B PCR NEGATIVE (Negative); Resp Syncy Virus RNA Qual PCR NEGATIVE (Negative); SARS COV2 PCR INHOUSE NEGATIVE (Negative)
== END 2021-08-28 00:01 | disposition home or self-care (01) ==
LOC: HO.LNP
PROVIDERS: Visit Provider Internal Medicine
DX: Z20.822 Contact with and (suspected) exposure to COVID-19 (principal); R43.9 Unspecified disturbances of smell and taste
CPT/HCPCS: 0241U

== ENCOUNTER 2021-09-03 10:15 | Outpatient (REF) | payer MEDICARE, SELFPAY ==
[2021-09-03 11:36] LABS: MANUAL DIFF FLAG NO
[2021-09-03 11:57] LABS: Basophils Absolute Auto 0.1 X10*3/uL (0.0-0.2); Basophils Percent Auto 0.6 % (0-2); Eosinophils Absolute Auto 0.3 X10*3/uL (0.0-0.4); Hematocrit 39.7 % (37.0-47.0); Hemoglobin 12.9 g/dl (12.0-16.0); Imm Gran Abs Auto 0.03 X10*3/uL (0.00-0.03); Imm Gran Pct Auto 0.4 % (0.0-0.4); Lymphocytes Absolute Auto 2.1 X10*3/uL (1.2-4.9); Lymphocytes Percent Auto 24.2 % (20-40); Mean Corpuscular HGB Conc 32.5 g/dl (31.0-35.0); Mean Corpuscular Hemoglobin 29.9 pg (27.0-33.0); Mean Corpuscular Volume 92.1 fL (80.0-98.0); Mean Platelet Volume 10.8 fL (9.4-12.3); Monocytes Absolute Auto 0.6 X10*3/uL (0.1-1.2); Monocytes Percent Auto 6.7 % (2-11); Neutrophils Absolute Auto 5.6 x10*3/uL (2.0-8.3); Neutrophils Percent Auto 65.1 % (45-73); Platelet Count 320 X10*3/uL (160-400); Red Blood Count 4.31 X10*6/uL (4.20-5.50); Red Cell Distribution Width 13.1 % (11.0-16.0); White Blood Count 8.5 X10*3/uL (4.8-10.8)
[2021-09-03 12:01] LABS: B Type Natriuretic Peptide 20 pg/mL (<100)
[2021-09-03 12:20] LABS: Alanine Aminotransferase 15 U/L (0-31); Albumin Level 3.7 g/dL (3.5-5.0); Alkaline Phosphatase 86 U/L (39-117); Anion Gap 12 (12-20); Aspartate Amino Transferase 17 U/L (5-31); Bilirubin Total 0.5 mg/dL (0.0-1.0); Blood Urea Nitrogen 20 mg/dL (9-16); Carbon Dioxide 26 mmol/L (22-29); Chloride 103 mmol/L (96-108); Cholesterol 207 mg/dL; Estimated Glomerular Filt Rate > 60; Glucose Random 126 mg/dL (60-115); HDL Cholesterol 41 mg/dL; LDL Cholesterol Calculated 136 mg/dl; Potassium 4.2 mmol/L (3.3-5.1); Sodium 137 mmol/L (135-145); Total Protein 6.9 g/dL (6.5-8.0); Triglycerides 151 mg/dL
[2021-09-03 12:23] LABS: Thyroid Stimulating Hormone 3.86 uIU/mL (0.32-4.0)
[2021-09-03 12:24] LABS: Free T4 (Free Thyroxine) 0.99 ng/dL (0.71-1.85); Vitamin D 25-OH Total 42.3 ng/mL (>30)
[2021-09-03 12:37] LABS: Folate 9.1 ng/mL (> or = 4.0); Vitamin B12 1287 pg/mL (200-900)
[2021-09-03 12:52] LABS: Estimated Average Glucose 140 mg/dL; Hemoglobin A1c % 6.5 %
== END 2021-09-03 10:16 | disposition home or self-care (01) ==
LOC: HO.HMGCLDS 10:15
PROVIDERS: Absent Provider Internal Medicine Medical Oncology; PCP Internal Medicine; Visit Provider Internal Medicine
DX: I26.99 Other pulmonary embolism without acute cor pulmonale (principal); E78.00 Pure hypercholesterolemia, unspecified; I10 Essential (primary) hypertension
CPT/HCPCS: 36415; 80053; 80061; 82306; 82607; 82746; 83036; 83880; 84439; 84443; 85025

== ENCOUNTER 2021-09-14 12:28 | Outpatient (REF) | payer MEDICARE, SELFPAY ==
--- NOTE | ~2021-09-14 | CT_ITS ---
EXAMINATION: CT CHEST WITHOUT CONTRAST CLINICAL INFORMATION: Follow up lung nodules. COMPARISON: CT of the chest done on 01/29/2021 subsequent whole-body PET CT study done on 04/10/[address]-guided biopsy done on 05/15/2021. TECHNIQUE: Multidetector volumetric CT imaging of the chest was done. Axial MIP volume rendering provided. Sagittal and coronal reformatted images were obtained. This CT examination was performed using dose optimization techniques as appropriate, variously including the following: *Automated exposure control *Adjustment of mA and/or kV according to patient size (this includes techniques or standardized protocols for targeted exams where dose is matched to indication/reason for exam; i.e. extremities or head) *Use of iterative reconstruction technique DLP: 1250 mGy-cm FINDINGS: SALES ORDER COORDINATOR: Unremarkable. LUNGS: The index spiculated solid nodule at the posterior superior aspect of the left upper lobe of the lung is reidentified, currently measures 1.1 cm (159:7), given the slight subjective difference in measurement, appears stable (previously measured 1.0 cm). The second index spiculated solid pleural-based mass seen at superior segment of left lower lobe of the lung apices is also reidentified, currently measures 1.3 cm, previously also 1.3 cm (207:7) and is stable. Underlying moderate to severe emphysematous disease is present bilaterally with predominant involvement of both upper lobes. Linear pleural parenchymal scar related changes are noted at left lung base, unchanged. Tracheobronchial tree is patent. No new abnormalities. MEDIASTINUM: There are multiple shotty prevascular as well as paratracheal lymph nodes present, similar to prior study. Moderate atherosclerotic disease including coronary artery calcifications are noted, unchanged. PLEURA: There is no pleural effusion. No pleural mass or thickening. AXILLA: Multiple shotty prominent bilateral axillary lymph nodes are noted, unchanged. UPPER ABDOMEN: No evidence of any adrenal mass. No significant change. OSSEOUS STRUCTURES: No suspicious focal lesion. Vertebral body hemangioma at L2, unchanged. CT/CT chest wo con IMPRESSION: The index spiculated solid noncalcified nodules seen within the left upper lobe and left lower lobe of the lung measuring approximately 1.1 and 1.3 cm respectively appear stable since the baseline initially detected CT of the chest dated 01/29/2021. Although stable, given the morphology, the findings are suspicious for primary lung parenchymal malignancy. Since prior attempted CT-guided biopsy was indeterminate, and the nodules were PET positive, surgical consultation for possible wedge resection/excisional biopsy as appropriate is recommended for definitive diagnosis. No new abnormalities.
== END 2021-09-14 12:29 | disposition home or self-care (01) ==
LOC: HO.CT 12:28
PROVIDERS: PCP Internal Medicine; Visit Provider Internal Medicine Pulmonary Disease
DX: R91.1 Solitary pulmonary nodule (principal)
CPT/HCPCS: 71250

== ENCOUNTER → 2021-09-19 09:54 | Outpatient (BNVA) | payer MEDICARE, SELFPAY | PROVIDERS: PCP Internal Medicine; Visit Provider Internal Medicine Pulmonary Disease | DX: J43.9 Emphysema, unspecified (principal); R91.8 Other nonspecific abnormal finding of lung field | CPT/HCPCS: 99212 ==

== ENCOUNTER 2021-12-26 09:14 | Outpatient (REF) | payer MEDICARE, SELFPAY ==
[2021-12-26 12:00] LABS: Estimated Average Glucose 128 mg/dL; Hemoglobin A1C 151.9877 umol/L; Hemoglobin A1c % 6.1 %
[2021-12-26 12:09] LABS: Creatinine Urine 64.82 mg/dL; Microalbum/Creatinine Ratio Ur 52.4 ug/mg cr
[2021-12-26 12:25] LABS: Alanine Aminotransferase 23 U/L (0-31); Albumin Level 3.8 g/dL (3.5-5.0); Alkaline Phosphatase 85 U/L (39-117); Anion Gap 12 (12-20); Aspartate Amino Transferase 24 U/L (5-31); Bilirubin Total 0.6 mg/dL (0.0-1.0); Blood Urea Nitrogen 19 mg/dL (9-16); Carbon Dioxide 28 mmol/L (22-29); Chloride 105 mmol/L (96-108); Cholesterol 223 mg/dL; Estimated Glomerular Filt Rate > 60; Glucose Random 107 mg/dL (60-115); HDL Cholesterol 43 mg/dL; LDL Cholesterol Calculated 152 mg/dl; Potassium 4.5 mmol/L (3.3-5.1); Sodium 140 mmol/L (135-145); Triglycerides 141 mg/dL
== END 2021-12-26 09:15 | disposition home or self-care (01) ==
LOC: HO.HMGCLDS 09:14
PROVIDERS: Visit Provider Internal Medicine
DX: E11.65 Type 2 diabetes mellitus with hyperglycemia (principal); E78.00 Pure hypercholesterolemia, unspecified
CPT/HCPCS: 36415; 80053; 80061; 82043; 83036

== ENCOUNTER 2022-02-02 15:40 | Outpatient (REF) | payer MEDICARE, SELFPAY ==
[2022-02-02 16:39] LABS: Influenza A PCR NEGATIVE (Negative); Influenza B PCR NEGATIVE (Negative); Resp Syncy Virus RNA Qual PCR NEGATIVE (Negative); SARS COV2 PCR INHOUSE NEGATIVE (Negative)
== END 2022-02-02 15:41 | disposition home or self-care (01) ==
LOC: HO.LNP 15:40
PROVIDERS: Visit Provider Physician Assistant
DX: Z20.822 Contact with and (suspected) exposure to COVID-19 (principal); B34.9 Viral infection, unspecified
CPT/HCPCS: 0241U

== ENCOUNTER 2022-03-12 10:35 | Outpatient (REF) | payer MEDICARE, SELFPAY ==
--- NOTE | ~2022-03-12 | CT_ITS ---
EXAMINATION: CT CHEST WITHOUT CONTRAST CLINICAL INFORMATION: Follow-up pulmonary nodules COMPARISON: Previous chest CT scan January and September 2021 TECHNIQUE: Multidetector volumetric CT imaging of the chest was done. Axial MIP volume rendering provided. Sagittal and coronal reformatted images were obtained. This CT examination was performed using dose optimization techniques as appropriate, variously including the following: *Automated exposure control *Adjustment of mA and/or kV according to patient size (this includes techniques or standardized protocols for targeted exams where dose is matched to indication/reason for exam; i.e. extremities or head) *Use of iterative reconstruction technique DLP: 169 mGy-cm FINDINGS: LUNGS: There is evidence of emphysema. There is a spiculated posterior segment left upper lobe nodule. This measures 1.2 cm in greatest transverse dimension compared to 1.1 cm September 2021 exam. This is a spiculated and there is slight retraction of the left pleural fissure. There is a spiculated superior segment right lower lobe nodule. This measures maximum 1.3 cm in transverse dimension and does not appear appreciably changed. There is a 4 mm anterior segment right upper lobe nodule axial image 196 series 9 that is stable. There is a irregularly-shaped right lower lobe nodule that is increased in size. This measures 5 x 8 mm axial image 283 series 9 compared to 2 x 6 mm September 2021 exam. There are increasing small clustered nodules and increased peribronchial attenuation in the medial segment of the right middle lobe. Largest nodule measures 2 mm for example axial image 329 series 9. Clustered peribronchial appearance favors an infectious or inflammatory process. There is a 5 mm peripheral or subpleural right lower lobe nodule axial image 398 series 9 that is stable. MEDIASTINUM: There are small mediastinal lymph nodes that are stable. The heart does not appear enlarged. There is coronary artery calcification. There is no pericardial effusion. The thoracic aorta is normal in caliber. PLEURA: There is no pleural effusion. No pleural mass or thickening. AXILLA: There is shotty bilateral axillary lymphadenopathy. This is similar to previous exams. No chest wall mass. UPPER ABDOMEN: Unremarkable. OSSEOUS STRUCTURES: There are degenerative changes of the spine. There is a probable hemangioma in the L2 vertebral body. CT/CT chest wo con IMPRESSION: Emphysema. Interval increase in size in right lower lobe nodule in question slight interval increase in size in the left upper lobe nodule. New increasing clustered peribronchial nodules in the right middle lobe. Clustered appearance favors an infectious or inflammatory process. Otherwise pulmonary nodules are stable. Coronary artery calcification. Stable shotty mediastinal lymphadenopathy. Fleischner guidelines were followed.
== END 2022-03-12 10:36 | disposition home or self-care (01) ==
LOC: HO.CT 10:35
PROVIDERS: PCP Internal Medicine; Visit Provider Internal Medicine Pulmonary Disease
DX: R91.8 Other nonspecific abnormal finding of lung field (principal)
CPT/HCPCS: 71250

== ENCOUNTER 2022-03-28 08:11 | Outpatient (REF) | payer MEDICARE, SELFPAY ==
[2022-03-28 11:17] LABS: Basophils Percent Auto 0.4 % (0-2); Eosinophils Absolute Auto 0.5 X10*3/uL (0.0-0.4); Eosinophils Percent Auto 4.7 % (0-4); Hematocrit 38.9 % (37.0-47.0); Hemoglobin 12.4 g/dl (12.0-16.0); Imm Gran Abs Auto 0.04 X10*3/uL (0.00-0.03); Imm Gran Pct Auto 0.4 % (0.0-0.4); Lymphocytes Absolute Auto 1.9 X10*3/uL (1.2-4.9); Lymphocytes Percent Auto 17.3 % (20-40); MANUAL DIFF FLAG NO; Mean Corpuscular HGB Conc 31.9 g/dl (31.0-35.0); Mean Corpuscular Hemoglobin 29.7 pg (27.0-33.0); Mean Corpuscular Volume 93.1 fL (80.0-98.0); Mean Platelet Volume 11.1 fL (9.4-12.3); Monocytes Absolute Auto 0.9 X10*3/uL (0.1-1.2); Monocytes Percent Auto 8.1 % (2-11); Neutrophils Absolute Auto 7.4 x10*3/uL (2.0-8.3); Neutrophils Percent Auto 69.1 % (45-73); Platelet Count 257 X10*3/uL (160-400); Red Blood Count 4.18 X10*6/uL (4.20-5.50); Red Cell Distribution Width 13.2 % (11.0-16.0); White Blood Count 10.7 X10*3/uL (4.8-10.8)
[2022-03-28 11:31] LABS: Estimated Average Glucose 131 mg/dL; Hemoglobin A1C 150.6515 umol/L; Hemoglobin A1c % 6.2 %
[2022-03-28 11:32] LABS: Alanine Aminotransferase 13 U/L (0-31); Albumin Level 3.7 g/dL (3.5-5.0); Alkaline Phosphatase 96 U/L (39-117); Anion Gap 12 (12-20); Aspartate Amino Transferase 16 U/L (5-31); Bilirubin Total 0.5 mg/dL (0.0-1.0); Blood Urea Nitrogen 23 mg/dL (9-16); Calcium 8.5 mg/dL (8.4-10.2); Carbon Dioxide 26 mmol/L (22-29); Chloride 107 mmol/L (96-108); Estimated Glomerular Filt Rate 60; Glucose Random 115 mg/dL (60-115); Potassium 4.3 mmol/L (3.3-5.1); Sodium 141 mmol/L (135-145); Total Protein 6.8 g/dL (6.5-8.0)
[2022-03-28 11:38] LABS: Alanine Aminotransferase 13 U/L (0-31); Albumin Level 3.7 g/dL (3.5-5.0); Alkaline Phosphatase 95 U/L (39-117); Anion Gap 12 (12-20); Aspartate Amino Transferase 16 U/L (5-31); Bilirubin Total 0.5 mg/dL (0.0-1.0); Blood Urea Nitrogen 24 mg/dL (9-16); Calcium 8.5 mg/dL (8.4-10.2); Carbon Dioxide 25 mmol/L (22-29); Chloride 107 mmol/L (96-108); Cholesterol 209 mg/dL; Estimated Glomerular Filt Rate 60; Glucose Random 114 mg/dL (60-115); HDL Cholesterol 51 mg/dL; LDL Cholesterol Calculated 138 mg/dl; Potassium 4.3 mmol/L (3.3-5.1); Sodium 140 mmol/L (135-145); Total Protein 6.8 g/dL (6.5-8.0); Triglycerides 101 mg/dL
[2022-03-28 11:55] LABS: Ferritin 105 ng/mL (10-250)
== END 2022-03-28 08:12 | disposition home or self-care (01) ==
LOC: HO.HMGCLDS 08:11
PROVIDERS: Internal Medicine Medical Oncology; PCP Internal Medicine; Visit Provider Internal Medicine
DX: E78.00 Pure hypercholesterolemia, unspecified (principal); D64.9 Anemia, unspecified; E11.65 Type 2 diabetes mellitus with hyperglycemia
CPT/HCPCS: 36415; 80053; 80061; 82728; 83036; 85025

== ENCOUNTER → 2022-04-02 09:36 | Outpatient (BNVA) | payer MEDICARE, SELFPAY | PROVIDERS: PCP Internal Medicine; Visit Provider Internal Medicine Pulmonary Disease | DX: J43.9 Emphysema, unspecified (principal); R91.8 Other nonspecific abnormal finding of lung field | CPT/HCPCS: 99212 ==

== ENCOUNTER 2022-09-23 15:13 | Outpatient (REF) | payer MEDICARE, SELFPAY ==
--- NOTE | ~2022-09-23 | XR_ITS ---
EXAMINATION: XR CHEST CLINICAL INFORMATION: Acute bronchitis COMPARISON: CT chest 03/12/2022 TECHNIQUE: 2 views of the chest were obtained. FINDINGS: The lungs are expanded with patchy atelectasis or scarring right upper lobe and a known spiculated-appearing lesion left upper lobe adjacent to the medial and of first rib measuring 1.3 cm. No additional lesions seen. XR/XR chest 2V IMPRESSION: 1. Right upper lobe patchy atelectasis or scarring. Spiculated-appearing lesion left upper lobe adjacent to the medial end first rib measuring 1.3 cm. The nodule is unchanged to previous CT chest 03/12/2022.
== END 2022-09-23 15:14 | disposition home or self-care (01) ==
LOC: HO.HMGCX 15:13
PROVIDERS: Visit Provider Nurse Practitioner Family
DX: J20.9 Acute bronchitis, unspecified (principal)
CPT/HCPCS: 71046

== ENCOUNTER 2022-09-23 17:05 | Outpatient (REF) | payer MEDICARE, SELFPAY ==
[2022-09-23 17:58] LABS: Influenza A PCR NEGATIVE (Negative); Influenza B PCR NEGATIVE (Negative); Resp Syncy Virus RNA Qual PCR NEGATIVE (Negative); SARS COV2 PCR INHOUSE NEGATIVE (Negative)
== END 2022-09-23 17:06 | disposition home or self-care (01) ==
LOC: HO.LNP 17:05
PROVIDERS: Visit Provider Nurse Practitioner Family
DX: Z20.822 Contact with and (suspected) exposure to COVID-19 (principal); R09.89 Other specified symptoms and signs involving the circulatory and respiratory systems
CPT/HCPCS: 0241U

== ENCOUNTER → 2022-10-29 11:23 | Outpatient (BNVA) | payer MEDICARE, SELFPAY | PROVIDERS: PCP Internal Medicine; Visit Provider Internal Medicine Pulmonary Disease | DX: R91.8 Other nonspecific abnormal finding of lung field (principal); J43.9 Emphysema, unspecified | CPT/HCPCS: 99212 ==

== ENCOUNTER 2023-02-12 10:40 | Outpatient (REF) | payer MEDICARE, SELFPAY ==
--- NOTE | ~2023-02-12 | CT_ITS ---
EXAMINATION: CT CHEST WITHOUT CONTRAST CLINICAL INFORMATION: Follow-up pulmonary nodules COMPARISON: Previous chest CT most recent September 2022 TECHNIQUE: Multidetector volumetric CT imaging of the chest was done. Axial MIP volume rendering provided. Sagittal and coronal reformatted images were obtained. This CT examination was performed using dose optimization techniques as appropriate, variously including the following: *Automated exposure control *Adjustment of mA and/or kV according to patient size (this includes techniques or standardized protocols for targeted exams where dose is matched to indication/reason for exam; i.e. extremities or head) *Use of iterative reconstruction technique DLP: 231 mGy-cm FINDINGS: LUNGS: Exam is limited due to artifact from respiratory motion. There is a 1.2 cm spiculated left upper lobe nodule. There is a irregularly-shaped 1.2 x 1.5 cm superior segment left lower lobe nodule. Both nodules may be minimally increased in size from most recent previous exam March 2022 measuring 1.1 and 1 x 1.4 cm by my measurement. When compared with older available exam from 2020 nodules measured 1 cm and 0.7 x 1.3 cm and may be actually increasing in size. There is a spiculated 7 mm right upper lobe nodule axial image 289 series 5. This is increased in size from 4 mm on most recent exam March 2022. There is evidence of emphysema. There is scarring in the right lung apex axial image 78 series 5 that is unchanged. There is a 3 mm right upper lobe nodule axial image 216 series 5 that is unchanged. There is a central bronchovascular 4 mm right lower lobe nodule axial image 319 series 5. This appears decreased in size from most recent exam March 2022 and this measured approximately 4 x 10 mm. MEDIASTINUM: Small mediastinal lymph nodes. No enlarged lymph nodes. Normal heart size. No pericardial effusion. Normal caliber thoracic aorta. CORONARY ARTERY CALCIFICATION: Mild PLEURA: There is no pleural effusion. No pleural mass or thickening. AXILLA: Small bilateral axillary lymph nodes. No chest wall mass or enlarged axillary lymph nodes. UPPER ABDOMEN: Dependent high increased attenuation in the gallbladder. This could be better evaluated with ultrasound if clinically indicated. Probable small right renal cyst. Diverticulosis of the colon. OSSEOUS STRUCTURES: Degenerative changes of the spine. CT/CT chest wo IV con IMPRESSION: Limited exam due to respiratory motion artifact. Interval increase in right upper lobe nodule and probable gradual increase in left upper and left lower lobe nodules. Severe emphysema. Interval decrease in right lower lobe nodule. Other small nodules appear unchanged. Fleischner guidelines were followed.
== END 2023-02-12 10:41 | disposition home or self-care (01) ==
LOC: HO.CT 10:40
PROVIDERS: PCP Internal Medicine; Visit Provider Internal Medicine Pulmonary Disease
DX: R91.1 Solitary pulmonary nodule (principal)
CPT/HCPCS: 71250

== ENCOUNTER 2023-04-18 10:28 | Outpatient (AMB) | payer MEDICARE, SELFPAY ==
--- NOTE | 2023-04-18 10:29 | A.OFFVIS_ITS ---
Intake Vital Signs 04/18/23 10:32 Height 5 ft 4 in Weight 218 lb 4.122 oz BMI 37.5 BP 138/66 Blood Pressure Location Lt brachial Position Sitting Pulse 82 Pulse Source Pulse Oximeter Pulse Oximetry (%) 97 Oxygen Delivery Method Room Air Intake Visit Reasons: CT follow up Intake Note: Pt was last seen on 10/29/22 for emphysema and was sent for a chest CT, completed on 02/12/23. Pt presents today to discuss the results of the CT. Pt complains of shortness of breath on exertion, says everything is about the same. Allergies codeine [CODEINE] Allergy (Intermediate, Verified 04/18/23 10:37) TONGUE SWELLING amlodipine Adverse Reaction (Intermediate, Verified 04/18/23 10:37) leg swell HPI CT follow up HPI Details 77-year-old lady, former 30+ pack-year smoker, quit 20 years prior with underlying history of COVID-19 and September of 2020, discharged on supplemental oxygen, COVID-19 related pulmonary emboli, followed for pulmonary nodules, COPD, and COVID-19 provoked pulmonary emboli.? Her PET-CT showed two PET positive left-sided nodules.? Patient has had 1 out of 2 biopsied with results showing no malignancy.? At this time she does not want to proceed with a biopsy of the 2nd nodule.? Patient has been explained that delay in diagnosis can lead to development of metastatic lung cancer with early .?She continues on albuterol MDI. She denies recent bronchitic exacerbation. Patient does complain of slowly worsening dyspnea on exertion. She also had a follow-up CT chest that continue to show slowly enlarging pulmonary nodules. Patient continues to remain not interested in further workup or biopsy. [facility] Medical History Anemia Cataract History of blood transfusion (~10/2020) History of COVID-19 (~09/2020) Hypercholesterolemia Hypertension Obesity (BMI 30-39.9) Osteopenia Peripheral vascular disease Pneumonia due to COVID-19 virus (~09/2020) Pulmonary embolism (~10/2020) Pulmonary nodule Surgical History History of cataract surgery (~2019) History of colonoscopy (~2020) History of esophagogastroduodenoscopy (EGD) (~2020) History of hand surgery (~2019) History of lung biopsy Family History Father Prostate cancer Diabetes Mother Pneumonia Social History Household Members: Children Housing: House Do you presently have visiting nurse or other home services: No Alcohol intake: current Alcohol intake frequency: does not drink Alcohol type: wine Patient Tobacco Use Status: Former Tobacco user Tobacco use type: Cigarette Cigarette Packs Per Day: 1 e-Cigarette/Vaping Use: Never Used Second Hand Smoke Exposure: No service: No Current occupational status: retired Cognitive needs: No Hearing needs: No Vision needs: Yes Review of Systems Const Denies daytime sleepiness, Denies excessive sweating, Denies fatigue, Denies fever(s), Denies lethargy, Denies malaise, Denies night sweats, Denies snoring and Denies weight loss Eyes Denies blurry vision and Denies itchy eyes ENT Denies nasal congestion, Denies post nasal drip, Denies sinus pain, Denies sinus pressure and Denies other ( Thrush) Card Denies chest pain, Denies pedal edema, Denies dyspnea, Reports dyspnea on exertion, Denies orthopnea and Denies paroxysmal nocturnal dyspnea Resp Denies cough, Denies hemoptysis, Denies excessive phlegm production, Denies dyspnea, Reports dyspnea on exertion, Denies snoring and Denies wheezing GI Denies abdominal pain and Denies heartburn Musc Denies myalgias, Denies arthralgias and Denies joint swelling Skin/Breast Denies rash Neuro Denies memory loss and Denies seizure-like activity Psych Denies abnormal sleep pattern, Denies anxiety and Denies memory loss Endo Denies excessive sweating, Denies fatigue and Denies heat intolerance Jacob/Lymph Denies easy bruising Aller/Immun Denies itchy eyes, Denies seasonal rhinorrhea and Denies wheezing Physical Exam Vital Signs: Last Vital Signs Pulse 82 04/18/23 10:32 BP 138/66 04/18/23 10:32 Pulse Ox 97 04/18/23 10:32 Oxygen Delivery Method Room Air 04/18/23 10:32 BMI result Body Mass Index 37.5 Const General: no acute distress and alert Nutritional Appearance: obese Orientation/consciousness: Other orientation findings ( oriented) HEENT Head: Yes atraumatic Eyes General: appearance normal, both eyes and all related structures Sclerae: sclerae normal EOM: EOMs intact bilaterally Neck Neck: Yes supple Lymphatic: no lymphadenopathy noted Resp Effort & Inspection: normal respiratory effort and no use of accessory muscles Auscultation: clear to auscultation bilaterally Cardio Rate: regular rate Rhythm: regular rhythm Heart sounds: no gallops, no murmurs and no rubs Skin General skin exam: other ( warm) Extrem General: No clubbing, No cyanosis and No edema Assessment & Plan Assessment & Plan (1) Emphysema lung: Code(s): J43.9 - Emphysema, unspecified Plan: Now with worsening symptom control. Patient has been encouraged to continue using her albuterol MDI as needed. (2) Supplemental oxygen dependent: Onset Date: ~2020 Code(s): Z99.81 - Dependence on supplemental oxygen Plan: 6 minute walk test/supplemental oxygen of [place] performed. Patient now require supplemental oxygen at 3 L with exertion, but not at rest. She also continues to require supplemental oxygen at 2 L at night. Updated order placed. (3) Pulmonary nodules: Code(s): R91.8 - Other nonspecific abnormal finding of lung field Plan: Results of follow-up CT chest reviewed, slowly increasing bilateral pulmonary nodules. Patient continues to remain adamant about not going forward with further workup or biopsy, even understanding that this may be a treatable cancer from which she can otherwise. Coding Level of Care Code Est Pt Level 5 (64259) Diagnoses Emphysema lung J43.9 Supplemental oxygen dependent Z99.81 Pulmonary nodules R91.8
[2023-04-18 10:32] VITALS: BP 138/66; PULSE 82; O2SAT 97; BMI 37.5
== END 2023-04-18 11:09 | disposition home or self-care (01) ==
PROVIDERS: PCP Internal Medicine; Visit Provider Internal Medicine Pulmonary Disease
DX: J43.9 Emphysema, unspecified (principal); Z99.81 Dependence on supplemental oxygen; R91.8 Other nonspecific abnormal finding of lung field
CPT/HCPCS: 99214

== ENCOUNTER → 2023-04-18 10:28 | Outpatient (BNVA) | payer MEDICARE, SELFPAY | PROVIDERS: PCP Internal Medicine; Visit Provider Internal Medicine Pulmonary Disease | DX: J43.9 Emphysema, unspecified (principal); R91.8 Other nonspecific abnormal finding of lung field; Z99.81 Dependence on supplemental oxygen | CPT/HCPCS: 99212 ==

== ENCOUNTER 2023-04-22 09:28 | Outpatient (REF) | payer MEDICARE, SELFPAY ==
[2023-04-22 11:25] LABS: MANUAL DIFF FLAG NO
[2023-04-22 11:49] LABS: Basophils Percent Auto 0.5 % (0-2); Eosinophils Absolute Auto 0.3 X10*3/uL (0.0-0.4); Eosinophils Percent Auto 3.3 % (0-4); Hematocrit 38.6 % (37.0-47.0); Hemoglobin 12.1 g/dl (12.0-16.0); Imm Gran Abs Auto 0.02 X10*3/uL (0.00-0.03); Imm Gran Pct Auto 0.2 % (0.0-0.4); Lymphocytes Percent Auto 24.1 % (20-40); Mean Corpuscular HGB Conc 31.3 g/dl (31.0-35.0); Mean Corpuscular Hemoglobin 28.9 pg (27.0-33.0); Mean Corpuscular Volume 92.1 fL (80.0-98.0); Mean Platelet Volume 11.2 fL (9.4-12.3); Monocytes Absolute Auto 0.7 X10*3/uL (0.1-1.2); Monocytes Percent Auto 8.1 % (2-11); Neutrophils Absolute Auto 5.3 x10*3/uL (2.0-8.3); Neutrophils Percent Auto 63.8 % (45-73); Platelet Count 278 X10*3/uL (160-400); Red Blood Count 4.19 X10*6/uL (4.20-5.50); Red Cell Distribution Width 14.3 % (11.0-16.0); White Blood Count 8.4 X10*3/uL (4.8-10.8)
[2023-04-22 12:16] LABS: Estimated Average Glucose 134 mg/dL; Hemoglobin A1c % 6.3 %
[2023-04-22 12:32] LABS: Alanine Aminotransferase 12 U/L (0-31); Albumin Level 3.4 g/dL (3.5-5.0); Alkaline Phosphatase 88 U/L (39-117); Anion Gap 9 (12-20); Aspartate Amino Transferase 14 U/L (5-31); Bilirubin Total 0.4 mg/dL (0.0-1.0); Blood Urea Nitrogen 20 mg/dL (9-16); Calcium 9.2 mg/dL (8.4-10.2); Carbon Dioxide 30 mmol/L (22-29); Chloride 102 mmol/L (96-108); Cholesterol 184 mg/dL; Estimated Glomerular Filt Rate > 60; Free T4 (Free Thyroxine) 0.92 ng/dL (0.71-1.85); Glucose Random 120 mg/dL (60-115); HDL Cholesterol 43 mg/dL; LDL Cholesterol Calculated 116 mg/dl; Potassium 4.3 mmol/L (3.3-5.1); Sodium 137 mmol/L (135-145); Thyroid Stimulating Hormone 5.32 uIU/mL (0.32-4.0); Total Protein 7.1 g/dL (6.5-8.0); Triglycerides 128 mg/dL; Vitamin D 25-OH Total 39.1 ng/mL (>30)
[2023-04-22 12:49] LABS: Vitamin B12 1284 pg/mL (200-900)
[2023-04-22 14:45] LABS: Creatinine Urine 92.59 mg/dL; Microalbum/Creatinine Ratio Ur 34.5 ug/mg cr
== END 2023-04-22 09:29 | disposition home or self-care (01) ==
LOC: HO.HMGCLDS 09:28
PROVIDERS: PCP Internal Medicine; Visit Provider Internal Medicine
DX: E11.65 Type 2 diabetes mellitus with hyperglycemia (principal); E78.00 Pure hypercholesterolemia, unspecified; E55.9 Vitamin D deficiency, unspecified
CPT/HCPCS: 36415; 80053; 80061; 82043; 82306; 82607; 82746; 83036; 84439; 84443; 85025

== ENCOUNTER 2023-04-29 11:41 | Outpatient (AMB) | payer MEDICARE, SELFPAY ==
[2023-04-29 11:45] VITALS: BP 142/78; PULSE 79; O2SAT 91; BMI 37.1
--- NOTE | 2023-04-29 11:45 | A.OFFPC_ITS ---
Vital Signs 04/29/23 11:45 Height 5 ft 4 in Weight 216 lb BMI 37.1 BP 142/78 H Blood Pressure Location Lt brachial Position Sitting Pulse 79 Pulse Source Pulse Oximeter Pulse Oximetry (%) 91 L Oxygen Delivery Method Room Air Intake Visit Reasons: HTN, DM Allergies codeine [CODEINE] Allergy (Intermediate, Verified 04/29/23 11:45) TONGUE SWELLING amlodipine Adverse Reaction (Intermediate, Verified 04/29/23 11:45) leg swell Medication List - Last Reconciled 04/29/23 by Marizol Palacios MD albuterol sulfate 90 mcg/actuation 2 puffs inhalation Q4-6H PRN 30 days ascorbic acid (vitamin C) ER 1,000 mg PO Q12H cholecalciferol (vitamin D3) 50 mcg PO DAILY cyanocobalamin (vitamin B-12) 1,000 mcg PO DAILY fluticasone propionate 50 mcg/actuation 1 spray intranasal Q12H PRN furosemide 20 mg PO BID 90 days losartan 100 mg PO DAILY metoprolol succinate ER 100 mg PO DAILY 90 days [oxygen As directed] Tobacco use date assessed: 10/22/22 Fall risk assessment: No Falls in past year Last assessed Fall Risk: 04/29/23 Dental Screening Dental Screen Date: 04/29/23 Did you have a dental visit in the last 12 months?: No Did you have a dental problem in the last 6 months where you did not have access to dental care?: No Was dental information given to patient?: No HPI HTN, DM HPI Details 77-year-old obese female with diabetes mellitus hypertension COPD on oxygen hypercholesterolemia coming in for follow-up last seen in January 2023 blood work was requested. Patient follows up with Pulmonary seen in April 2023 patient had COVID-19 related pulmonary emboli patient also had a PET-CT positive left-sided nodules patient declined any further workup on supplemental oxygen 3 L on exertion patient brought with her the blood pressure machine and it is almost the same blood pressures were getting. Blood pressure has been high. [facility] Medical History (Updated 04/29/23 @ 12:00 by Marizol Palacios MD) Anemia Cataract Emphysema lung History of blood transfusion (~10/2020) History of COVID-19 (~09/2020) Hypercholesterolemia Hypertension Obesity (BMI 30-39.9) Osteopenia Peripheral vascular disease Pneumonia due to COVID-19 virus (~09/2020) Pulmonary embolism (~10/2020) Pulmonary nodule Pulmonary nodule Surgical History History of cataract surgery (~2019) History of colonoscopy (~2020) History of esophagogastroduodenoscopy (EGD) (~2020) History of hand surgery (~2019) History of lung biopsy Family History Father Prostate cancer Diabetes Mother Pneumonia Social History Household Members: Children Housing: House Do you presently have visiting nurse or other home services: No Alcohol intake: current Alcohol intake frequency: does not drink Alcohol type: wine Patient Tobacco Use Status: Former Tobacco user Tobacco use type: Cigarette Cigarette Packs Per Day: 1 e-Cigarette/Vaping Use: Never Used Second Hand Smoke Exposure: No service: No Current occupational status: retired Cognitive needs: No Hearing needs: No Vision needs: Yes Questionnaire PHQ-9 Over the last 2 weeks, how often have you been bothered by any of the following problems? 1. Little interest or pleasure in doing things: not at all 2. Feeling down, depressed, or hopeless: not at all 3. Trouble falling or staying asleep, or sleeping too much: not at all 4. Feeling tired or having little energy: not at all 5. Poor appetite or overeating: not at all 6. Feeling bad about yourself - or that you are a failure or have let yourself or your family down: not at all 7. Trouble concentrating on things, such as reading the newspaper or watching television: not at all 8. Moving or speaking so slowly that other people could have noticed. Or the opposite - being so fidgety or restless that you have been moving around a lot more than usual: not at all 9. Thoughts that you would be better off or of hurting yourself in some way: not at all Total score: 0 Depression Screening Interpretation: Negative Source: Developed by Drs. Miguel Green, Olga Hinkle, Yuan Martinez and colleagues, with an educational cornelius from [employer]. Thrive Questionnaire Date Thrive assessed: 10/22/22 AUDIT C Alcohol Use Questionnaire (AUDIT-C) 1. How often do you have a drink containing alcohol?: Monthly or less 2. How many drinks containing alcohol do you have on a typical day when you are drinking?: 1 or 2 Total Score: 1 IGNACIO-7 AMB Questionnaire IGNACIO-7 Date IGNACIO - 7 assessed: 10/22/22 Source: Developed by Drs. Miguel Green, Olga Hinkle, Yuan Martinez and colleagues, with an educational cornelius from [employer]. Physical exam (Primary Care) Vital Signs: Last Vital Signs Pulse 79 04/29/23 11:45 BP 142/78 H 04/29/23 11:45 Pulse Ox 91 L 04/29/23 11:45 Oxygen Delivery Method Room Air 04/29/23 11:45 BMI result Body Mass Index 37.1 Tobacco/Smoking Status: Tobacco use Status Tobacco use date assessed 10/22/22 04/29/23 11:52 Patient Tobacco Use Status Former Tobacco user 04/29/23 11:52 Tobacco use type Cigarette 04/29/23 11:52 e-Cigarette/Vaping Use Never Used 04/29/23 11:52 PHQ-9: PHQ-9 Score PHQ-9: Total score 0 04/29/23 11:52 Depression Screening Interpretation: Negative Thrive Assessment: Date of Thrive Assessment Date Thrive assessed 10/22/22 04/29/23 11:52 Const General: alert; No acute distress Eyes Conjunctivae: conjunctivae normal Resp Auscultation: clear to auscultation bilaterally Cardio Rate: regular rate Rhythm: regular rhythm GI Inspection: Yes normal to inspection Extrem General: Yes normal to inspection and No edema Assessment and Plan Assessment & Plan (1) TSH elevation: Code(s): R79.89 - Other specified abnormal findings of blood chemistry Plan: This will need retesting (2) Pulmonary nodules: Comment: 02/2023 Code(s): R91.8 - Other nonspecific abnormal finding of lung field Plan: Continuing to follow-up. Patient has declined any further workup and will continue with surveillance (3) Hypercholesterolemia: Comment: decline any med 03/2022 Code(s): E78.00 - Pure hypercholesterolemia, unspecified Plan: Avoid fried foods, chicken skin, eggs, butter margarine, pastries and meat. Be it pork or beef they have a lot of cholesterol LDL goal of less than 100 and triglyceride of less than 150. Discussed about cholesterol medication (4) Type 2 diabetes mellitus with hyperglycemia: Comment: [facility] Code(s): E11.65 - Type 2 diabetes mellitus with hyperglycemia Plan: Decrease the amount of carbohydrate intake, pasta, bread, rice and potatoes are all sugar and that is aside from all the sweet stuff, remember that fruits are good but they are Sweet also. Hemoglobin A1c goal of less than 7.0 (5) Hypertension: Code(s): I10 - Essential (primary) hypertension Qualifiers: Hypertension type: essential hypertension Qualified Code(s): I10 - Essential (primary) hypertension Plan: Continue with blood pressure medication. Decrease salt intake and exercise continue with metoprolol 100 mg once a day losartan 100 mg once a day on furosemide. Patient had swelling with amlodipine and had cramps on hydrochlorothiazide. Will add hydralazine for blood pressure control (6) Obesity (BMI 30-39.9): Code(s): E66.9 - Obesity, unspecified Plan: Diet and exercise (7) COPD (chronic obstructive pulmonary disease): Code(s): J44.9 - Chronic obstructive pulmonary disease, unspecified Plan: Continue with inhalers Orders: Orders Comprehensive Met. Panel 3 Months E78.00 - Pure hypercholesterolemia, unspecified Hemoglobin A1c 3 Months E78.00 - Pure hypercholesterolemia, unspecified Lipid Panel 3 Months E78.00 - Pure hypercholesterolemia, unspecified Medications: New hydralazine 10 mg PO BID 60 tabs 3RF I10 - Essential (primary) hypertension rosuvastatin 5 mg PO DAILY 30 tabs 4RF E78.00 - Pure hypercholesterolemia, unspecified Changed From furosemide 40 mg (2 x 20 mg) PO BID 90 days 360 tabs 0RF To furosemide 20 mg PO BID 90 days 180 tabs 0RF Coding Level of Care Code Est Pt Level 4 (98325) Diagnoses TSH elevation R79.89 Pulmonary nodules R91.8 Hypercholesterolemia E78.00 Type 2 diabetes mellitus with hyperglycemia E11.65 Hypertension I10 Hypertension type: essential hypertension Obesity (BMI 30-39.9) E66.9 COPD (chronic obstructive pulmonary disease) J44.9
== END 2023-04-29 12:18 | disposition home or self-care (01) ==
PROVIDERS: PCP Internal Medicine; Visit Provider Internal Medicine
DX: R79.89 Other specified abnormal findings of blood chemistry (principal); R91.8 Other nonspecific abnormal finding of lung field; E78.00 Pure hypercholesterolemia, unspecified; E11.65 Type 2 diabetes mellitus with hyperglycemia; I10 Essential (primary) hypertension; E66.9 Obesity, unspecified; J44.9 Chronic obstructive pulmonary disease, unspecified
CPT/HCPCS: 99214

== ENCOUNTER 2023-08-07 09:49 | Outpatient (REF) | payer MEDICARE, SELFPAY ==
[2023-08-07 13:26] LABS: Estimated Average Glucose 134 mg/dL; Hemoglobin A1c % 6.3 % (<6.0)
[2023-08-07 14:00] LABS: Alanine Aminotransferase 13 U/L (0-31); Albumin Level 3.7 g/dL (3.5-5.0); Alkaline Phosphatase 86 U/L (39-117); Anion Gap 9 (12-20); Aspartate Amino Transferase 18 U/L (5-31); Bilirubin Total 0.4 mg/dL (0.0-1.0); Blood Urea Nitrogen 17 mg/dL (9-16); Carbon Dioxide 30 mmol/L (22-29); Chloride 105 mmol/L (96-108); Cholesterol 141 mg/dL (<200); Estimated Glomerular Filt Rate > 60; Free T4 (Free Thyroxine) 0.93 ng/dL (0.71-1.85); Glucose Random 109 mg/dL (60-115); HDL Cholesterol 46 mg/dL (>40); LDL Cholesterol Calculated 73 mg/dL (<100); Potassium 4.2 mmol/L (3.3-5.1); Sodium 140 mmol/L (135-145); Total Protein 7.5 g/dL (6.5-8.0); Triglycerides 114 mg/dL (<150)
[2023-08-07 14:29] LABS: Thyroid Stimulating Hormone 4.03 uIU/mL (0.32-4.0)
== END 2023-08-07 09:50 | disposition home or self-care (01) ==
LOC: HO.HMGCLDS 09:49
PROVIDERS: PCP Internal Medicine; Visit Provider Internal Medicine
DX: E78.00 Pure hypercholesterolemia, unspecified (principal); R79.89 Other specified abnormal findings of blood chemistry
CPT/HCPCS: 36415; 80053; 80061; 83036; 84439; 84443

== ENCOUNTER 2023-08-13 11:08 | Outpatient (AMB) | payer MEDICARE, SELFPAY ==
--- NOTE | 2023-08-13 11:17 | A.OFFPC_ITS ---
Vital Signs 08/13/23 11:19 08/13/23 11:24 Height 5 ft 4 in Weight 218 lb 2 oz BMI 37.4 BP 160/86 H 130/70 Blood Pressure Location Lt brachial Lt brachial Position Sitting Sitting Pulse 85 Pulse Source Pulse Oximeter Pulse Oximetry (%) 94 Oxygen Delivery Method Room Air Intake Visit Reasons: 3mon f/u Intake Note: Patient is here to follow up on DM, COPD, HTN. Quality Control Assistant Required: No Magnet Maker: Not Required per policy Accompanied by: Self / Same As Patient Allergies codeine [CODEINE] Allergy (Intermediate, Verified 08/13/23 11:18) TONGUE SWELLING amlodipine Adverse Reaction (Intermediate, Verified 08/13/23 11:18) leg swell Medication List - Last Reconciled 08/13/23 by Marizol Palacios MD albuterol sulfate 90 mcg/actuation 2 puffs inhalation Q4-6H PRN 30 days ascorbic acid (vitamin C) ER 1,000 mg PO Q12H cholecalciferol (vitamin D3) 50 mcg PO DAILY cyanocobalamin (vitamin B-12) 1,000 mcg PO DAILY fluticasone propionate 50 mcg/actuation 1 spray intranasal Q12H PRN furosemide 20 mg PO BID 90 days hydralazine 10 mg PO BID losartan 100 mg PO DAILY metoprolol succinate ER 100 mg PO DAILY 90 days [oxygen As directed] rosuvastatin 5 mg PO DAILY Tobacco use date assessed: 08/13/23 Fall risk assessment: No Falls in past year Last assessed Fall Risk: 08/13/23 Dental Screening Dental Screen Date: 08/13/23 Did you have a dental visit in the last 12 months?: No Did you have a dental problem in the last 6 months where you did not have access to dental care?: No Was dental information given to patient?: No (Dentures) HPI 3mon f/u HPI Details 78-year-old obese female with diabetes m ellitus COPD hypertension hypercholesterolemia coming in for follow-up. Last seen in April 2023 having pulmonary nodules but declined further workup Cologuard up-to-date COUNT INCLUDES [facility] Medical History (Updated 06/17/23 @ 11:57 by [employer]) History of COVID-19 (~09/2020) History of blood transfusion (~10/2020) Osteopenia Pulmonary nodule Emphysema lung Hypertension Anemia Pulmonary nodule Pulmonary embolism (~10/2020) Pneumonia due to COVID-19 virus (~09/2020) Peripheral vascular disease Cataract Hypercholesterolemia Obesity (BMI 30-39.9) Surgical History History of lung biopsy History of hand surgery (~2019) History of esophagogastroduodenoscopy (EGD) (~2020) History of colonoscopy (~2020) History of cataract surgery (~2019) Family History Father Prostate cancer Diabetes Mother Pneumonia Social History Household Members: Children Housing: House Do you presently have visiting nurse or other home services: No Alcohol intake: current Alcohol intake frequency: does not drink Alcohol type: wine Patient Tobacco Use Status: Former Tobacco user Tobacco use type: Cigarette Cigarette Packs Per Day: 1 e-Cigarette/Vaping Use: Never Used Second Hand Smoke Exposure: No service: No Current occupational status: retired Cognitive needs: No Hearing needs: No Vision needs: Yes Questionnaire Thrive Questionnaire Date Thrive assessed: 10/22/22 IGNACIO-7 AMB Questionnaire IGNACIO-7 Date IGNACIO - 7 assessed: 10/22/22 Source: Developed by Drs. Miguel Green, Olga Hinkle, Yuan Martinez and colleagues, with an educational cornelius from [employer]. Physical exam (Primary Care) Vital Signs: Last Vital Signs Pulse 85 08/13/23 11:19 BP 130/70 08/13/23 11:24 Pulse Ox 94 08/13/23 11:19 Oxygen Delivery Method Room Air 08/13/23 11:19 BMI result Body Mass Index 37.4 Tobacco/Smoking Status: Tobacco use Status Tobacco use date assessed 08/13/23 08/13/23 11:19 Patient Tobacco Use Status Former Tobacco user 08/13/23 11:19 Tobacco use type Cigarette 08/13/23 11:19 e-Cigarette/Vaping Use Never Used 08/13/23 11:19 Thrive Assessment: Date of Thrive Assessment Date Thrive assessed 10/22/22 08/13/23 11:19 Const General: alert; No acute distress Eyes Conjunctivae: conjunctivae normal Resp Auscultation: clear to auscultation bilaterally Cardio Rate: regular rate Rhythm: regular rhythm GI Inspection: Yes normal to inspection Extrem General: Yes normal to inspection and No edema Assessment and Plan Assessment & Plan (1) Obesity (BMI 30-39.9): Code(s): E66.9 - Obesity, unspecified Plan: Diet and exercise (2) Hypertension: Code(s): I10 - Essential (primary) hypertension Qualifiers: Hypertension type: essential hypertension Qualified Code(s): I10 - Essential (primary) hypertension Plan: Continue with blood pressure medication. Decrease salt intake and exercise patient is on hydralazine 10 mg twice a day losartan 100 mg once a day metoprolol 100 mg once a (3) Type 2 diabetes mellitus with hyperglycemia: Comment: [facility] Code(s): E11.65 - Type 2 diabetes mellitus with hyperglycemia Plan: Decrease the amount of carbohydrate intake, pasta, bread, rice and potatoes are all sugar and that is aside from all the sweet stuff, remember that fruits are good but they are Sweet also. Hemoglobin A1c goal of less than 7.0. Patient is controlled (4) Hypercholesterolemia: Comment: decline any med 03/2022 Code(s): E78.00 - Pure hypercholesterolemia, unspecified Plan: Avoid fried foods, chicken skin, eggs, butter margarine, pastries and meat. Be it pork or beef they have a lot of cholesterol LDL goal of less than 100 and triglyceride of less than 150 (5) TSH elevation: Code(s): R79.89 - Other specified abnormal findings of blood chemistry Plan: Continue to monitor (6) COPD (chronic obstructive pulmonary disease): Code(s): J44.9 - Chronic obstructive pulmonary disease, unspecified Plan: Continue with the inhaler on oxygen Orders: Orders Hemoglobin A1c 3 Months E11.65 - Type 2 diabetes mellitus with hyperglycemia Phosphorus 3 Months E11.65 - Type 2 diabetes mellitus with hyperglycemia Free T4 (Free Thyroxine) 3 Months E11.65 - Type 2 diabetes mellitus with hyperglycemia Thyroid Stimulating Hormone 3 Months E11.65 - Type 2 diabetes mellitus with hyperglycemia Comprehensive Met. Panel 3 Months E11.65 - Type 2 diabetes mellitus with hyperglycemia Complete Blood Count Auto Diff 3 Months E11.65 - Type 2 diabetes mellitus with hyperglycemia Magnesium 3 Months E11.65 - Type 2 diabetes mellitus with hyperglycemia Coding Level of Care Code Est Pt Level 4 (15066) Diagnoses Obesity (BMI 30-39.9) E66.9 Essential hypertension I10 Hypertension type: essential hypertension Type 2 diabetes mellitus with hyperglycemia E11.65 Hypercholesterolemia E78.00 TSH elevation R79.89 COPD (chronic obstructive pulmonary disease) J44.9
[2023-08-13 11:19] VITALS: BP 160/86; PULSE 85; O2SAT 94; BMI 37.4
[2023-08-13 11:24] VITALS: BP 130/70
== END 2023-08-13 12:02 | disposition home or self-care (01) ==
PROVIDERS: PCP Internal Medicine; Visit Provider Internal Medicine
DX: E11.65 Type 2 diabetes mellitus with hyperglycemia (principal); J44.9 Chronic obstructive pulmonary disease, unspecified; E66.9 Obesity, unspecified; Z68.37 Body mass index [BMI] 37.0-37.9, adult; I10 Essential (primary) hypertension; E78.00 Pure hypercholesterolemia, unspecified; R79.89 Other specified abnormal findings of blood chemistry
CPT/HCPCS: 99214

== ENCOUNTER 2023-09-23 08:35 | Outpatient (AMB) | payer MEDICARE, SELFPAY ==
[2023-09-23 08:38] VITALS: BP 130/66; PULSE 86; O2SAT 95; BMI 35.6
--- NOTE | 2023-09-23 08:38 | MHC.PC.OV ---
Vital Signs 09/23/23 08:38 Height 5 ft 4 in Weight 207 lb 8 oz BMI 35.6 BP 130/66 Blood Pressure Location Lt brachial Position Sitting Pulse 86 Pulse Source Pulse Oximeter Pulse Oximetry (%) 95 Oxygen Delivery Method Room Air Intake Visit Reasons: pain in lower back and pain in right leg Service Station Manager Required: No Accompanied by: Self / Same As Patient Allergies codeine [CODEINE] Allergy (Intermediate, Verified 09/23/23 08:39) TONGUE SWELLING amlodipine Adverse Reaction (Intermediate, Verified 09/23/23 08:39) leg swell Medication List - Last Reconciled 09/23/23 by Marizol Palacios MD albuterol sulfate 90 mcg/actuation 2 puffs inhalation Q4-6H PRN 30 days ascorbic acid (vitamin C) ER 1,000 mg PO Q12H cholecalciferol (vitamin D3) 50 mcg PO DAILY cyanocobalamin (vitamin B-12) 1,000 mcg PO DAILY fluticasone propionate 50 mcg/actuation 1 spray intranasal Q12H PRN furosemide 20 mg PO BID 90 days gabapentin 100 mg PO BEDTIME hydralazine 10 mg PO BID lidocaine 5% 1 appl topical BID PRN lidocaine 5% 2 patches topical DAILY losartan 100 mg PO DAILY metoprolol succinate ER 100 mg PO DAILY 90 days [oxygen As directed] rosuvastatin 5 mg PO DAILY Tobacco use date assessed: 08/13/23 Fall risk assessment: No Falls in past year Last assessed Fall Risk: 09/23/23 Dental Screening Dental Screen Date: 09/23/23 Did you have a dental visit in the last 12 months?: Yes Did you have a dental problem in the last 6 months where you did not have access to dental care?: No Was dental information given to patient?: Patient has dentist HPI pain in lower back and pain in right leg HPI Details 78-year-old obese female with controlled diabetes mellitus hypertension hypercholesterolemia COPD coming in for an acute problem.1 week ago woke up with pain lower back radiating to the R lower back then numb R hip area and then a rash [facility] Medical History (Updated 09/23/23 @ 08:54 by Marizol Palacios MD) History of COVID-19 (~09/2020) History of blood transfusion (~10/2020) Osteopenia Pulmonary nodule Emphysema lung Hypertension Anemia Pulmonary nodule Pulmonary embolism (~10/2020) Pneumonia due to COVID-19 virus (~09/2020) Peripheral vascular disease Cataract Hypercholesterolemia Obesity (BMI 30-39.9) Surgical History History of lung biopsy History of hand surgery (~2019) History of esophagogastroduodenoscopy (EGD) (~2020) History of colonoscopy (~2020) History of cataract surgery (~2019) Family History Father Prostate cancer Diabetes Mother Pneumonia Social History Household Members: Children Housing: House Do you presently have visiting nurse or other home services: No Alcohol intake: current Alcohol intake frequency: does not drink Alcohol type: wine Patient Tobacco Use Status: Former Tobacco user Tobacco use type: Cigarette Cigarette Packs Per Day: 1 e-Cigarette/Vaping Use: Never Used Second Hand Smoke Exposure: No service: No Current occupational status: retired Cognitive needs: No Hearing needs: No Vision needs: Yes Questionnaire PHQ-9 Over the last 2 weeks, how often have you been bothered by any of the following problems? 1. Little interest or pleasure in doing things: not at all 2. Feeling down, depressed, or hopeless: not at all 3. Trouble falling or staying asleep, or sleeping too much: not at all 4. Feeling tired or having little energy: not at all 5. Poor appetite or overeating: not at all 6. Feeling bad about yourself - or that you are a failure or have let yourself or your family down: not at all 7. Trouble concentrating on things, such as reading the newspaper or watching television: not at all 8. Moving or speaking so slowly that other people could have noticed. Or the opposite - being so fidgety or restless that you have been moving around a lot more than usual: not at all 9. Thoughts that you would be better off or of hurting yourself in some way: not at all Total score: 0 Depression Screening Interpretation: Negative Depression Screening Done: Yes Source: Developed by Drs. Miguel Green, Olga Hinkle, Yuan Martinez and colleagues, with an educational cornelius from [employer] Thrive Questionnaire Date Thrive assessed: 10/22/22 IGNACIO-7 AMB Questionnaire IGNACIO-7 Date IGNACIO - 7 assessed: 10/22/22 Source: Developed by Drs. Miguel Green, Olga Hinkle, Yuan Martinez and colleagues, with an educational cornelius from [employer]. Physical exam (Primary Care) Vital Signs: Last Vital Signs Pulse 86 09/23/23 08:38 BP 130/66 09/23/23 08:38 Pulse Ox 95 09/23/23 08:38 Oxygen Delivery Method Room Air 09/23/23 08:38 BMI result Body Mass Index 35.6 Tobacco/Smoking Status: Tobacco use Status Tobacco use date assessed 08/13/23 09/23/23 08:39 Patient Tobacco Use Status Former Tobacco user 09/23/23 08:39 Tobacco use type Cigarette 09/23/23 08:39 e-Cigarette/Vaping Use Never Used 09/23/23 08:39 PHQ-9: PHQ-9 Score PHQ-9: Total score 0 09/23/23 08:47 Depression Screening Interpretation: Negative Thrive Assessment: Date of Thrive Assessment Date Thrive assessed 10/22/22 09/23/23 08:39 Const General: alert; No acute distress Eyes Conjunctivae: conjunctivae normal Resp Auscultation: clear to auscultation bilaterally Cardio Rate: regular rate Rhythm: regular rhythm GI Inspection: Yes normal to inspection Back/Spine/Pelvis Other: RLback papulovesicular erythematous rash cluster to the R thigh Extrem General: Yes normal to inspection and No edema Assessment and Plan Assessment & Plan (1) Type 2 diabetes mellitus with hyperglycemia: Comment: [facility] Code(s): E11.65 - Type 2 diabetes mellitus with hyperglycemia Plan: Decrease the amount of carbohydrate intake, pasta, bread, rice and potatoes are all sugar and that is aside from all the sweet stuff, remember that fruits are good but they are Sweet also. Hemoglobin A1c goal of less than 7.0 patient on diet control (2) Obesity (BMI 30-39.9): Code(s): E66.9 - Obesity, unspecified Plan: Diet and exercise (3) Diabetic nephropathy: Code(s): E11.21 - Type 2 diabetes mellitus with diabetic nephropathy Plan: Continue to control diabetes, hypertension and hypercholesterolemia (4) Shingles: Comment: R lower back to the R groin Code(s): B02.9 - Zoster without complications Plan: Is no direct contact with people who have not been exposed to a shingles or chickenpox. Discussed that this is self-limited but the pain may last. Pain medications prescription sent in Medications: New gabapentin 100 mg PO BEDTIME 30 caps 0RF B02.9 - Zoster without complications lidocaine 5% 1 appl topical BID PRN 35.44 grams 1RF pain B02.9 - Zoster without complications lidocaine 5% leave on most painful area for up to 12 hrs 2 patches topical DAILY 30 ea 0RF B02.9 - Zoster without complications Coding Level of Care Code Est Pt Level 4 (73022) Diagnoses Type 2 diabetes mellitus with hyperglycemia E11.65 Obesity (BMI 30-39.9) E66.9 Diabetic nephropathy E11.21 Shingles B02.9
== END 2023-09-23 09:02 | disposition home or self-care (01) ==
PROVIDERS: PCP Internal Medicine; Visit Provider Internal Medicine
DX: E11.65 Type 2 diabetes mellitus with hyperglycemia (principal); E11.21 Type 2 diabetes mellitus with diabetic nephropathy; Z68.35 Body mass index [BMI] 35.0-35.9, adult; E66.9 Obesity, unspecified; B02.9 Zoster without complications
CPT/HCPCS: 99214

== ENCOUNTER 2023-12-05 12:38 | Outpatient (AMB) | payer MEDICARE, SELFPAY ==
[2023-12-05 12:42] VITALS: BP 136/72; PULSE 82; O2SAT 96; BMI 35.2
--- NOTE | 2023-12-05 12:42 | MHC.PC.OV ---
Vital Signs 12/05/23 12:42 Height 5 ft 4 in Weight 205 lb 0.4 oz BMI 35.2 BP 136/72 Blood Pressure Location Lt brachial Position Sitting Pulse 82 Pulse Source Pulse Oximeter Pulse Oximetry (%) 96 Oxygen Delivery Method Room Air Intake Visit Reasons: DM Intake Note: Patient is here to follow up on DM. 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: No Allergies codeine [CODEINE] Allergy (Intermediate, Verified 12/05/23 12:42) TONGUE SWELLING amlodipine Adverse Reaction (Intermediate, Verified 12/05/23 12:42) leg swell Medication List - Last Reconciled 12/05/23 by Marizol Palacios MD albuterol sulfate 90 mcg/actuation 2 puffs inhalation Q4-6H PRN 30 days ascorbic acid (vitamin C) ER 1,000 mg PO Q12H cholecalciferol (vitamin D3) 50 mcg PO DAILY cyanocobalamin (vitamin B-12) 1,000 mcg PO DAILY fluticasone propionate 50 mcg/actuation 1 spray intranasal Q12H PRN furosemide 20 mg PO BID 90 days gabapentin 200 mg (2 x 100 mg) PO BEDTIME 90 days hydralazine 10 mg PO BID lidocaine 5% 1 appl topical BID PRN lidocaine 5% 2 patches topical DAILY losartan 100 mg PO DAILY metoprolol succinate ER 100 mg PO DAILY 90 days [oxygen As directed] rosuvastatin 5 mg PO DAILY Tobacco use date assessed: 12/05/23 Fall risk assessment: No Falls in past year Last assessed Fall Risk: 12/05/23 Dental Screening Dental Screen Date: 12/05/23 Did you have a dental visit in the last 12 months?: No Did you have a dental problem in the last 6 months where you did not have access to dental care?: No HPI DM HPI Details 78-year-old obese female with controlled diabetes mellitus hypertension hypercholesterolemia COPD coming in for follow-up. Last seen had shingles in September 2023. Patient is here for follow-up. [facility] Medical History (Updated 09/23/23 @ 08:54 by Marizol Palacios MD) History of COVID-19 (~09/2020) History of blood transfusion (~10/2020) Osteopenia Pulmonary nodule Emphysema lung Hypertension Anemia Pulmonary nodule Pulmonary embolism (~10/2020) Pneumonia due to COVID-19 virus (~09/2020) Peripheral vascular disease Cataract Hypercholesterolemia Obesity (BMI 30-39.9) Surgical History History of lung biopsy History of hand surgery (~2019) History of esophagogastroduodenoscopy (EGD) (~2020) History of colonoscopy (~2020) History of cataract surgery (~2019) Family History Father Prostate cancer Diabetes Mother Pneumonia Social History Household Members: Children Housing: House Do you presently have visiting nurse or other home services: No Alcohol intake: current Alcohol intake frequency: does not drink Alcohol type: wine Patient Tobacco Use Status: Former Tobacco user Tobacco use type: Cigarette Cigarette Packs Per Day: 1 e-Cigarette/Vaping Use: Never Used Second Hand Smoke Exposure: No service: No Current occupational status: retired Cognitive needs: No Hearing needs: No Vision needs: Yes Questionnaire PHQ-9 Over the last 2 weeks, how often have you been bothered by any of the following problems? 1. Little interest or pleasure in doing things: not at all 2. Feeling down, depressed, or hopeless: not at all 3. Trouble falling or staying asleep, or sleeping too much: not at all 4. Feeling tired or having little energy: not at all 5. Poor appetite or overeating: not at all 6. Feeling bad about yourself - or that you are a failure or have let yourself or your family down: not at all 7. Trouble concentrating on things, such as reading the newspaper or watching television: not at all 8. Moving or speaking so slowly that other people could have noticed. Or the opposite - being so fidgety or restless that you have been moving around a lot more than usual: not at all 9. Thoughts that you would be better off or of hurting yourself in some way: not at all Total score: 0 Depression Screening Interpretation: Negative Depression Screening Done: Yes Source: Developed by Drs. Miguel Green, Olga Hinkle, Yuan Martinez and colleagues, with an educational cornelius from [employer]. Thrive Questionnaire Date Thrive assessed: 12/05/23 I am a: Patient What is your living situation today?: I have a steady place to live Within the past 12 months, did the food you bought not last and you didn't have the money to get more?: Never true Within the past 12 months, did you worry whether your food would run out before you got money to buy more?: Never true Do you have trouble paying for medicines?: No Do you have trouble getting transportation to medical appointments?: No Do you have trouble paying your heating and electricity bill?: No Do you have trouble taking care of your child, family member or friend?: No Do you have trouble with day-to-day activities such as bathing, preparing meals, shopping, managing finances, etc.?: No Are you currently unemployed and looking for a job?: No Are you interested in more education?: No Please select the resources that you would like help with: None THRIVE Score: 0 AUDIT C Alcohol Use Questionnaire (AUDIT-C) 1. How often do you have a drink containing alcohol?: Monthly or less 2. How many drinks containing alcohol do you have on a typical day when you are drinking?: 1 or 2 3. How often do you have six or more drinks on one occasion?: Never Total Score: 1 IGNACIO-7 AMB Questionnaire IGNACIO-7 Date IGNACIO - 7 assessed: 12/05/23 Feeling nervous, anxious, or on edge: 0 = Not at all Not being able to stop or control worryin = Not at all Worrying too much about different things: 0 = Not at all Trouble relaxin = Not at all Being so restless that it is hard to sit still: 0 = Not at all Becoming easily annoyed or irritable: 0 = Not at all Feeling afraid as if something awful might happen: 0 = Not at all Total IGNACIO-7 score (0-4 normal; 5-9 mild; 10-14 moderate; 15-21 severe): 0 Source: Developed by Drs. Miguel Green, Olga Hinkle, Yuan Martinez and colleagues, with an educational cornelius from [employer]. Physical exam (Primary Care) Vital Signs: Last Vital Signs Pulse 82 12/05/23 12:42 BP 136/72 12/05/23 12:42 Pulse Ox 96 12/05/23 12:42 Oxygen Delivery Method Room Air 12/05/23 12:42 BMI result Body Mass Index 35.2 Tobacco/Smoking Status: Tobacco use Status Tobacco use date assessed 12/05/23 12/05/23 12:52 Patient Tobacco Use Status Former Tobacco user 12/05/23 12:52 Tobacco use type Cigarette 12/05/23 12:52 e-Cigarette/Vaping Use Never Used 12/05/23 12:52 PHQ-9: PHQ-9 Score PHQ-9: Total score 0 12/05/23 12:56 Depression Screening Interpretation: Negative Thrive Assessment: Date of Thrive Assessment Date Thrive assessed 12/05/23 12/05/23 12:52 Const General: alert; No acute distress Eyes Conjunctivae: conjunctivae normal Resp Auscultation: clear to auscultation bilaterally Cardio Rate: regular rate Rhythm: regular rhythm GI Inspection: Yes normal to inspection Extrem General: Yes normal to inspection and No edema Results AMB Hemoglobin A1c AMB Hemoglobin A1c 7.4 % Last Edit by COTY Manuel on 12/05/23 12:57 Assessment and Plan Assessment & Plan (1) Type 2 diabetes mellitus with hyperglycemia: Comment: [facility] Code(s): E11.65 - Type 2 diabetes mellitus with hyperglycemia Plan: Decrease the amount of carbohydrate intake, pasta, bread, rice and potatoes are all sugar and that is aside from all the sweet stuff, remember that fruits are good but they are Sweet also. Hemoglobin A1c goal of less than 7.0 presently on diet control. knows eating pop tarts and knows to stop this (2) Hypertension: Code(s): I10 - Essential (primary) hypertension Qualifiers: Hypertension type: essential hypertension Qualified Code(s): I10 - Essential (primary) hypertension Plan: Continue with blood pressure medication. Decrease salt intake and exercise metoprolol 100 mg once a day losartan 100 mg once a day hydralazine 10 mg twice a day (3) Obesity (BMI 30-39.9): Code(s): E66.9 - Obesity, unspecified Plan: Diet and exercise (4) Hypercholesterolemia: Comment: decline any med 03/2022 Code(s): E78.00 - Pure hypercholesterolemia, unspecified Plan: Avoid fried foods, chicken skin, eggs, butter margarine, pastries and meat. Be it pork or beef they have a lot of cholesterol presently on rosuvastatin 5 mg once a day August last blood work 73 goal is less than 100 and triglyceride of less than 150 Orders: Orders AMB Hemoglobin A1c Today E11.65 - Type 2 diabetes mellitus with hyperglycemia Medications: Changed From gabapentin 100 mg PO BEDTIME 90 caps 1RF B02.9 - Zoster without complications To gabapentin 200 mg (2 x 100 mg) PO BEDTIME 90 days 180 caps 1RF B02.9 - Zoster without complications Coding Level of Care Code Est Pt Level 4 (50840) Diagnoses Type 2 diabetes mellitus with hyperglycemia E11.65 Essential hypertension I10 Hypertension type: essential hypertension Obesity (BMI 30-39.9) E66.9 Hypercholesterolemia E78.00
== END 2023-12-05 13:05 | disposition home or self-care (01) ==
PROVIDERS: PCP Internal Medicine; Visit Provider Internal Medicine
DX: E11.65 Type 2 diabetes mellitus with hyperglycemia (principal); I10 Essential (primary) hypertension; E66.9 Obesity, unspecified; Z68.35 Body mass index [BMI] 35.0-35.9, adult; E78.00 Pure hypercholesterolemia, unspecified
CPT/HCPCS: 83036; 99214

== ENCOUNTER 2024-01-30 13:46 | Outpatient (REF) | payer MEDICARE, SELFPAY ==
--- NOTE | ~2024-01-30 | CT_ITS ---
EXAMINATION: CT CHEST WITHOUT CONTRAST CLINICAL INFORMATION: Follow-up pulmonary nodules. COMPARISON: 02/12/2023 TECHNIQUE: Multidetector volumetric CT imaging of the chest was done. Axial MIP volume rendering provided. Sagittal and coronal reformatted images were obtained. This CT examination was performed using dose optimization techniques as appropriate, variously including the following: *Automated exposure control *Adjustment of mA and/or kV according to patient size (this includes techniques or standardized protocols for targeted exams where dose is matched to indication/reason for exam; i.e. extremities or head) *Use of iterative reconstruction technique DLP: 191 mGy-cm FINDINGS: LUNGS AND PLEURA: Severe centrilobular emphysema. Bronchial osei are diffusely thickened. No pleural effusion. A small linear opacity in the anterolateral right lung apex could represent focal scarring or minimal atelectasis. PULMONARY NODULES: Again noted are multiple bilateral pulmonary nodules, including the following: * Irregular, solid, spiculated 2.5 x 2.2 cm lesion in the anterior segment of the right upper lobe in contact with the minor fissure; it was 0.4 cm on 03/12/2022 and 0.7 cm on 02/12/2023. * 1.2 x 1 cm lobulated solid nodule of the superior segment of the right lower lobe was 0.5 x 0.9 cm on 03/12/2022 and 0.4 x 0.6 cm on 02/12/2023. * A spiculated nodule of the posterior left upper lobe projecting just anterior to the proximal major fissure is 1.3 x 1.1 cm, compared to 1.3 x 1 cm on 03/12/2022 and 1.3 x 1.1 cm on 02/12/2023. * Lobulated nodule in contact with pleura in the superior segment of the left lower lobe is 1.5 x 1.7 cm, compared to 1.3 x 1.1 cm on 03/12/2022 and 1.5 x 1.4 cm on 02/12/2023. This nodule underwent CT-guided percutaneous biopsy on 05/15/2021. CARDIOVASCULAR: The heart size is normal. No pericardial effusion. Pulmonary arteries are normal in size. There is atherosclerotic calcification of the thoracic aorta without aneurysm. CORONARY ARTERY CALCIFICATION: Multivessel coronary artery atherosclerotic calcification is present. MEDIASTINUM AND LOWER NECK: No mediastinal mass. The esophagus and thyroid gland are unremarkable. LYMPHATICS: No pathologic sized axillary or hilar lymph nodes. A lymph node in the precarinal region is 1 cm short axis dimension, previously 0.9 cm. UPPER ABDOMEN: Large body habitus. Adrenal glands are unremarkable. No acute or suspicious abnormality in the visualized portion of the upper abdomen. SKELETAL AND CHEST WALL: No chest wall mass. Chronic multilevel degenerative arthropathy of the visualized lower cervical and thoracic spine. Hemangioma of the L2 vertebral body. CT/CT chest wo IV con IMPRESSION: * Severe pulmonary emphysema. * Again noted are the bilateral pulmonary nodules. These are nonspecific and could represent neoplastic or inflammatory nodules. The nodules of the anterior segment of the right upper lobe and superior segment of the right lower lobe have significantly increased in size whereas the left lung nodules remain similar in size compared to 02/12/2023. No pleural effusion or other significant change. If deemed clinically appropriate, obtain tissue sampling of at least one of the enlarging right lung nodules.
== END 2024-01-30 13:47 | disposition home or self-care (01) ==
LOC: HO.CT 13:46
PROVIDERS: PCP Internal Medicine; Visit Provider Internal Medicine Pulmonary Disease
DX: R91.8 Other nonspecific abnormal finding of lung field (principal)
CPT/HCPCS: 71250

== ENCOUNTER 2024-02-05 10:47 | Outpatient (AMB) | payer MEDICARE, SELFPAY ==
[2024-02-05 10:48] VITALS: BP 134/62; PULSE 92; O2SAT 93; BMI 35.2
--- NOTE | 2024-02-05 10:48 | MHC.OFFVIS ---
Vital Signs 02/05/24 10:48 Height 5 ft 4 in Weight 205 lb 0.478 oz BMI 35.2 BP 134/62 Blood Pressure Location Rt brachial Position Sitting Pulse 92 Pulse Source Doppler Pulse Oximetry (%) 93 Oxygen Delivery Method Room Air Intake Visit Reasons: pulm nodules Allergies codeine [CODEINE] Allergy (Intermediate, Verified 02/05/24 10:52) TONGUE SWELLING amlodipine Adverse Reaction (Intermediate, Verified 02/05/24 10:52) leg swell HPI HPI pulm nodules: Details: 78-year-old lady, former 30+ pack-year smoker, quit 20 years prior with underlying history of COVID-19 and September of 2020, discharged on supplemental oxygen, COVID-19 related pulmonary emboli, followed for pulmonary nodules, COPD, and COVID-19 provoked pulmonary emboli.? Her PET-CT showed two PET positive left-sided nodules.? Patient has had 1 out of 2 biopsied with results showing no malignancy. Patient did not want to proceed with a biopsy of the 2nd nodule.? Patient has been explained that delay in diagnosis can lead to development of metastatic lung cancer with early .?She continues on albuterol MDI. She denies recent bronchitic exacerbation. Patient had another follow-up CT chest that shows growing bilateral pulmonary nodules now up to 2 2 cm on the right and 1.6 cm on the left and a new right sided nodule that a deemed to be malignant, unless proven otherwise. Patient continues to stoutly refuse to undergo biopsy and she has not interested in possible treatment modalities including chemotherapy or radiation, understanding that no diagnosis or treatment will lead to early . [facility] Medical History (Updated 02/05/24 @ 11:39 by Andrea Victor MD) History of COVID-19 (~09/2020) History of blood transfusion (~10/2020) Osteopenia Pulmonary nodule Emphysema lung Hypertension Anemia Pulmonary nodule Pulmonary embolism (~10/2020) Pneumonia due to COVID-19 virus (~09/2020) Peripheral vascular disease Cataract Hypercholesterolemia Obesity (BMI 30-39.9) Surgical History History of lung biopsy History of hand surgery (~2019) History of esophagogastroduodenoscopy (EGD) (~2020) History of colonoscopy (~2020) History of cataract surgery (~2019) Family History Father Prostate cancer Diabetes Mother Pneumonia Social History Household Members: Children Housing: House Do you presently have visiting nurse or other home services: No Alcohol intake: current Alcohol intake frequency: does not drink Alcohol type: wine Patient Tobacco Use Status: Former Tobacco user Tobacco use type: Cigarette Cigarette Packs Per Day: 1 e-Cigarette/Vaping Use: Never Used Second Hand Smoke Exposure: No service: No Current occupational status: retired Cognitive needs: No Hearing needs: No Vision needs: Yes Review of Systems Const Denies daytime sleepiness, Denies excessive sweating, Denies fatigue, Denies fever(s), Denies lethargy, Denies malaise, Denies night sweats, Denies snoring and Denies weight loss Eyes Denies blurry vision and Denies itchy eyes ENT Denies nasal congestion, Denies post nasal drip, Denies sinus pain, Denies sinus pressure and Denies other ( Thrush) Card Denies chest pain, Denies pedal edema, Denies dyspnea, Denies orthopnea and Denies paroxysmal nocturnal dyspnea Resp Denies cough, Denies hemoptysis, Denies excessive phlegm production, Denies dyspnea, Denies snoring and Denies wheezing GI Denies abdominal pain and Denies heartburn Musc Denies myalgias, Denies arthralgias and Denies joint swelling Skin/Breast Denies rash Neuro Denies memory loss and Denies seizure-like activity Psych Denies abnormal sleep pattern, Denies anxiety and Denies memory loss Endo Denies excessive sweating, Denies fatigue and Denies heat intolerance Jacob/Lymph Denies easy bruising Aller/Immun Denies itchy eyes, Denies seasonal rhinorrhea and Denies wheezing Physical Exam Vital Signs: Last Vital Signs Pulse 92 02/05/24 10:48 BP 134/62 02/05/24 10:48 Pulse Ox 93 02/05/24 10:48 Oxygen Delivery Method Room Air 02/05/24 10:48 BMI result Body Mass Index 35.2 Const General: no acute distress and alert Nutritional Appearance: obese Orientation/consciousness: Other orientation findings ( oriented) HEENT Head: Yes atraumatic Eyes General: appearance normal, both eyes and all related structures Sclerae: sclerae normal EOM: EOMs intact bilaterally Neck Neck: Yes supple Lymphatic: no lymphadenopathy noted Resp Effort & Inspection: normal respiratory effort and no use of accessory muscles Auscultation: clear to auscultation bilaterally Cardio Rate: regular rate Rhythm: regular rhythm Heart sounds: no gallops, no murmurs and no rubs Skin General skin exam: other ( warm) Extrem General: No clubbing, No cyanosis and No edema Assessment & Plan Assessment & Plan (1) COPD (chronic obstructive pulmonary disease): Code(s): J44.9 - Chronic obstructive pulmonary disease, unspecified Category: Medical Plan: Well controlled on as needed albuterol MDI/nebs. Continue current regimen. (2) Lung cancer: Code(s): C34.90 - Malignant neoplasm of unspecified part of unspecified bronchus or lung Category: Medical Plan: Growing bilateral pulmonary nodules and new right-sided nodule up to 2.2 cm, malignant unless proven otherwise. Patient continues to refuse any further cancer workup or treatment, understanding that this refusal/delay will lead to her early . Coding Level of Care Code Est Pt Level 5 (75366) Diagnoses COPD (chronic obstructive pulmonary disease) J44.9 Lung cancer C34.90
== END 2024-02-05 11:23 | disposition home or self-care (01) ==
PROVIDERS: PCP Internal Medicine; Visit Provider Internal Medicine Pulmonary Disease
DX: J44.9 Chronic obstructive pulmonary disease, unspecified (principal); C34.90 Malignant neoplasm of unspecified part of unspecified bronchus or lung
CPT/HCPCS: 99214

== ENCOUNTER → 2024-02-05 10:47 | Outpatient (BNVA) | payer MEDICARE, SELFPAY | PROVIDERS: PCP Internal Medicine; Visit Provider Internal Medicine Pulmonary Disease | DX: J44.9 Chronic obstructive pulmonary disease, unspecified (principal); C34.90 Malignant neoplasm of unspecified part of unspecified bronchus or lung | CPT/HCPCS: 99212 ==

== ENCOUNTER 2024-03-31 09:49 | Outpatient (REF) | payer MEDICARE, SELFPAY ==
[2024-03-31 11:09] LABS: MANUAL DIFF FLAG NO
[2024-03-31 11:31] LABS: Basophils Absolute Auto 0.1 X10*3/uL (0.0-0.2); Basophils Percent Auto 0.5 % (0-2); Eosinophils Absolute Auto 0.2 X10*3/uL (0.0-0.4); Eosinophils Percent Auto 2.1 % (0-4); Hematocrit 37.4 % (37.0-47.0); Hemoglobin 12.6 g/dl (12.0-16.0); Imm Gran Abs Auto 0.04 X10*3/uL (0.00-0.03); Imm Gran Pct Auto 0.4 % (0.0-0.4); Lymphocytes Absolute Auto 2.1 X10*3/uL (1.2-4.9); Lymphocytes Percent Auto 21.3 % (20-40); Mean Corpuscular HGB Conc 33.7 g/dl (31.0-35.0); Mean Corpuscular Volume 86.2 fL (80.0-98.0); Mean Platelet Volume 11.3 fL (9.4-12.3); Monocytes Absolute Auto 0.7 X10*3/uL (0.1-1.2); Monocytes Percent Auto 6.9 % (2-11); Neutrophils Absolute Auto 6.7 x10*3/uL (2.0-8.3); Neutrophils Percent Auto 68.8 % (45-73); Platelet Count 270 X10*3/uL (160-400); Red Blood Count 4.34 X10*6/uL (4.20-5.50); Red Cell Distribution Width 13.6 % (11.0-16.0); White Blood Count 9.8 X10*3/uL (4.8-10.8)
[2024-03-31 11:42] LABS: Estimated Average Glucose 283 mg/dL; Hemoglobin A1c % 11.5 % (<6.0)
[2024-03-31 12:02] LABS: Alanine Aminotransferase 9 U/L (0-31); Albumin Level 3.4 g/dL (3.5-5.0); Alkaline Phosphatase 119 U/L (39-117); Anion Gap 12 (12-20); Aspartate Amino Transferase 11 U/L (5-31); Bilirubin Total 0.4 mg/dL (0.0-1.0); Blood Urea Nitrogen 15 mg/dL (9-16); Calcium 8.9 mg/dL (8.4-10.2); Carbon Dioxide 29 mmol/L (22-29); Chloride 101 mmol/L (96-108); Estimated Glomerular Filt Rate > 60; Glucose Random 319 mg/dL (60-115); Magnesium 1.6 mg/dL (1.6-2.6); Phosphorus 3.2 mg/dL (2.7-4.5); Potassium 4.1 mmol/L (3.3-5.1); Sodium 138 mmol/L (135-145); Total Protein 7.2 g/dL (6.5-8.0)
[2024-03-31 12:10] LABS: Thyroid Stimulating Hormone 3.29 uIU/mL (0.32-4.0)
== END 2024-03-31 09:50 | disposition home or self-care (01) ==
LOC: HO.HMGCLDS 09:49
PROVIDERS: PCP Internal Medicine; Visit Provider Internal Medicine
DX: E11.65 Type 2 diabetes mellitus with hyperglycemia (principal)
CPT/HCPCS: 36415; 80053; 83036; 83735; 84100; 84439; 84443; 85025

== ENCOUNTER 2024-04-05 10:59 | Outpatient (AMB) | payer MEDICARE, SELFPAY ==
[2024-04-05 11:17] VITALS: BP 140/70; PULSE 81; O2SAT 96; BMI 33.3
--- NOTE | 2024-04-05 11:17 | MHC.PC.OV ---
Vital Signs 04/05/24 11:17 Height 5 ft 4 in Weight 194 lb BMI 33.3 BP 140/70 H Blood Pressure Location Lt brachial Position Sitting Pulse 81 Pulse Source Pulse Oximeter Pulse Oximetry (%) 96 Oxygen Delivery Method Room Air Intake Visit Reasons: DM - see comments Allergies codeine [CODEINE] Allergy (Intermediate, Verified 04/05/24 11:18) TONGUE SWELLING amlodipine Adverse Reaction (Intermediate, Verified 04/05/24 11:18) leg swell Tobacco use date assessed: 12/05/23 Fall risk assessment: No Falls in past year Last assessed Fall Risk: 04/05/24 Dental Screening Dental Screen Date: 12/05/23 HPI DM - see comments HPI Details 78-year-old obese female(noted 11 lb weight loss) with diabetes mellitus hypertension hypercholesterolemia last seen in 12/24/2023. Review of the notes since pulmonary 30 pack years smoking quitting 20 years ago discharged on supplemental oxygen had COVID-19 related pulmonary emboli noted pulmonary nodules. PET positive left-sided nodules biopsy no malignancy repeat CT scan shows growing bilateral pulmonary nodules now 2 cm new right-sided nodule question of malignancy refused biopsy. states wants to wait insurance 07/2024.states not eating [facility] Medical History (Updated 02/12/24 @ 12:48 by Marizol Palacios MD) History of COVID-19 (~09/2020) History of blood transfusion (~10/2020) Osteopenia Pulmonary nodule Emphysema lung Hypertension Anemia Pulmonary nodule Pulmonary embolism (~10/2020) Pneumonia due to COVID-19 virus (~09/2020) Peripheral vascular disease Cataract Hypercholesterolemia Obesity (BMI 30-39.9) Surgical History History of lung biopsy History of hand surgery (~2019) History of esophagogastroduodenoscopy (EGD) (~2020) History of colonoscopy (~2020) History of cataract surgery (~2019) Family History Father Prostate cancer Diabetes Mother Pneumonia Social History Household Members: Children Housing: House Do you presently have visiting nurse or other home services: No Alcohol intake: current Alcohol intake frequency: does not drink Alcohol type: wine Patient Tobacco Use Status: Former Tobacco user Tobacco use type: Cigarette Cigarette Packs Per Day: 1 e-Cigarette/Vaping Use: Never Used Second Hand Smoke Exposure: No service: No Current occupational status: retired Cognitive needs: No Hearing needs: No Vision needs: Yes Questionnaire PHQ-9 Over the last 2 weeks, how often have you been bothered by any of the following problems? 1. Little interest or pleasure in doing things: not at all 2. Feeling down, depressed, or hopeless: not at all 3. Trouble falling or staying asleep, or sleeping too much: not at all 4. Feeling tired or having little energy: not at all 5. Poor appetite or overeating: not at all 6. Feeling bad about yourself - or that you are a failure or have let yourself or your family down: not at all 7. Trouble concentrating on things, such as reading the newspaper or watching television: not at all 8. Moving or speaking so slowly that other people could have noticed. Or the opposite - being so fidgety or restless that you have been moving around a lot more than usual: not at all 9. Thoughts that you would be better off or of hurting yourself in some way: not at all Total score: 0 Depression Screening Interpretation: Negative Depression Screening Done: Yes Source: Developed by Drs. Miguel Green, Yuan Mueller and colleagues, with an educational cornelius from [place]. Thrive Questionnaire Date Thrive assessed: 12/05/23 AUDIT C Alcohol Use Questionnaire (AUDIT-C) 1. How often do you have a drink containing alcohol?: Monthly or less 2. How many drinks containing alcohol do you have on a typical day when you are drinking?: 1 or 2 3. How often do you have six or more drinks on one occasion?: Never Total Score: 1 IGNACIO-7 AMB Questionnaire IGNACIO-7 Date IGNACIO - 7 assessed: 12/05/23 Source: Developed by Drs. Miguel Green, Yuan Mueller and colleagues, with an educational cornelius from [place]. Physical exam (Primary Care) Vital Signs: Last Vital Signs Pulse 81 04/05/24 11:17 BP 140/70 H 04/05/24 11:17 Pulse Ox 96 04/05/24 11:17 Oxygen Delivery Method Room Air 04/05/24 11:17 BMI result Body Mass Index 33.3 Tobacco/Smoking Status: Tobacco use Status Tobacco use date assessed 12/05/23 04/05/24 11:19 Patient Tobacco Use Status Former Tobacco user 04/05/24 11:19 Tobacco use type Cigarette 04/05/24 11:19 e-Cigarette/Vaping Use Never Used 04/05/24 11:19 PHQ-9: PHQ-9 Score PHQ-9: Total score 0 04/05/24 11:19 Depression Screening Interpretation: Negative Thrive Assessment: Date of Thrive Assessment Date Thrive assessed 12/05/23 04/05/24 11:19 Const General: alert; No acute distress Eyes Conjunctivae: conjunctivae normal Resp Auscultation: clear to auscultation bilaterally Cardio Rate: regular rate Rhythm: regular rhythm GI Inspection: Yes normal to inspection Extrem General: Yes normal to inspection and No edema Assessment and Plan Assessment & Plan (1) Type 2 diabetes mellitus with hyperglycemia: Comment: [facility] Code(s): E11.65 - Type 2 diabetes mellitus with hyperglycemia Plan: Decrease the amount of carbohydrate intake, pasta, bread, rice and potatoes are all sugar and that is aside from all the sweet stuff, remember that fruits are good but they are Sweet also. Patient presently not on any medication. Very high hemoglobin A1c (2) Hypercholesterolemia: Comment: decline any med 03/2022 Code(s): E78.00 - Pure hypercholesterolemia, unspecified Plan: Avoid fried foods, chicken skin, eggs, butter margarine, pastries and meat. Be it pork or beef they have a lot of cholesterol 08/25/2023 last blood work on rosuvastatin 5 mg once a day (3) Hypertension: Code(s): I10 - Essential (primary) hypertension Qualifiers: Hypertension type: essential hypertension Qualified Code(s): I10 - Essential (primary) hypertension Plan: Continue with blood pressure medication. Decrease salt intake and exercise on hydralazine 10 mg twice a day losartan 100 mg once a day metoprolol 100 mg once a day (4) Obesity (BMI 30-39.9): Code(s): E66.9 - Obesity, unspecified Plan: Diet and exercise (5) Pulmonary nodules: Comment: 02/2023 Code(s): R91.8 - Other nonspecific abnormal finding of lung field Plan: Patient has seen Pulmonary and concern about malignancy but patient declined biopsy. (6) COPD (chronic obstructive pulmonary disease): Code(s): J44.9 - Chronic obstructive pulmonary disease, unspecified Plan: Continue with albuterol inhaler Medications: New metformin 500 mg PO BIDWMEAL 60 tabs 3RF E11.65 - Type 2 diabetes mellitus with hyperglycemia Refilled metoprolol succinate ER 100 mg PO DAILY 90 days 90 tabs 2RF I10 - Essential (primary) hypertension Coding Level of Care Code Est Pt Level 4 (71991) Complex EM visit Add On G2211 Diagnoses Type 2 diabetes mellitus with hyperglycemia E11.65 Hypercholesterolemia E78.00 Essential hypertension I10 Hypertension type: essential hypertension Obesity (BMI 30-39.9) E66.9 Pulmonary nodules R91.8 COPD (chronic obstructive pulmonary disease) J44.9
== END 2024-04-05 12:10 | disposition home or self-care (01) ==
PROVIDERS: PCP Internal Medicine; Visit Provider Internal Medicine
DX: E11.65 Type 2 diabetes mellitus with hyperglycemia (principal); J44.9 Chronic obstructive pulmonary disease, unspecified; E66.9 Obesity, unspecified; Z68.33 Body mass index [BMI] 33.0-33.9, adult; E78.00 Pure hypercholesterolemia, unspecified; I10 Essential (primary) hypertension; R91.8 Other nonspecific abnormal finding of lung field
CPT/HCPCS: 99214; G2211

== ENCOUNTER 2024-07-13 10:47 | Outpatient (AMB) | payer MEDICARE, SELFPAY ==
[2024-07-13 10:50] VITALS: BP 146/64; PULSE 84; O2SAT 95; BMI 31.8
--- NOTE | 2024-07-13 10:50 | MHC.PC.OV ---
Vital Signs 07/13/24 10:50 07/13/24 11:13 Height 5 ft 4 in Weight 185 lb BMI 31.8 BP 146/64 H 138/68 Blood Pressure Location Lt brachial Lt brachial Position Sitting Sitting Pulse 84 Pulse Source Pulse Oximeter Pulse Oximetry (%) 95 Oxygen Delivery Method Room Air Intake Visit Reasons: 3 Month F/U Intake Note: Patient is here to follow up 3 months Food And Nutrition Services Supervisor Required: No Allergies codeine [CODEINE] Allergy (Intermediate, Verified 07/13/24 10:50) TONGUE SWELLING amlodipine Adverse Reaction (Intermediate, Verified 07/13/24 10:50) leg swell Medication List - Last Reconciled 07/13/24 by Susan Chavez PA-C albuterol sulfate 90 mcg/actuation 2 puffs PO BEDTIME PRN ascorbic acid (vitamin C) ER 1,000 mg PO Q12H cholecalciferol (vitamin D3) 50 mcg PO DAILY cyanocobalamin (vitamin B-12) 1,000 mcg PO DAILY fluticasone propionate 50 mcg/actuation 1 spray intranasal Q12H PRN furosemide 20 mg PO BID 90 days gabapentin 200 mg (2 x 100 mg) PO BEDTIME 90 days hydralazine 10 mg PO BID lidocaine 5% 1 appl topical BID PRN lidocaine 5% 2 patches topical DAILY losartan 100 mg PO DAILY metformin 500 mg PO BIDWMEAL metoprolol succinate ER 100 mg PO DAILY 90 days [oxygen As directed] rosuvastatin 5 mg PO DAILY Tobacco use date assessed: 12/05/23 Fall risk assessment: No Falls in past year Last assessed Fall Risk: 07/13/24 Dental Screening Dental Screen Date: 12/05/23 HPI 3 Month F/U HPI Details 78-year-old female with past medical history of diabetes mellitus, hypertension, hypercholesterolemia last seen by Dr. Palacios April 2024 coming in for follow up. Patient states she is feeling generally well she eats in consistently throughout the day and has small meals. She is doing well on metformin and has had no diarrhea or GI upset. She has no acute concerns today. [facility] Medical History (Updated 02/12/24 @ 12:48 by Marizol Palacios MD) History of COVID-19 (~09/2020) History of blood transfusion (~10/2020) Osteopenia Pulmonary nodule Emphysema lung Hypertension Anemia Pulmonary nodule Pulmonary embolism (~10/2020) Pneumonia due to COVID-19 virus (~09/2020) Peripheral vascular disease Cataract Hypercholesterolemia Obesity (BMI 30-39.9) Surgical History History of lung biopsy History of hand surgery (~2019) History of esophagogastroduodenoscopy (EGD) (~2020) History of colonoscopy (~2020) History of cataract surgery (~2019) Family History Father Prostate cancer Diabetes Mother Pneumonia Social History Household Members: Children Housing: House Do you presently have visiting nurse or other home services: No Alcohol intake: current Alcohol intake frequency: does not drink Alcohol type: wine Patient Tobacco Use Status: Former Tobacco user Tobacco use type: Cigarette Cigarette Packs Per Day: 1 e-Cigarette/Vaping Use: Never Used Second Hand Smoke Exposure: No service: No Current occupational status: retired Cognitive needs: No Hearing needs: No Vision needs: Yes Questionnaire Thrive Questionnaire Date Thrive assessed: 12/05/23 Are you currently unemployed and looking for a job?: No AUDIT C Alcohol Use Questionnaire (AUDIT-C) 1. How often do you have a drink containing alcohol?: Monthly or less 2. How many drinks containing alcohol do you have on a typical day when you are drinking?: 1 or 2 3. How often do you have six or more drinks on one occasion?: Never Total Score: 1 IGNACIO-7 AMB Questionnaire IGNACIO-7 Date IGNACIO - 7 assessed: 12/05/23 Source: Developed by Drs. Miguel Green, Olga Hinkle, Yuan Martinez and colleagues, with an educational cornelius from [place]. Review of Systems Const Denies body aches, Denies fever(s), Denies headache(s) and Reports weight loss Eyes Reports no additional complaints ENT Denies dizziness and Denies headache(s) Card Denies chest pain, Denies lightheadedness and Denies dyspnea Resp Denies cough and Denies dyspnea GI Denies abdominal pain, Denies constipation, Denies diarrhea, Denies nausea and Denies vomiting Reports no additional complaints Musc Reports no additional complaints and Denies abnormal gait Skin/Breast Reports system reviewed and no additional complaints, except as documented Neuro Denies abnormal gait, Denies dizziness and Denies headache(s) Psych Reports no additional complaints Physical exam (Primary Care) Vital Signs: Last Vital Signs Pulse 84 07/13/24 10:50 BP 138/68 07/13/24 11:13 Pulse Ox 95 07/13/24 10:50 Oxygen Delivery Method Room Air 07/13/24 10:50 BMI result Body Mass Index 31.8 Tobacco/Smoking Status: Tobacco use Status Tobacco use date assessed 12/05/23 07/13/24 10:51 Patient Tobacco Use Status Former Tobacco user 07/13/24 10:51 Tobacco use type Cigarette 07/13/24 10:51 e-Cigarette/Vaping Use Never Used 07/13/24 10:51 Thrive Assessment: Date of Thrive Assessment Date Thrive assessed 12/05/23 07/13/24 10:51 Const General: cooperative, healthy appearing, comfortable and no acute distress Orientation/consciousness: patient oriented x3 HENMT Head: Yes normocephalic Ears: hearing grossly normal bilaterally General nose exam: Normal external nose present Eyes General: appearance normal, both eyes and all related structures Conjunctivae: conjunctivae normal Neck Neck: Yes full ROM and Yes no lymphadenopathy Resp Effort & Inspection: normal respiratory effort Auscultation: clear to auscultation bilaterally, no crackles, no rales, no rhonchi and no wheezes Cardio Rate: regular rate Rhythm: regular rhythm Skin General skin exam: no rashes or lesions noted Neuro General: patient oriented x3 Gait exam (Neuro): Normal gait present Extrem General: Yes normal to inspection, Yes full ROM and No edema Psych Affect: normal affect Attitude: cooperative Insight: Good insight present (Psych) Judgement: Good judgement present (Psych) Results AMB Hemoglobin A1c AMB Hemoglobin A1c 12.7 % Last Edit by COTY Manuel on 07/13/24 11:04 Results Reviewed Results Reviewed: Laboratory Last Values Hgb A1c (Clinic) 12.7 % (4.0-6.0) H 07/13/24 09:04 Coding Level of Care Code Est Pt Level 4 (89608) Diagnoses COPD (chronic obstructive pulmonary disease) J44.9 Hypercholesterolemia E78.00 Type 2 diabetes mellitus with hyperglycemia E11.65 Essential hypertension I10 Hypertension type: essential hypertension Obesity (BMI 30-39.9) E66.9 Assessment & Plan Assessment & Plan (1) COPD (chronic obstructive pulmonary disease): Code(s): J44.9 - Chronic obstructive pulmonary disease, unspecified Category: Medical Plan: Continue on current medication regimen and continue to avoid irritants such as smoking in allergens. (2) Hypercholesterolemia: Comment: decline any med 03/2022 Code(s): E78.00 - Pure hypercholesterolemia, unspecified Category: Medical Plan: Avoid foods that are high in cholesterol such as red meat, fried foods, eggs and baked goods. Triglyceride goal of less than 150 and LDL goal of less than 100. Continue on rosuvastatin. (3) Type 2 diabetes mellitus with hyperglycemia: Comment: [facility] Code(s): E11.65 - Type 2 diabetes mellitus with hyperglycemia Category: Medical Plan: Decrease the amount of carbohydrates such as pasta, bread, rice, and potatoes and limit the amount of sweets. Although fruits are generally healthy they should be eaten in moderation as they are still high in sugar. Hemoglobin A1c goal of less than 7%. A1c is over 12% in the office today. She is declining insulin along with any other injectable treatments. We will trial Jardiance and increasing metformin to 1000 mg twice daily. (4) Hypertension: Code(s): I10 - Essential (primary) hypertension Category: Medical Qualifiers: Hypertension type: essential hypertension Qualified Code(s): I10 - Essential (primary) hypertension Plan: Continue on current blood pressure medication. Avoid salt intake and encourage healthy diet and regular exercise. (5) Obesity (BMI 30-39.9): Code(s): E66.9 - Obesity, unspecified Category: Medical Plan: Encouraged healthy diet and regular exercise. Plan This note was constructed using voice recognition software. While every effort has been made to ensure accuracy and transportation escort, still areas may have been included sometimes these areas may affect the content or meeting of the given symptoms. Total time spent caring for the patient today was 30 minutes. This includes time spent before the visit reviewing the chart, time spent during the visit, and time spent after the visit and documentation. Orders: Orders AMB Hemoglobin A1c Today E11.65 - Type 2 diabetes mellitus with hyperglycemia Lipid Panel Today Z00.00 - Encounter for general adult medical examination without abnormal findings Medications: New metformin 1,000 mg PO BID 60 tabs 2RF Refilled rosuvastatin 5 mg PO DAILY 30 tabs 4RF E78.00 - Pure hypercholesterolemia, unspecified Discontinued metformin Discontinued Reason: Patient no longer taking 500 mg PO BIDWMEAL 60 tabs 3RF E11.65 - Type 2 diabetes mellitus with hyperglycemia
[2024-07-13 11:13] VITALS: BP 138/68
== END 2024-07-13 11:24 | disposition home or self-care (01) ==
PROVIDERS: PCP Internal Medicine
DX: J44.9 Chronic obstructive pulmonary disease, unspecified (principal); E11.65 Type 2 diabetes mellitus with hyperglycemia; E66.811 Obesity, class 1; Z68.31 Body mass index [BMI] 31.0-31.9, adult; E78.00 Pure hypercholesterolemia, unspecified; I10 Essential (primary) hypertension

== ENCOUNTER → 2024-07-13 10:47 | Outpatient (BNVA) | payer MEDICARE, SELFPAY | PROVIDERS: PCP Internal Medicine | DX: E11.65 Type 2 diabetes mellitus with hyperglycemia (principal); J44.9 Chronic obstructive pulmonary disease, unspecified; E78.00 Pure hypercholesterolemia, unspecified; I10 Essential (primary) hypertension; E66.9 Obesity, unspecified | CPT/HCPCS: 83036; 99212 ==

== ENCOUNTER 2024-10-05 11:36 | Outpatient (AMB) | payer MEDICARE, SELFPAY ==
[2024-10-05 12:46] VITALS: BP 118/66; PULSE 83; O2SAT 97
--- NOTE | 2024-10-05 12:46 | AM.OFFWIN_ITS ---
Intake Vital Signs 10/05/24 12:46 Weight 178 lb 5 oz BP 118/66 Blood Pressure Location Rt brachial Position Sitting Pulse 83 Pulse Source Pulse Oximeter Pulse Oximetry (%) 97 Oxygen Delivery Method Room Air Intake Visit Reasons: EP-lt side hip and lower back pain Intake Note: Patient here for lower left abd pain that some times radiates to the back and has been present for about 1 week. Patient Tobacco Use Status: Former Tobacco user Allergies codeine [CODEINE] Allergy (Intermediate, Verified 10/05/24 12:53) TONGUE SWELLING amlodipine Adverse Reaction (Intermediate, Verified 10/05/24 12:53) leg swell Do you need a note to return to daycare/school/sports/work: No HPI HPI Comments History of Present Illness Details History of Present Illness - The patient is a 79-year-old female pr esenting with left flank pain. - Describes pain as aching, similar to a muscle strain, constant for about a week. - Pain began two days before [place] w ith no sharp or pulsating quality, occasionally radiating to the back. - Reports normal urination though using furosemide, with accompanying itching, but no burning. - A history of back pain developing into shingles was noted previously. - Severe diverticulosis diagnosed previo usly, specifically in the sigmoid colon via colonoscopy in 2021 as per records though pt states she was never told this information. - Denies diarrhea, constipation or fever s Physical Exam General: Cooperative, healthy appearing, comfortable, no acute distress and well developed Orientation: Patient oriented x3 Limitations: No limitations Head: Normal to inspection Ears: Hearing grossly normal bilaterally Nose: Normal external nose present Face and sinus: Normal facial exam Eyes: Appearance normal, both eyes and all related structures Neck: Normal visual inspection and Yes full ROM Respiratory: Normal respiratory effort and able to speak in complete sentences. GI: soft, LLQ TTP, negative wood's, no periumbilical TTP and no TTP of supra pubic area. : negative CVA bilaterally Back/Spine: no TTP along thoracic or lumbar spine, no paraspinous tenderness or muscle spasms palpated. Skin: no rashes or lesions noted Neuro: Patient oriented x3 Extremities: Normal to inspection [facility] Medical History (Updated 10/05/24 @ 13:11 by Julissa Rodriguez PA-C) History of COVID-19 (~09/2020) History of blood transfusion (~10/2020) Osteopenia Pulmonary nodule Emphysema lung Hypertension Anemia Pulmonary nodule Pulmonary embolism (~10/2020) Pneumonia due to COVID-19 virus (~09/2020) Peripheral vascular disease Cataract Hypercholesterolemia Obesity (BMI 30-39.9) Surgical History History of lung biopsy History of hand surgery (~2019) History of esophagogastroduodenoscopy (EGD) (~2020) History of colonoscopy (~2020) History of cataract surgery (~2019) Family History Father Prostate cancer Diabetes Mother Pneumonia Social History Household Members: Children Housing: House Do you presently have visiting nurse or other home services: No Alcohol intake: current Alcohol intake frequency: does not drink Alcohol type: wine Patient Tobacco Use Status: Former Tobacco user Tobacco use type: Cigarette Cigarette Packs Per Day: 1 e-Cigarette/Vaping Use: Never Used Second Hand Smoke Exposure: No service: No Current occupational status: retired Cognitive needs: No Hearing needs: No Vision needs: Yes Review of Systems Const All systems reviewed & are unremarkable except as noted in HPI and below Physical Exam Vital Signs: Last Vital Signs Pulse 83 10/05/24 12:46 BP 118/66 10/05/24 12:46 Pulse Ox 97 10/05/24 12:46 Oxygen Delivery Method Room Air 10/05/24 12:46 Results AMB Urinalysis, Automated UA Leukoctes 0 Huey/uL Last Edit by VIRGINIA Gomez on 10/05/24 13:19 UA Nitrite Negative Last Edit by VIRGINIA Gomez on 10/05/24 13:19 UA Urobilinogen 0.2 mg/dL Last Edit by VIRGINIA Gomez on 10/05/24 13:19 UA Protein 0 mg/dL Last Edit by VIRGINIA Gomez on 10/05/24 13:19 UA pH 6.0 Last Edit by VIRGINIA Gomez on 10/05/24 13:19 UA Blood 0 Palmer/uL Last Edit by VIRGINIA Gomez on 10/05/24 13:19 UA Specific [place] 1.020 Last Edit by VIRGINIA Gomez on 10/05/24 13:19 UA Ketone Negative Last Edit by VIRGINIA Gomez on 10/05/24 13:19 UA Bilirubin 0 mg/dL Last Edit by VIRGINIA Gomez on 10/05/24 13:19 UA Glucose 0 mg/dL Last Edit by VIRGINIA Gomez on 10/05/24 13:19 Results Reviewed Results Reviewed: Chart - [facility] ? Provider Notes ? Specialty All Activity ??:?? All Time ??:?? All Subcategories Filter Unavailable Anesthesiology Emergency Medicine Gastroenterology DATE DOCUMENT PROBLEM ? ? STATUS BY SPECIALTY Hx 12/06/20 08:32 Office Visit Capsule endoscopy Signed Theresa Dan Gastroenterology 11/06/20 12:40 Operative Notes Anemia?(+) Signed Theresa Dan Gastroenterology 11/06/20 12:40 Brief Operative Note Anemia?(+) Signed Theresa Dan Gastroenterology 11/06/20 12:35 Preop Eval/H&P Surgical Anemia?(+) Signed Theresa Dan Gastroenterology 11/05/20 08:03 Gastroenterology Consultation Anemia?(+) Signed Theresa Dan Gastroenterology Hospitalist Internal Medicine Occupational Medicine Pulmonology She/Her/Hers Toya Harman Amb 79, F?1945 MRN#? [id number] Pre-Depart 10 REG AMB,?[facility] 178lb 5oz ? Visit Date: 10/05/24 Resus Status Needs Update Hx Avail Historical Visits Special Indicators Allergies codeine (CODEINE) TONGUE SWELLING amlodipine leg swell Medications Prescription Monitoring Program Active albuterol sulfate 2.5 mg(3 mL)inhalationONCE albuterol sulfate 90 mcg/actuation 2 puffsPOBEDTIMEPRN amoxicillin-pot clavulanate 875-125 mg 1 [id number] days ascorbic acid (vitamin C) ER 1,000 [id number] cholecalciferol (vitamin D3) 50 mcgPODAILY cyanocobalamin (vitamin B-12) 1,000 mcgPODAILY fluticasone propionate 50 mcg/actuation 1 [id number] furosemide 20 [id number] days glimepiride 4 mgPODAILY hydralazine 10 mgPOBID lidocaine 5% 1 appltopicalBIDPRN lidocaine 5% 2 patchestopicalDAILY losartan 100 mgPODAILY metformin 1,000 mgPOBID metoprolol succinate ER 100 [id number] days [oxygen] See Rx Instructions rosuvastatin 5 mgPODAILY gabapentin 200 mg(2 x 100 mg)[id number] days Discontinued 10/05/24 Problems HCC Acute left flank pain Retinal hemorrhage Lung cancer 1.024 Shingles Diabetic nephropathy 0.302 COPD (chronic obstructive pulmonary disease) 0.335 TSH elevation URI (upper respiratory infection) SOB (shortness of breath) Low back pain Acute bronchitis Pulmonary nodules Hypercholesterolemia Type 2 diabetes mellitus with hyperglycemia 0.302 Hypoxemia Severe anemia ?Onset: ~2020 Leg swelling Dyspnea on exertion Supplemental oxygen dependent ?Onset: ~2020 Varicose vein of leg Upper respiratory tract infection Hypertension Pulmonary embolism ?Onset: ~10/2020 0.383 Obesity (BMI 30-39.9) Vitals ? 07/13/24 11:13 Today 12:46 Temp ? ? BP 138/68 118/66 Pulse ? 83 Resp Rate ? ? O2 Sat ? 97 Height ? ? Weight ? 178 lb 5 oz BMI ? ? Outstanding Orders [facility] Provider Notes Toya Harman??She/Her/Hers??79??F??1945 ? Allergy/Adv: codeine, amlodipine (More??) Close Office Visit (Signed) Theresa Dan - 12/06/20 08:32 Operative Notes (Signed) Theresa Dan - 11/06/20 12:40 Brief Operative Note (Signed) Theresa Dan - 11/06/20 12:40 Preop Eval/H&P Surgical (Signed) Theresa Dan - 11/06/20 12:35 Gastroenterology Consultation (Signed) Theresa Dan - 11/05/20 08:03 Add?Addendum [address] [address] Operative Note Signed Patient: Toya Harman MR#: [id number] : 1945 Acct:[id number] Age/Sex: 75 / F ADM Date: 11/03/20 Loc: [facility] [address]: Ruiz Wood MD cc: RUIZ WOOD MD; Theresa Dan MD; Marizol Palacios MD~ Operative Note Operative Note Date of Service: 11/06/20 Narrative: Operative Information Procedure Description: EGD, Colonoscopy FLEXIBLE TRANSORAL UPPER GASTROINTESTINAL ENDOSCOPY AND COLONOSCOPY PROCEDURE NOTE UPPER ENDOSCOPY Consent: Indications for the procedure and potential complications of bleeding, perforation, reaction to medications and missed diagnosis were discussed with the patient and informed consent was obtained. Instrument: Olympus GIF H 190 J mid size upper endoscope Monitoring: Vital signs and clinical assessment, continuous EKG monitoring, Pulse oximetry, Carbon Dioxide monitoring and blood pressure monitoring were done throughout the procedure. Procedure: The patient was placed in the left lateral decubitis position and pre-procedure medications were administered and a bite block was placed. The endoscope was inserted into the mouth and advanced under direct vision to the third part of duodenum. A careful inspection was made as the upper endoscope was withdrawn including a retroflexed examination of the proximal stomach; Findings and interventions are described below. Findings: Larynx:normal Esophagus: GE junction at 37 cm, diaphragm hiatus at 37 cm, mild esophagitis, LA grade A Stomach: Normal mucosa. Biopsies were obtained. Grade 2 flap valve on retroflexed examination of the cardia. Duodenum: Mild bulbar duodenitis, bx taken Intervention: Biopsies as noted above COLONOSCOPY Instrument: Olympus variable stiffness pediatric scope 190L Colonoscopy Monitoring: Vital signs and clinical assessment, continuous EKG monitoring, Pulse oximetry, Carbon Dioxide monitoring and blood pressure monitoring were done throughout the procedure. Colon withdrawal time was 10 minutes. Procedure: The patient was placed in the left lateral decubitis position and pre-procedure medications were administered. After a digital rectal examination of the ano-rectum, the video colonoscope was inserted into the rectum and advanced through the colon to the cecum/TI. The colonoscope was slowly withdrawn in a retrograde panoramic fashion and the colon mucosa was carefully examined including a retroflexed view of the rectum. Findings and interventions are described below. Procedure Difficulty:easy Findings: Terminal Ileum-normal Cecum:normal Ascending Colon: normal Transverse Colon -normal Descending Colon:normal Sigmoid Colon: severe diverticulosis with wide mouthed diverticula with mucosal hypertrophy, Rectum: Retroflexion with moderate sized internal hemorrhoids, grade II Anorectum - normal Colon preparation: [place] Bowel Preparation Scale Right colon; 3 Transverse colon: 3 Left colon; 3 (0 = Unprepared colon segment with mucosa not seen due to solid stool that cannot be cleared. 1 = Portion of mucosa of the colon segment seen, but other areas of the colon segment not well seen due to staining, residual stool and/or opaque liquid. 2 = Minor amount of residual staining, small fragments of stool and/or opaque liquid, but mucosa of colon segment seen well. 3 = Entire mucosa of colon segment seen well with no residual staining, small fragments of stool or opaque liquid) Impression and Post Procedure Diagnosis: Endoscopy Findings: duodenitis mild esophagitis Colonoscopy Findings: internal hemorrhoids diverticular disease Plan: Await Pathology results Repeat Colonoscopy in 10 years or earlier if clinically indicated and if health allows High fiber diet leaflet avoid straining at stool, epsom salts and sitz bath, anusol supps or cream prn o/p capsule endoscopy can restart NOAC tomorrow, preferable eliquis as opposed to xarelto Above findings were reviewed with the patient and relevant handouts were provided if indicated. Dictated By: Theresa Dan MD Signed By: <Electronically signed by Theresa Dan MD> 11/06/20 1305 DD/ 1240 TD/TT: 11/06/20 1240 Manager Analysis: Assessment & Plan Assessment & Plan (1) Acute left flank pain: Code(s): R10.9 - Unspecified abdominal pain Plan: The patient's symptoms of left flank pain necessitate a differential diagnosis including muscle strain, possible diverticulosis-related pain, kidney stones, or urinary tract infection. I advised a urinalysis to assess for hematuria and infection, for differentiating between UTI and stones. The known presence of severe diverticulosis is acknowledged without current acute exacerbations. Should initial urine analysis prove inconclusive, further diagnostic steps such as imaging might be pursued depending on the clinical findings. Urine culture sent. UA showed no signs of infection or blood. Clinically, pt appears to have diverticulitis and I will treat with Augmentin. Did educate pt on diet, abx use and if her symptoms get worse, she develops a fever, she should go to the ED. Patient was informed and verbally consented to the use of an ambient scribe for clinic note documentation during this visit. Orders: Orders AMB Urinalysis Automated Today Z13.9 - Encounter for screening, unspecified Urine Culture Today N39.0 - Urinary tract infection, site not specified Medications: New amoxicillin-pot clavulanate 875-125 mg 1 tab PO Q8H 10 days 30 tabs 0RF Coding Level of Care Code Est Pt Level 4 (27359) Diagnoses Acute left flank pain R10.9
== END 2024-10-05 13:46 | disposition home or self-care (01) ==
PROVIDERS: PCP Internal Medicine; Visit Provider Physician Assistant
DX: R10.9 Unspecified abdominal pain (principal); Z13.9 Encounter for screening, unspecified

== ENCOUNTER 2024-10-05 11:36 | Outpatient (REF) | payer MEDICARE, SELFPAY | END 2024-10-05 11:37 | disposition home or self-care (01) | LOC: HO.LAB 11:36 | PROVIDERS: PCP Internal Medicine | DX: R10.9 Unspecified abdominal pain (principal); N39.0 Urinary tract infection, site not specified; B96.20 Unspecified Escherichia coli [E. coli] as the cause of diseases classified elsewhere | CPT/HCPCS: 81003; 87086; 87088; 87186; 99212 ==

== ENCOUNTER 2024-10-28 09:44 | Outpatient (REF) | payer MEDICARE, SELFPAY ==
[2024-10-28 13:19] LABS: MANUAL DIFF FLAG NO
[2024-10-28 13:45] LABS: Basophils Absolute Auto 0.1 X10*3/uL (0.0-0.2); Basophils Percent Auto 0.6 % (0-2); Eosinophils Absolute Auto 0.3 X10*3/uL (0.0-0.4); Eosinophils Percent Auto 2.4 % (0-4); Hematocrit 33.4 % (37.0-47.0); Hemoglobin 10.7 g/dl (12.0-16.0); Imm Gran Abs Auto 0.05 X10*3/uL (0.00-0.03); Imm Gran Pct Auto 0.5 % (0.0-0.4); Lymphocytes Absolute Auto 1.9 X10*3/uL (1.2-4.9); Lymphocytes Percent Auto 18.7 % (20-40); Mean Corpuscular Volume 87.4 fL (80.0-98.0); Mean Platelet Volume 10.9 fL (9.4-12.3); Monocytes Absolute Auto 0.7 X10*3/uL (0.1-1.2); Monocytes Percent Auto 7.2 % (2-11); Neutrophils Absolute Auto 7.2 x10*3/uL (2.0-8.3); Neutrophils Percent Auto 70.6 % (45-73); Platelet Count 361 X10*3/uL (160-400); Red Blood Count 3.82 X10*6/uL (4.20-5.50); Red Cell Distribution Width 13.4 % (11.0-16.0); White Blood Count 10.3 X10*3/uL (4.8-10.8)
[2024-10-28 13:53] LABS: Estimated Average Glucose 203 mg/dL; Hemoglobin A1C 200.8949 umol/L; Hemoglobin A1c % 8.7 % (<6.0); Total Hemoglobin (HGBA1C) 2813.6535 umol/L
[2024-10-28 14:05] LABS: Alanine Aminotransferase 9 U/L (0-31); Albumin Level 3.3 g/dL (3.5-5.0); Alkaline Phosphatase 132 U/L (39-117); Anion Gap 11 (12-20); Aspartate Amino Transferase 28 U/L (5-31); Bilirubin Total 0.4 mg/dL (0.0-1.0); Blood Urea Nitrogen 9 mg/dL (9-16); Calcium 9.4 mg/dL (8.4-10.2); Carbon Dioxide 27 mmol/L (22-29); Chloride 106 mmol/L (96-108); Cholesterol 101 mg/dL (<200); Estimated Glomerular Filt Rate > 60; Glucose Random 112 mg/dL (60-115); HDL Cholesterol 35 mg/dL (>40); LDL Cholesterol Calculated 50 mg/dL (<100); Potassium 4.2 mmol/L (3.3-5.1); Sodium 140 mmol/L (135-145); Total Protein 7.8 g/dL (6.5-8.0); Triglycerides 84 mg/dL (<150)
[2024-10-28 14:14] LABS: Creatinine Urine 17.62 mg/dL; Microalbum/Creatinine Ratio Ur 73.7 ug/mg cr (<30)
[2024-10-28 14:25] LABS: Free T4 (Free Thyroxine) 1.16 ng/dL (0.71-1.85); Thyroid Stimulating Hormone 3.09 uIU/mL (0.32-4.0)
[2024-10-28 14:28] LABS: Folate 7.7 ng/mL (> or = 4.0); Vitamin B12 1171 pg/mL (200-900)
== END 2024-10-28 09:45 | disposition home or self-care (01) ==
LOC: HO.HMGCLDS 09:44
PROVIDERS: PCP Internal Medicine; Visit Provider Internal Medicine
DX: E11.65 Type 2 diabetes mellitus with hyperglycemia (principal); E78.00 Pure hypercholesterolemia, unspecified
CPT/HCPCS: 36415; 80053; 80061; 82043; 82306; 82570; 82607; 82746; 83036; 84439; 84443; 85025

== ENCOUNTER 2024-11-03 11:06 | Outpatient (AMB) | payer MEDICARE, SELFPAY ==
--- NOTE | 2024-11-03 11:33 | MHC.PC.OV ---
Vital Signs 11/03/24 11:34 11/03/24 12:09 Height 5 ft 4 in Weight 176 lb BMI 30.2 BP 148/80 H 140/80 H Blood Pressure Location Lt brachial Lt brachial Position Sitting Sitting Pulse 90 Pulse Source Pulse Oximeter Pulse Oximetry (%) 93 Oxygen Delivery Method Room Air Intake Visit Reasons: GERD, contracted GB Allergies codeine [CODEINE] Allergy (Intermediate, Verified 11/03/24 11:34) TONGUE SWELLING amlodipine Adverse Reaction (Intermediate, Verified 11/03/24 11:34) leg swell metformin Allergy (Intermediate, Uncoded 11/03/24 12:06) abdminal pain Medication List - Last Reconciled 11/03/24 by Marizol Palacios MD albuterol sulfate 90 mcg/actuation 2 puffs PO BEDTIME PRN amoxicillin-pot clavulanate 875-125 mg 1 tab PO Q8H 10 days ascorbic acid (vitamin C) ER 1,000 mg PO Q12H cholecalciferol (vitamin D3) 50 mcg PO DAILY cyanocobalamin (vitamin B-12) 1,000 mcg PO DAILY fluticasone propionate 50 mcg/actuation 1 spray intranasal Q12H PRN furosemide 20 mg PO BID 90 days glimepiride 4 mg PO DAILY hydralazine 10 mg PO BID lidocaine 5% 1 appl topical BID PRN lidocaine 5% 2 patches topical DAILY losartan 100 mg PO DAILY metformin 500 mg PO BID metoprolol succinate ER 100 mg PO DAILY 90 days [oxygen As directed] rosuvastatin 5 mg PO DAILY Tobacco use date assessed: 11/03/24 Fall risk assessment: No Falls in past year Last assessed Fall Risk: 11/03/24 Dental Screening Dental Screen Date: 11/03/24 Did you have a dental visit in the last 12 months?: Yes Did you have a dental problem in the last 6 months where you did not have access to dental care?: No Was dental information given to patient?: Patient has dentist HPI GERD, contracted GB HPI Details 79-year-old obese female with uncontrolled diabetes mellitus hypertension hypercholesterolemia COPD coming in for follow-up last seen last year. Patient just had blood work done otherwise doing good has had urgent care visit for abdominal pain diagnosis of diverticulitis and was treated with Augmentin today patient feels good. [facility] Medical History (Updated 11/03/24 @ 12:11 by Marizol Palacios MD) History of COVID-19 (~09/2020) History of blood transfusion (~10/2020) Osteopenia Pulmonary nodule Emphysema lung Hypertension Anemia Pulmonary nodule Pulmonary embolism (~10/2020) Pneumonia due to COVID-19 virus (~09/2020) Peripheral vascular disease Cataract Hypercholesterolemia Obesity (BMI 30-39.9) Surgical History History of lung biopsy History of hand surgery (~2019) History of esophagogastroduodenoscopy (EGD) (~2020) History of colonoscopy (~2020) History of cataract surgery (~2019) Family History Father Prostate cancer Diabetes Mother Pneumonia Social History Household Members: Children Housing: House Do you presently have visiting nurse or other home services: No Alcohol intake: current Alcohol intake frequency: does not drink Alcohol type: wine Patient Tobacco Use Status: Former Tobacco user Tobacco use type: Cigarette Cigarette Packs Per Day: 1 e-Cigarette/Vaping Use: Never Used Second Hand Smoke Exposure: No service: No Current occupational status: retired Cognitive needs: No Hearing needs: No Vision needs: Yes Questionnaire PHQ-9 Over the last 2 weeks, how often have you been bothered by any of the following problems? 1. Little interest or pleasure in doing things: not at all 2. Feeling down, depressed, or hopeless: not at all 3. Trouble falling or staying asleep, or sleeping too much: not at all 4. Feeling tired or having little energy: not at all 5. Poor appetite or overeating: not at all 6. Feeling bad about yourself - or that you are a failure or have let yourself or your family down: not at all 7. Trouble concentrating on things, such as reading the newspaper or watching television: not at all 8. Moving or speaking so slowly that other people could have noticed. Or the opposite - being so fidgety or restless that you have been moving around a lot more than usual: not at all 9. Thoughts that you would be better off or of hurting yourself in some way: not at all Total score: 0 Depression Screening Interpretation: Negative Depression Screening Done: Yes Source: Developed by Drs. Miguel Green, Olga Hinkle, Yuan Martinez and colleagues, with an educational cornelius from [employer]. Thrive Questionnaire Date Thrive assessed: 11/03/24 I am a: Patient What is your living situation today?: I have a steady place to live Within the past 12 months, did the food you bought not last and you didn't have the money to get more?: Never true Within the past 12 months, did you worry whether your food would run out before you got money to buy more?: Never true Do you have trouble paying for medicines?: No Do you have trouble getting transportation to medical appointments?: No Do you have trouble paying your heating and electricity bill?: No Do you have trouble taking care of your child, family member or friend?: No Do you have trouble with day-to-day activities such as bathing, preparing meals, shopping, managing finances, etc.?: No Are you currently unemployed and looking for a job?: No Are you interested in more education?: No Currently or been in a relationship where the following occur: No concerns reported THRIVE Score: 0 AUDIT C Alcohol Use Questionnaire (AUDIT-C) 1. How often do you have a drink containing alcohol?: Monthly or less 2. How many drinks containing alcohol do you have on a typical day when you are drinking?: 1 or 2 3. How often do you have six or more drinks on one occasion?: Never Total Score: 1 IGNACIO-7 AMB Questionnaire IGNACIO-7 Date IGNACIO - 7 assessed: 11/03/24 Feeling nervous, anxious, or on edge: 0 = Not at all Not being able to stop or control worryin = Not at all Worrying too much about different things: 0 = Not at all Trouble relaxin = Not at all Being so restless that it is hard to sit still: 0 = Not at all Becoming easily annoyed or irritable: 0 = Not at all Feeling afraid as if something awful might happen: 0 = Not at all Total IGNACIO-7 score (0-4 normal; 5-9 mild; 10-14 moderate; 15-21 severe): 0 Source: Developed by Olga Ryder Kurt Kroenke and colleagues, with an educational cornelius from [employer]. Physical exam (Primary Care) Vital Signs: Last Vital Signs Pulse 90 11/03/24 11:34 BP 148/80 H 11/03/24 11:34 Pulse Ox 93 11/03/24 11:34 Oxygen Delivery Method Room Air 11/03/24 11:34 BMI result Body Mass Index 30.2 Tobacco/Smoking Status: Tobacco use Status Tobacco use date assessed 11/03/24 11/03/24 11:35 Patient Tobacco Use Status Former Tobacco user 11/03/24 11:35 Tobacco use type Cigarette 11/03/24 11:35 e-Cigarette/Vaping Use Never Used 11/03/24 11:35 PHQ-9: PHQ-9 Score PHQ-9: Total score 0 11/03/24 11:46 Depression Screening Interpretation: Negative Thrive Assessment: Date of Thrive Assessment Date Thrive assessed 11/03/24 11/03/24 11:35 Currently or been in a relationship where the following occur: No concerns reported Const General: alert; No acute distress Eyes Conjunctivae: conjunctivae normal Resp Auscultation: clear to auscultation bilaterally Cardio Rate: regular rate Rhythm: regular rhythm GI Inspection: Yes normal to inspection Extrem General: Yes normal to inspection and No edema Coding Level of Care Code Est Pt Level 4 (12788) Complex EM visit Add On G2211 Diagnoses Type 2 diabetes mellitus with hyperglycemia E11.65 Essential hypertension I10 Hypertension type: essential hypertension Obesity (BMI 30-39.9) E66.9 Hypercholesterolemia E78.00 Lung cancer C34.90 Anemia D64.9 Assessment & Plan Assessment & Plan (1) Type 2 diabetes mellitus with hyperglycemia: Comment: [facility] Code(s): E11.65 - Type 2 diabetes mellitus with hyperglycemia Category: Medical Plan: Decrease the amount of carbohydrate intake, pasta, bread, rice and potatoes are all sugar and that is aside from all the sweet stuff, remember that fruits are good but they are Sweet also. Patient is not able to tolerate the metformin having abdominal pain. Will discontinue and start on Jardiance. Continue with glimepiride. (2) Hypertension: Code(s): I10 - Essential (primary) hypertension Category: Medical Qualifiers: Hypertension type: essential hypertension Qualified Code(s): I10 - Essential (primary) hypertension Plan: Blood pressure is elevated today on metoprolol losartan and hydralazine. Advised patient to get blood pressure checked at home and the [id number] is a nurse to get the blood pressure. (3) Obesity (BMI 30-39.9): Code(s): E66.9 - Obesity, unspecified Category: Medical Plan: Diet and exercise (4) Hypercholesterolemia: Comment: decline any med 03/2022 Code(s): E78.00 - Pure hypercholesterolemia, unspecified Category: Medical Plan: Avoid fried foods, chicken skin, eggs, butter margarine, pastries and meat. Be it pork or beef they have a lot of cholesterol LDL goal of less than 100 and triglyceride of less than 150 blood work at goal with rosuvastatin 5 mg once a day (5) Lung cancer: Comment: Pulmonary follow up , 02/2024 CT decline workup Code(s): C34.90 - Malignant neoplasm of unspecified part of unspecified bronchus or lung Category: Medical Plan: Patient is being followed up by Pulmonary and has declined further workup. (6) Anemia: Code(s): D64.9 - Anemia, unspecified Category: Medical Plan: Advised to get iron testing. Orders: Orders Complete Blood Count Auto Diff Today D64.9 - Anemia, unspecified IRON PROFILE Today D64.9 - Anemia, unspecified Reticulocyte Count Today D64.9 - Anemia, unspecified Ferritin Today D64.9 - Anemia, unspecified Medications: New empagliflozin (Jardiance) 10 mg PO DAILY 30 tabs 5RF E11.65 - Type 2 diabetes mellitus with hyperglycemia Discontinued metformin Discontinued Reason: Doctor's Order 500 mg PO BID amoxicillin-pot clavulanate 875-125 mg Discontinued Reason: Patient Completed Course 1 tab PO Q8H 10 days 30 tabs 0RF
[2024-11-03 11:34] VITALS: BP 148/80; PULSE 90; O2SAT 93; BMI 30.2
[2024-11-03 12:09] VITALS: BP 140/80
== END 2024-11-03 12:17 | disposition home or self-care (01) ==
PROVIDERS: PCP Internal Medicine; Visit Provider Internal Medicine
DX: E11.65 Type 2 diabetes mellitus with hyperglycemia (principal); C34.90 Malignant neoplasm of unspecified part of unspecified bronchus or lung; E66.9 Obesity, unspecified; Z68.30 Body mass index [BMI] 30.0-30.9, adult; I10 Essential (primary) hypertension; E78.00 Pure hypercholesterolemia, unspecified; D64.9 Anemia, unspecified

== ENCOUNTER → 2024-11-03 11:06 | Outpatient (BNVA) | payer MEDICARE, SELFPAY | PROVIDERS: PCP Internal Medicine; Visit Provider Internal Medicine | DX: E11.65 Type 2 diabetes mellitus with hyperglycemia (principal); I10 Essential (primary) hypertension; E66.9 Obesity, unspecified; E78.00 Pure hypercholesterolemia, unspecified; C34.90 Malignant neoplasm of unspecified part of unspecified bronchus or lung; D64.9 Anemia, unspecified | CPT/HCPCS: 99212 ==

== ENCOUNTER 2025-02-03 07:26 | Outpatient (REF) | payer MEDICARE, SELFPAY ==
[2025-02-03 10:08] LABS: MANUAL DIFF FLAG NO
[2025-02-03 10:10] LABS: Basophils Absolute Auto 0.1 X10*3/uL (0.0-0.2); Basophils Percent Auto 0.4 % (0-2); Eosinophils Absolute Auto 0.3 X10*3/uL (0.0-0.4); Eosinophils Percent Auto 2.3 % (0-4); Hematocrit 33.6 % (37.0-47.0); Hemoglobin 10.8 g/dl (12.0-16.0); Imm Gran Abs Auto 0.04 X10*3/uL (0.00-0.03); Imm Gran Pct Auto 0.4 % (0.0-0.4); Lymphocytes Absolute Auto 2.3 X10*3/uL (1.2-4.9); Lymphocytes Percent Auto 20.5 % (20-40); Mean Corpuscular HGB Conc 32.1 g/dl (31.0-35.0); Mean Corpuscular Hemoglobin 26.8 pg (27.0-33.0); Mean Corpuscular Volume 83.4 fL (80.0-98.0); Mean Platelet Volume 10.7 fL (9.4-12.3); Monocytes Percent Auto 8.8 % (2-11); Neutrophils Absolute Auto 7.7 x10*3/uL (2.0-8.3); Neutrophils Percent Auto 67.6 % (45-73); Platelet Count 400 X10*3/uL (160-400); Red Blood Count 4.03 X10*6/uL (4.20-5.50); Red Cell Distribution Width 14.5 % (11.0-16.0); Retic HGB Equivalent 30.2 pg (30.0-35.0); Reticulocyte Percent 1.2 % (0.5-1.8); Reticulocytes Absolute 0.047 X10*6/uL (0.026-0.095); White Blood Count 11.4 X10*3/uL (4.8-10.8)
[2025-02-03 11:08] LABS: Iron 25 mcg/dL (30-160); Percent Iron Saturation 15 % (15-50); Total Iron Binding Capacity 167 mcg/dL (228-428); Unsaturated Iron Binding 142 ug/dL
[2025-02-03 11:12] LABS: Ferritin 100 ng/mL (10-250)
[2025-02-03 11:20] LABS: Creatinine Urine 85.16 mg/dL
== END 2025-02-03 07:27 | disposition home or self-care (01) ==
LOC: HO.HMGCLDS 07:26
PROVIDERS: PCP Internal Medicine; Visit Provider Internal Medicine
DX: E11.65 Type 2 diabetes mellitus with hyperglycemia (principal); D64.9 Anemia, unspecified
CPT/HCPCS: 36415; 82570; 82728; 83540; 85025; 85045

== ENCOUNTER 2025-02-10 09:22 | Outpatient (AMB) | payer MEDICARE, SELFPAY ==
--- NOTE | 2025-02-10 09:23 | MHC.PC.OV ---
Vital Signs 02/10/25 09:24 Height 5 ft 4 in Weight 160 lb BMI 27.5 BP 132/62 Blood Pressure Location Lt brachial Position Sitting Pulse 93 Pulse Source Pulse Oximeter Pulse Oximetry (%) 97 Oxygen Delivery Method Room Air Intake Visit Reasons: DM - see comments Allergies codeine [CODEINE] Allergy (Intermediate, Verified 02/10/25 09:24) TONGUE SWELLING amlodipine Adverse Reaction (Intermediate, Verified 02/10/25 09:24) leg swell metformin Allergy (Intermediate, Uncoded 02/10/25 09:24) abdminal pain Medication List - Last Reconciled 02/10/25 by Marizol Palacios MD albuterol sulfate 90 mcg/actuation 2 puffs PO BEDTIME PRN ascorbic acid (vitamin C) ER 1,000 mg PO Q12H cholecalciferol (vitamin D3) 50 mcg PO DAILY cyanocobalamin (vitamin B-12) 1,000 mcg PO DAILY empagliflozin (Jardiance) 10 mg PO DAILY fluticasone propionate 50 mcg/actuation 1 spray intranasal Q12H PRN furosemide 20 mg PO BID 90 days glimepiride 4 mg PO DAILY hydralazine 10 mg PO BID lidocaine 5% 1 appl topical BID PRN lidocaine 5% 2 patches topical DAILY losartan 100 mg PO DAILY metoprolol succinate ER 100 mg PO DAILY 90 days [oxygen As directed] rosuvastatin 5 mg PO DAILY Tobacco use date assessed: 11/03/24 Fall risk assessment: No Falls in past year Last assessed Fall Risk: 02/10/25 Dental Screening Dental Screen Date: 11/03/24 HPI DM - see comments HPI Details 79-year-old overweight female noted weight loss with a history of pulmonary embolism 2020 hypertension diabetes mellitus hypercholesterolemia anemia COPD coming in for follow-up. Patient has a history of lung cancer but has declined workup. [facility] Medical History (Updated 02/10/25 @ 14:51 by Marizol Palacios MD) Obesity (BMI 30-39.9) History of COVID-19 (~09/2020) History of blood transfusion (~10/2020) Osteopenia Pulmonary nodule Emphysema lung Hypertension Anemia Pulmonary nodule Pulmonary embolism (~10/2020) Pneumonia due to COVID-19 virus (~09/2020) Peripheral vascular disease Cataract Hypercholesterolemia Surgical History History of lung biopsy History of hand surgery (~2019) History of esophagogastroduodenoscopy (EGD) (~2020) History of colonoscopy (~2020) History of cataract surgery (~2019) Family History Father Prostate cancer Diabetes Mother Pneumonia Social History Household Members: Children Housing: House Do you presently have visiting nurse or other home services: No Alcohol intake: current Alcohol intake frequency: does not drink Alcohol type: wine Patient Tobacco Use Status: Former Tobacco user Tobacco use type: Cigarette Cigarette Packs Per Day: 1 e-Cigarette/Vaping Use: Never Used Second Hand Smoke Exposure: No service: No Current occupational status: retired Cognitive needs: No Hearing needs: No Vision needs: Yes Questionnaire PHQ-9 Over the last 2 weeks, how often have you been bothered by any of the following problems? 1. Little interest or pleasure in doing things: not at all 2. Feeling down, depressed, or hopeless: not at all 3. Trouble falling or staying asleep, or sleeping too much: not at all 4. Feeling tired or having little energy: not at all 5. Poor appetite or overeating: not at all 6. Feeling bad about yourself - or that you are a failure or have let yourself or your family down: not at all 7. Trouble concentrating on things, such as reading the newspaper or watching television: not at all 8. Moving or speaking so slowly that other people could have noticed. Or the opposite - being so fidgety or restless that you have been moving around a lot more than usual: not at all 9. Thoughts that you would be better off or of hurting yourself in some way: not at all Total score: 0 Depression Screening Interpretation: Negative Depression Screening Done: Yes 14721 - PHQ-9 Billing: Yes Source: Developed by Drs. Miguel Green, Olga Hinkle, Yuan Martinez and colleagues, with an educational cornelius from [employer]. Thrive Questionnaire Date Thrive assessed: 11/03/24 I am a: Patient What is your living situation today?: I have a steady place to live Within the past 12 months, did the food you bought not last and you didn't have the money to get more?: I choose not to answer this question Within the past 12 months, did you worry whether your food would run out before you got money to buy more?: I choose not to answer this question Do you have trouble paying for medicines?: I choose not to answer this question Do you have trouble getting transportation to medical appointments?: I choose not to answer this question Do you have trouble paying your heating and electricity bill?: I choose not to answer this question Do you have trouble taking care of your child, family member or friend?: I choose not to answer this question Do you have trouble with day-to-day activities such as bathing, preparing meals, shopping, managing finances, etc.?: I choose not to answer this question Are you currently unemployed and looking for a job?: I choose not to answer this question Are you interested in more education?: I choose not to answer this question Please select the resources that you would like help with: None Currently or been in a relationship where the following occur: No concerns reported THRIVE Score: 0 AUDIT C Alcohol Use Questionnaire (AUDIT-C) 1. How often do you have a drink containing alcohol?: Never Total Score: 0 IGNACIO-7 AMB Questionnaire IGNACIO-7 Date IGNACIO - 7 assessed: 11/03/24 Feeling nervous, anxious, or on edge: 0 = Not at all Not being able to stop or control worryin = Not at all Worrying too much about different things: 0 = Not at all Trouble relaxin = Not at all Being so restless that it is hard to sit still: 0 = Not at all Becoming easily annoyed or irritable: 0 = Not at all Feeling afraid as if something awful might happen: 0 = Not at all Total IGNACIO-7 score (0-4 normal; 5-9 mild; 10-14 moderate; 15-21 severe): 0 Source: Developed by Drs. Miguel Green, Olga Hinkle, Yuan Martinez and colleagues, with an educational cornelius from [employer]. Physical exam (Primary Care) Vital Signs: Last Vital Signs Pulse 93 02/10/25 09:24 BP 132/62 02/10/25 09:24 Pulse Ox 97 02/10/25 09:24 Oxygen Delivery Method Room Air 02/10/25 09:24 BMI result Body Mass Index 27.5 Tobacco/Smoking Status: Tobacco use Status Tobacco use date assessed 11/03/24 02/10/25 09:25 Patient Tobacco Use Status Former Tobacco user 02/10/25 09:25 Tobacco use type Cigarette 02/10/25 09:25 e-Cigarette/Vaping Use Never Used 02/10/25 09:25 PHQ-9: PHQ-9 Score PHQ-9: Total score 0 02/10/25 10:03 Depression Screening Interpretation: Negative Thrive Assessment: Date of Thrive Assessment Date Thrive assessed 11/03/24 02/10/25 09:25 Currently or been in a relationship where the following occur: No concerns reported Const General: alert; No acute distress Eyes Conjunctivae: conjunctivae normal Resp Auscultation: clear to auscultation bilaterally Cardio Rate: regular rate Rhythm: regular rhythm GI Inspection: Yes normal to inspection Extrem General: Yes normal to inspection and No edema Results AMB Hemoglobin A1c AMB Hemoglobin A1c 9.9 % Last Edit by Kenisha Martínez CMA on 02/10/25 09:56 Results Reviewed Results Reviewed: Laboratory Last Values Hgb A1c (Clinic) 9.9 % (4.0-6.0) H 02/10/25 09:25 Coding Level of Care Code Est Pt Level 4 (21762) Complex EM visit Add On G2211 Diagnoses Type 2 diabetes mellitus with hyperglycemia, without long-term current use of insulin E11.65 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: without retirement use Hypercholesterolemia E78.00 Pulmonary emphysema, unspecified emphysema type J43.9 COPD type: emphysema Emphysema type: unspecified Iron deficiency anemia secondary to inadequate dietary iron intake D50.8 Anemia type: iron deficiency Iron deficiency anemia type: inadequate dietary iron intake Essential hypertension I10 Hypertension type: essential hypertension Overweight (BMI 25.0-29.9) E66.3 Malignant neoplasm of lung, unspecified laterality, unspecified part of lung C34.90 Laterality: unspecified laterality Lung location: unspecified part of lung Additional Codes PHQ-9 - 64677 - PHQ-9 Billing: Yes ([id number]) Assessment & Plan Assessment & Plan (1) Type 2 diabetes mellitus with hyperglycemia: Comment: [facility] Code(s): E11.65 - Type 2 diabetes mellitus with hyperglycemia Category: Medical Qualifiers: 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 Hemoglobin A1c goal of less than 7.0 patient on Jardiance glimepiride patient declined insulin. Will start on pioglitazone (2) Hypercholesterolemia: Comment: decline any med 03/2022 Code(s): E78.00 - Pure hypercholesterolemia, unspecified Category: Medical Plan: Avoid fried foods, chicken skin, eggs, butter margarine, pastries and meat. Be it pork or beef they have a lot of cholesterol on rosuvastatin at goal in October (3) COPD (chronic obstructive pulmonary disease): Code(s): J44.9 - Chronic obstructive pulmonary disease, unspecified Category: Medical Qualifiers: COPD type: emphysema Emphysema type: unspecified Qualified Code(s): J43.9 - Emphysema, unspecified Plan: Continue with albuterol inhaler (4) Anemia: Code(s): D64.9 - Anemia, unspecified Category: Medical Qualifiers: Anemia type: iron deficiency Iron deficiency anemia type: inadequate dietary iron intake Qualified Code(s): D50.8 - Other iron deficiency anemias Plan: Discussed about iron deficiency advised iron with vitamin-C (5) Hypertension: Code(s): I10 - Essential (primary) hypertension Category: Medical Qualifiers: Hypertension type: essential hypertension Qualified Code(s): I10 - Essential (primary) hypertension Plan: Continue with blood pressure medication. Decrease salt intake and exercise on hydralazine 10 mg twice a day losartan 100 mg once a day metoprolol 100 mg once a day (6) Overweight (BMI 25.0-29.9): Code(s): E66.3 - Overweight Category: Medical Plan: Discussed concerns about weight loss. (7) Lung cancer: Comment: Pulmonary follow up , 02/2024 CT decline workup Code(s): C34.90 - Malignant neoplasm of unspecified part of unspecified bronchus or lung Category: Medical Qualifiers: Laterality: unspecified laterality Lung location: unspecified part of lung Qualified Code(s): C34.90 - Malignant neoplasm of unspecified part of unspecified bronchus or lung Plan: Patient has declined workup for this Orders: Orders AMB Hemoglobin A1c Today Z13.9 - Encounter for screening, unspecified Lipid Panel 3 Months E11.65 - Type 2 diabetes mellitus with hyperglycemia, E78.00 - Pure hypercholesterolemia, unspecified Thyroid Stimulating Hormone 3 Months E11.65 - Type 2 diabetes mellitus with hyperglycemia Free T4 (Free Thyroxine) 3 Months E11.65 - Type 2 diabetes mellitus with hyperglycemia Reticulocyte Count 3 Months E11.65 - Type 2 diabetes mellitus with hyperglycemia IRON PROFILE 3 Months E11.65 - Type 2 diabetes mellitus with hyperglycemia Hemoglobin A1c 3 Months E11.65 - Type 2 diabetes mellitus with hyperglycemia Comprehensive Met. Panel 3 Months E11.65 - Type 2 diabetes mellitus with hyperglycemia Complete Blood Count Auto Diff 3 Months E11.65 - Type 2 diabetes mellitus with hyperglycemia Vitamin B12 and Folate 3 Months E11.65 - Type 2 diabetes mellitus with hyperglycemia Ferritin 3 Months E11.65 - Type 2 diabetes mellitus with hyperglycemia Vitamin D 25-OH Total 3 Months E11.65 - Type 2 diabetes mellitus with hyperglycemia Referrals Hematology & Oncology Referral C34.90 - Malignant neoplasm of unspecified part of unspecified bronchus or lung, D64.9 - Anemia, unspecified Medications: New blood-glucose meter (FreeStyle Lite Meter kit) As directed 1 ea 0RF E11.65 - Type 2 diabetes mellitus with hyperglycemia lancets (FreeStyle Lancets) As directed check BS QD 100 ea 3RF E11.65 - Type 2 diabetes mellitus with hyperglycemia blood sugar diagnostic (FreeStyle Lite Strips) As directed check the BS QD 100 ea 3RF E11.65 - Type 2 diabetes mellitus with hyperglycemia pioglitazone 15 mg PO DAILY 30 tabs 6RF E11.65 - Type 2 diabetes mellitus with hyperglycemia
[2025-02-10 09:24] VITALS: BP 132/62; PULSE 93; O2SAT 97; BMI 27.5
== END 2025-02-10 10:19 | disposition home or self-care (01) ==
LOC: HO.HMCH 09:22
PROVIDERS: PCP Internal Medicine; Visit Provider Internal Medicine
DX: E11.65 Type 2 diabetes mellitus with hyperglycemia (principal); J43.9 Emphysema, unspecified; C34.90 Malignant neoplasm of unspecified part of unspecified bronchus or lung; E78.00 Pure hypercholesterolemia, unspecified; D50.8 Other iron deficiency anemias; I10 Essential (primary) hypertension; E66.3 Overweight

== ENCOUNTER → 2025-02-10 09:22 | Outpatient (BNVA) | payer MEDICARE, SELFPAY | PROVIDERS: PCP Internal Medicine; Visit Provider Internal Medicine | DX: E11.65 Type 2 diabetes mellitus with hyperglycemia (principal); I10 Essential (primary) hypertension; E78.00 Pure hypercholesterolemia, unspecified; D64.9 Anemia, unspecified; J43.9 Emphysema, unspecified; D50.8 Other iron deficiency anemias; E66.3 Overweight; C34.90 Malignant neoplasm of unspecified part of unspecified bronchus or lung; Z86.711 Personal history of pulmonary embolism | CPT/HCPCS: 83036; 96127; 99212 ==

== ENCOUNTER 2025-02-15 12:48 | Outpatient (AMB) | payer MEDICARE, SELFPAY ==
[2025-02-15 12:55] VITALS: BP 137/62; PULSE 107; O2SAT 94; BMI 27.6
--- NOTE | 2025-02-15 12:55 | MHC.OFFVIS ---
Vital Signs 02/15/25 12:55 Height 5 ft 4 in Weight 161 lb BMI 27.6 BP 137/62 Blood Pressure Location Rt brachial Position Sitting Pulse 107 H Pulse Source Pulse Oximeter Pulse Oximetry (%) 94 Oxygen Delivery Method Room Air Intake Visit Reasons: pulmonary nodules Allergies codeine [CODEINE] Allergy (Intermediate, Verified 02/15/25 13:00) TONGUE SWELLING amlodipine Adverse Reaction (Intermediate, Verified 02/15/25 13:00) leg swell metformin Allergy (Intermediate, Uncoded 02/10/25 09:24) abdminal pain HPI HPI pulmonary nodules: Details: 79-year-old lady, former 30+ pack-year smoker, quit 20 years prior with underlying history of COVID-19 and September of 2020, discharged on supplemental oxygen, COVID-19 related pulmonary emboli, followed for pulmonary nodules, COPD, and COVID-19 provoked pulmonary emboli.? Her PET-CT showed two PET positive left-sided nodules.? Patient has had 1 out of 2 biopsied with results showing no malignancy. Patient did not want to proceed with a biopsy of the 2nd nodule.? Patient has been explained that delay in diagnosis can lead to development of metastatic lung cancer with early .?She continues on albuterol MDI and rarely requires using it. She denies recent bronchitic exacerbation. Patient had another follow-up CT chest that shows growing bilateral pulmonary nodules now up to 2 2 cm on the right and 1.6 cm on the left and a new right sided nodule that a deemed to be malignant, unless proven otherwise. Patient continues to stoutly refuse to undergo biopsy and she has not interested in possible treatment modalities including chemotherapy or radiation, understanding that absence diagnosis or treatment will lead to early . Today, she is amenable to repeating CT scan. [facility] Medical History (Updated 02/10/25 @ 14:51 by Marizol Palacios MD) Obesity (BMI 30-39.9) History of COVID-19 (~09/2020) History of blood transfusion (~10/2020) Osteopenia Pulmonary nodule Emphysema lung Hypertension Anemia Pulmonary nodule Pulmonary embolism (~10/2020) Pneumonia due to COVID-19 virus (~09/2020) Peripheral vascular disease Cataract Hypercholesterolemia Surgical History History of lung biopsy History of hand surgery (~2019) History of esophagogastroduodenoscopy (EGD) (~2020) History of colonoscopy (~2020) History of cataract surgery (~2019) Family History Father Prostate cancer Diabetes Mother Pneumonia Social History Household Members: Children Housing: House Do you presently have visiting nurse or other home services: No Alcohol intake: current Alcohol intake frequency: does not drink Alcohol type: wine Patient Tobacco Use Status: Former Tobacco user Tobacco use type: Cigarette Cigarette Packs Per Day: 1 e-Cigarette/Vaping Use: Never Used Second Hand Smoke Exposure: No service: No Current occupational status: retired Cognitive needs: No Hearing needs: No Vision needs: Yes Review of Systems Const Denies daytime sleepiness, Denies excessive sweating, Denies fatigue, Denies fever(s), Denies lethargy, Denies malaise, Denies night sweats, Denies snoring and Reports weight loss Eyes Denies blurry vision and Denies itchy eyes ENT Denies nasal congestion, Denies post nasal drip, Denies sinus pain, Denies sinus pressure and Denies other ( Thrush) Card Denies chest pain, Denies pedal edema, Denies dyspnea, Denies orthopnea and Denies paroxysmal nocturnal dyspnea Resp Denies cough, Denies hemoptysis, Denies excessive phlegm production, Denies dyspnea, Denies snoring and Denies wheezing GI Denies abdominal pain and Denies heartburn Musc Denies myalgias, Denies arthralgias and Denies joint swelling Skin/Breast Denies rash Neuro Denies memory loss and Denies seizure-like activity Psych Denies abnormal sleep pattern, Denies anxiety and Denies memory loss Endo Denies excessive sweating, Denies fatigue and Denies heat intolerance Jacob/Lymph Denies easy bruising Aller/Immun Denies itchy eyes, Denies seasonal rhinorrhea and Denies wheezing Physical Exam Vital Signs: Last Vital Signs Pulse 107 H 02/15/25 12:55 BP 137/62 02/15/25 12:55 Pulse Ox 94 02/15/25 12:55 Oxygen Delivery Method Room Air 02/15/25 12:55 BMI result Body Mass Index 27.6 Const General: no acute distress and alert Nutritional Appearance: not obese Orientation/consciousness: Other orientation findings ( oriented) HEENT Head: Yes atraumatic Eyes General: appearance normal, both eyes and all related structures Sclerae: sclerae normal EOM: EOMs intact bilaterally Neck Neck: Yes supple Lymphatic: no lymphadenopathy noted Resp Effort & Inspection: normal respiratory effort and no use of accessory muscles Auscultation: clear to auscultation bilaterally Cardio Rate: regular rate Rhythm: regular rhythm Heart sounds: no gallops, no murmurs and no rubs Skin General skin exam: other ( warm) Extrem General: No clubbing, No cyanosis and No edema Assessment & Plan Assessment & Plan (1) COPD (chronic obstructive pulmonary disease): Code(s): J44.9 - Chronic obstructive pulmonary disease, unspecified Category: Medical Qualifiers: COPD type: emphysema Emphysema type: unspecified Qualified Code(s): J43.9 - Emphysema, unspecified Plan: Baseline controlled on as needed albuterol MDI and nebs. Continue current regimen. (2) Pulmonary nodules: Comment: 02/2023 Code(s): R91.8 - Other nonspecific abnormal finding of lung field Category: Medical Plan: Likely malignant, patient previously absolutely refusing further workup, now agreeable to repeat CT scan. (3) Supplemental oxygen dependent: Onset Date: ~2020 Code(s): Z99.81 - Dependence on supplemental oxygen Category: Medical Plan: Continue nocturnal supplemental oxygen. Orders: Orders CT chest wo IV con Today R91.8 - Other nonspecific abnormal finding of lung field Coding Level of Care Code Est Pt Level 4 (47296) Complex EM visit Add On G2211 Diagnoses Pulmonary emphysema, unspecified emphysema type J43.9 COPD type: emphysema Emphysema type: unspecified Pulmonary nodules R91.8 Supplemental oxygen dependent Z99.81
== END 2025-02-15 13:37 | disposition home or self-care (01) ==
LOC: HO.HPS 12:49
PROVIDERS: PCP Internal Medicine; Visit Provider Internal Medicine Pulmonary Disease
DX: J43.9 Emphysema, unspecified (principal); R91.8 Other nonspecific abnormal finding of lung field; Z99.81 Dependence on supplemental oxygen
CPT/HCPCS: 99214; G2211

== ENCOUNTER → 2025-02-15 12:48 | Outpatient (BNVA) | payer MEDICARE, SELFPAY | PROVIDERS: PCP Internal Medicine; Visit Provider Internal Medicine Pulmonary Disease | DX: J43.9 Emphysema, unspecified (principal); R91.8 Other nonspecific abnormal finding of lung field; Z99.81 Dependence on supplemental oxygen | CPT/HCPCS: 99212 ==

== ENCOUNTER → 2025-03-01 09:08 | Outpatient (BNV) | payer MEDICARE, SELFPAY | PROVIDERS: PCP Internal Medicine; Referring Provider Internal Medicine; Visit Provider Nurse Practitioner Family | DX: D64.9 Anemia, unspecified (principal) | CPT/HCPCS: 99204 ==

== ENCOUNTER 2025-03-05 09:52 | Outpatient (REF) | payer MEDICARE, SELFPAY ==
[2025-03-05 12:37] LABS: Appearance Urine Cloudy; Color Urine Yellow; Glucose Urine UA >=1000 mg/dL (Negative); Leukocyte Esterase Urine Moderate (2+) (Negative); Nitrite Urine Negative (Negative); PH 5.5 (5.0-9.0); Specific Gravity - Urine 1.025 (1.005-1.025); UMIC TRIGGER UACC YES; Urine Blood Negative (Negative); Urine Ketones Trace mg/dL (Negative); Urine Protein 30 (1+) mg/dL (Neg-Trace)
[2025-03-05 13:17] LABS: Bacteria Urine 2+ (None Seen); Granular Casts Urine Present; Hyaline Casts Urine >20 /LPF (0-2); RBC Urine 0-2 /HPF (0-2); Renal Epithelial Cells Urine Present; Transitional Epi Cells Urine Present; UACC Culture Trigger YES; WBC Urine >50 /HPF (0-5)
== END 2025-03-05 09:53 | disposition home or self-care (01) ==
LOC: HO.HMGCLDS 09:52
PROVIDERS: PCP Internal Medicine; Visit Provider Nurse Practitioner Family
DX: D72.829 Elevated white blood cell count, unspecified (principal)
CPT/HCPCS: 81001; 87086

== ENCOUNTER 2025-03-16 09:30 | Outpatient (RCR) | payer MEDICARE, SELFPAY ==
[2025-03-11 09:40] VITALS: BP 121/52; PULSE 100; RESP 16; TEMP 36.7; O2SAT 96
[2025-03-11] MEDS: Iron Sucrose Complex 200 MG in 0.9 % Sodium Chloride 100 ML 440 MG IV (09:47)
[2025-03-16 09:07] VITALS: BP 147/69; PULSE 93; RESP 16; TEMP 36.2; O2SAT 94
[2025-03-16] MEDS: Iron Sucrose Complex 200 MG in 0.9 % Sodium Chloride 100 ML 440 MG IV (09:22)
== END 2025-03-16 09:47 | disposition home or self-care (01) ==
LOC: HO.INF 09:30
PROVIDERS: Visit Provider Nurse Practitioner Family
DX: D64.9 Anemia, unspecified (principal)
CPT/HCPCS: 96365; 96374; J1756

== ENCOUNTER 2025-04-20 12:32 | Outpatient (REF) | payer MEDICARE, SELFPAY ==
--- NOTE | ~2025-04-20 | CT_ITS ---
EXAMINATION: CT CHEST WITHOUT IV CONTRAST INDICATION: R91.8 - Other nonspecific abnormal finding of lung field COMPARISON: Comparison is made with the prior examination dated 01/30/2024. TECHNIQUE: Helical CT scan of the chest was performed without intravenous contrast. Coronal and sagittal reformatted images were generated and reviewed. This CT exam was performed with one or more of the following dose reduction techniques: automated exposure control, adjustment of the mA and/or kV according to patient size, use of iterative reconstruction technique. DLP: 122 mGy-cm CHEST: THYROID: The thyroid is unremarkable. LUNGS: There is moderate emphysema. Previously, a soft tissue mass was identified adjacent to the anterior aspect of the right minor fissure. This mass is much larger on the current study, but is partially obscured by atelectasis of the anterior segment of the right upper lobe. A combination of atelectasis and mass measures 8.0 x 6.5 x 8.3 cm. There is diffuse thickening of interlobular septae in the right upper lobe, suggestive of lymphangitic spread of carcinoma. In the superior segment of the right lower lobe previously seen 0.5 x 0.9 mm mass now measures 4.5 x 3.6 cm and demonstrates central cavitation with an air/fluid level. A mass in the posterior aspect of the left upper lobe measures 1.4 x 1.0 cm, similar to the prior study. A mass in the superior segment of the left lower lobe measures 2.1 x 1.6 cm (previously 1.5 x 1.7 cm). MEDIASTINUM: There are enlarged paratracheal lymph nodes measuring up to 1.3 cm which are new from the prior study. XIAO: Evaluation of the hilar regions is limited by lack of intravenous contrast material. CARDIOVASCULATURE: The heart is normal in size. There is no pericardial effusion. The thoracic aorta is normal in caliber. DEGREE OF CORONARY CALCIFICATION: mild PLEURA: There is no pleural effusion. No pneumothorax. MAIN AIRWAYS: The mainstem bronchi and proximal branches are patent. AXILLA: There is no axillary lymphadenopathy. BONES AND SOFT TISSUES: Unremarkable UPPER ABDOMEN: There is an ill-defined hypodensity in the right lobe of the liver which could represent a metastatic deposit. Evaluation is limited by lack of intravenous contrast. The visualized portions of the adrenals and spleen unremarkable unenhanced appearance. CT/CT chest wo IV con IMPRESSION: 1. There is been a marked progression of findings since the prior study with enlargement of multiple masses. The previously seen right upper lobe mass causes partial right upper lobe atelectasis. 2. Enlargement of a mass in the superior segment of the right lower lobe measuring 4.5 x 3.6 cm which demonstrates cavitation. 3. Enlargement of a mass in the superior segment of the left lower lobe. 4. Thickening of interlobular septae in the right upper lobe, highly suspicious for lymphangitic spread of carcinoma. 5. Right paratracheal lymphadenopathy. 6. Possible liver mass. This could be further evaluated with MRI if indicated. 7. Findings were communicated to Dr. Victor by secure text message on 04/20/2025 at 1:23 PM and acknowledged at 1:24 PM. Electronically signed by: Miguel Bates MD 04/20/2025 01:28 PM EDT
== END 2025-04-20 12:33 | disposition home or self-care (01) ==
LOC: HO.CT 12:32
PROVIDERS: PCP Internal Medicine; Visit Provider Internal Medicine Pulmonary Disease
DX: R91.8 Other nonspecific abnormal finding of lung field (principal)
CPT/HCPCS: 71250

== ENCOUNTER → 2025-04-20 12:34 | Outpatient (BNV) | payer MEDICARE, SELFPAY | PROVIDERS: PCP Internal Medicine; Visit Provider Radiology Diagnostic Radiology | DX: D38.1 Neoplasm of uncertain behavior of trachea, bronchus and lung (principal) | CPT/HCPCS: 71250 ==

== ENCOUNTER 2025-05-13 14:00 | Outpatient (AMB) | payer MEDICARE, SELFPAY ==
[2025-05-13 14:12] VITALS: BP 132/58; PULSE 110; O2SAT 94; BMI 25.2
--- NOTE | 2025-05-13 14:12 | A.OFFVIS_ITS ---
Vital Signs 05/13/25 14:12 Height 5 ft 4 in Weight 147 lb BMI 25.2 BP 132/58 L Blood Pressure Location Rt brachial Position Sitting Pulse 110 H Pulse Source Pulse Oximeter Pulse Oximetry (%) 94 Oxygen Delivery Method Room Air Intake Visit Reasons: COPD Allergies codeine (CODEINE) Allergy (Intermediate, Verified 05/13/25 14:17) TONGUE SWELLING amlodipine Adverse Reaction (Intermediate, Verified 05/13/25 14:17) leg swell metformin Allergy (Intermediate, Uncoded 04/11/25 10:19) abdminal pain HPI HPI COPD: Details: 79-year-old lady, former 30+ pack-year smoker, quit 20 years prior with underlying history of COVID-19 and September of 2020, discharged on supplemental oxygen, COVID-19 related pulmonary emboli, followed for pulmonary nodules, COPD, and COVID-19 provoked pulmonary emboli.? Her PET-CT showed two PET positive left-sided nodules.? Patient has had 1 out of 2 biopsied with results showing no malignancy. Patient did not want to proceed with a biopsy of the 2nd nodule.? Patient has been explained that delay in diagnosis can lead to development of metastatic lung cancer with early .?She continues on albuterol MDI and rarely requires using it. She denies recent bronchitic exacerbation. Patient had follow-up CT scan that showed worsening bilateral pulmonary masses. She also has unintended weight loss. [facility] Medical History (Updated 05/13/25 @ 15:09 by Andrea Victor MD) Obesity (BMI 30-39.9) History of COVID-19 (~09/2020) History of blood transfusion (~10/2020) Osteopenia Pulmonary nodule Emphysema lung Hypertension Anemia Pulmonary nodule Pulmonary embolism (~10/2020) Pneumonia due to COVID-19 virus (~09/2020) Peripheral vascular disease Cataract Hypercholesterolemia Surgical History History of lung biopsy History of hand surgery (~2019) History of esophagogastroduodenoscopy (EGD) (~2020) History of colonoscopy (~2020) History of cataract surgery (~2019) Family History Father Prostate cancer Diabetes Mother Pneumonia Social History Household Members: Children Housing: House Do you presently have visiting nurse or other home services: No Alcohol intake: current Alcohol intake frequency: does not drink Alcohol type: wine Patient Tobacco Use Status: Former Tobacco user Tobacco use type: Cigarette Cigarette Packs Per Day: 1 e-Cigarette/Vaping Use: Never Used Second Hand Smoke Exposure: No service: No Current occupational status: retired Cognitive needs: No Hearing needs: No Vision needs: Yes Review of Systems Const Denies daytime sleepiness, Denies excessive sweating, Denies fatigue, Denies fever(s), Reports lethargy, Reports malaise, Denies night sweats, Denies snoring and Reports weight loss Eyes Denies blurry vision and Denies itchy eyes ENT Denies nasal congestion, Denies post nasal drip, Denies sinus pain, Denies sinus pressure and Denies other ( Thrush) Card Denies chest pain, Denies pedal edema, Denies dyspnea, Denies orthopnea and Denies paroxysmal nocturnal dyspnea Resp Denies cough, Denies hemoptysis, Denies excessive phlegm production, Denies dyspnea, Denies snoring and Denies wheezing GI Denies abdominal pain and Denies heartburn Musc Denies myalgias, Denies arthralgias and Denies joint swelling Skin/Breast Denies rash Neuro Denies memory loss and Denies seizure-like activity Psych Denies abnormal sleep pattern, Denies anxiety and Denies memory loss Endo Denies excessive sweating, Denies fatigue and Denies heat intolerance Jacob/Lymph Denies easy bruising Aller/Immun Denies itchy eyes, Denies seasonal rhinorrhea and Denies wheezing Physical Exam Vital Signs: Last Vital Signs Pulse 110 H 05/13/25 14:12 BP 132/58 L 05/13/25 14:12 Pulse Ox 94 05/13/25 14:12 Oxygen Delivery Method Room Air 05/13/25 14:12 BMI result Body Mass Index 25.2 Const General: no acute distress and alert Nutritional Appearance: not obese Orientation/consciousness: Other orientation findings ( oriented) HEENT Head: Yes atraumatic Eyes General: appearance normal, both eyes and all related structures Sclerae: sclerae normal EOM: EOMs intact bilaterally Neck Neck: Yes supple Lymphatic: no lymphadenopathy noted Resp Effort & Inspection: normal respiratory effort and no use of accessory muscles Auscultation: clear to auscultation bilaterally Cardio Rate: regular rate Rhythm: regular rhythm Heart sounds: no gallops, no murmurs and no rubs Skin General skin exam: other ( warm) Extrem General: No clubbing, No cyanosis and No edema Assessment & Plan Assessment & Plan (1) COPD (chronic obstructive pulmonary disease): Code(s): J44.9 - Chronic obstructive pulmonary disease, unspecified Category: Medical Qualifiers: COPD type: emphysema Emphysema type: unspecified Qualified Code(s): J43.9 - Emphysema, unspecified Plan: Reasonable control on albuterol MDI/nebs. Continue current regimen. (2) Lung cancer: Code(s): C34.90 - Malignant neoplasm of unspecified part of unspecified bronchus or lung Category: Medical Qualifiers: Laterality: unspecified laterality Lung location: unspecified part of lung Qualified Code(s): C34.90 - Malignant neoplasm of unspecified part of unspecified bronchus or lung Plan: Bilateral worsening lung cancer. Now patient is amenable to biopsy, but wants to discuss possible treatment options with oncologist on 05/17/2025 before proceeding with biopsy. Coding Level of Care Code Est Pt Level 4 (08123) Diagnoses Pulmonary emphysema, unspecified emphysema type J43.9 COPD type: emphysema Emphysema type: unspecified Malignant neoplasm of lung, unspecified laterality, unspecified part of lung C34.90 Laterality: unspecified laterality Lung location: unspecified part of lung
== END 2025-05-13 14:34 | disposition home or self-care (01) ==
LOC: HO.HPS 14:01
PROVIDERS: PCP Internal Medicine; Visit Provider Internal Medicine Pulmonary Disease
DX: J43.9 Emphysema, unspecified (principal); C34.90 Malignant neoplasm of unspecified part of unspecified bronchus or lung
CPT/HCPCS: 99214

== ENCOUNTER → 2025-05-13 14:00 | Outpatient (BNVA) | payer MEDICARE, SELFPAY | PROVIDERS: PCP Internal Medicine; Visit Provider Internal Medicine Pulmonary Disease | DX: J43.9 Emphysema, unspecified (principal); C34.90 Malignant neoplasm of unspecified part of unspecified bronchus or lung | CPT/HCPCS: 99212 ==

== ENCOUNTER 2025-05-20 12:37 | Outpatient (REF) | payer MEDICARE, SELFPAY ==
--- NOTE | ~2025-05-20 | US_ITS ---
CLINICAL HISTORY: Liver mass seen on CAT scan of the chest --- Additional Notes or Special Instructions: B L Lung masses US abdomen complete with color Doppler Comparison: Previous relevant studies were not available for comparison at the time of this interpretation Findings: The visualized pancreas, aorta, and inferior vena cava are unremarkable. Liver normal size and mildly echogenic throughout. Right lobe 14.7 cm length. Indeterminate hypoechoic nodule right lobe measuring 11 x 8 x 11 mm. Common duct 2.0 mm diameter. Partially contracted gallbladder.Gallstones versus shadowing gallbladder sludge.Equivocal gallbladder wall thickening. No pericholecystic fluid. No sonographic Longoria sign. Main portal vein antegrade. Right kidney normal size, 10.0 cm in length. Normal cortical width and echotexture. No solid or cystic renal masses. Benign renal cortical cyst upper pole measuring 2.1 x 2.0 x 2.0 cm and lower pole measuring 0.8 x 0.8 x 0.9 cm. Left kidney normal, 9.8 cm in length. Normal cortical width and echotexture. No solid or cystic renal masses. No nephrolithiasis or hydronephrosis. Spleen measures 8.7 cm. No splenic masses. No ascites. No lymphadenopathy. Impression: 1. Normal-sized liver with increased echotexture reflecting hepatic steatosis or diffuse hepatocellular disease. Indeterminate liver lesion right lobe. Multiphase contrast-enhanced MRI of the abdomen is the imaging modality of choice. 2. Contracted gallbladder. Equivocal gallbladder wall thickening. Gallstones versus shadowing gallbladder sludge. 3. Renal cortical cysts on the right. This document has been electronically signed by: Jason Carlin MD on 05/21/2025 09:29:53
== END 2025-05-20 12:38 | disposition home or self-care (01) ==
LOC: HO.US 12:37
PROVIDERS: PCP Internal Medicine; Visit Provider Internal Medicine Medical Oncology
DX: R16.0 Hepatomegaly, not elsewhere classified (principal)
CPT/HCPCS: 76700

== ENCOUNTER → 2025-05-20 12:39 | Outpatient (BNV) | payer MEDICARE, SELFPAY | PROVIDERS: PCP Internal Medicine; Visit Provider Radiology Diagnostic Radiology | DX: R93.2 Abnormal findings on diagnostic imaging of liver and biliary tract (principal) | CPT/HCPCS: 76700 ==

== ENCOUNTER 2025-05-30 09:45 | Outpatient (RCR) | payer MEDICARE, SELFPAY ==
[2025-05-09 10:58] VITALS: BP 119/51; PULSE 100; RESP 16; TEMP 36.7; O2SAT 93
[2025-05-16 09:42] VITALS: BP 141/60; PULSE 104; RESP 16; TEMP 36.3; O2SAT 93
[2025-05-23 10:07] VITALS: BP 154/74; PULSE 107; RESP 20; TEMP 37.2; O2SAT 92
[2025-05-23] MEDS: 0.9 % Sodium Chloride Flush 10 ML SYRINGE 5 ML IVFLUSH (10:35)
[2025-05-30 09:49] VITALS: BP 136/54; PULSE 90; RESP 16; TEMP 36.7; O2SAT 88
[2025-05-30 10:36] LABS: Hematocrit 35.4 % (37.0-47.0); Hemoglobin 11.0 g/dl (12.0-16.0); Mean Corpuscular HGB Conc 31.1 g/dl (31.0-35.0); Mean Corpuscular Hemoglobin 26.6 pg (27.0-33.0); Mean Corpuscular Volume 85.5 fL (80.0-98.0); NRBC Abs Auto 0.000 X10*3/uL (0.0-0.012); NRBC Pct Auto 0.0 /100WBC (0.0-0.2); Platelet Count 461 X10*3/uL (160-400); Red Blood Count 4.14 X10*6/uL (4.20-5.50); White Blood Count 11.7 X10*3/uL (4.8-10.8)
[2025-05-30 11:12] LABS: Ferritin 1011 ng/mL (10-250)
== END 2025-05-30 10:40 | disposition home or self-care (01) ==
LOC: HO.INF 09:45
PROVIDERS: Visit Provider Internal Medicine Medical Oncology
DX: D64.9 Anemia, unspecified (principal)
CPT/HCPCS: 36415; 82728; 85027; 96365; J1756

== ENCOUNTER 2025-06-07 13:16 | Outpatient (AMB) | payer MEDICARE, SELFPAY ==
[2025-06-07 13:36] VITALS: BP 136/67; PULSE 98; O2SAT 84; BMI 24.7
--- NOTE | 2025-06-07 13:36 | A.OFFVIS_ITS ---
Vital Signs 06/07/25 13:36 Height 5 ft 4 in Weight 144 lb BMI 24.7 BP 136/67 Blood Pressure Location Rt brachial Position Sitting Pulse 98 Pulse Source Pulse Oximeter Pulse Oximetry (%) 84 L Oxygen Delivery Method Nasal Cannula Oxygen Flow Rate 2 Intake Visit Reasons: copd Allergies codeine (CODEINE) Allergy (Intermediate, Verified 06/07/25 13:58) TONGUE SWELLING amlodipine Adverse Reaction (Intermediate, Verified 06/07/25 13:58) leg swell metformin Allergy (Intermediate, Uncoded 05/17/25 10:45) abdminal pain HPI HPI copd: Details: 79-year-old lady, former 30+ pack-year smoker, quit 20 years prior with underlying history of COVID-19 and September of 2020, discharged on supplemental oxygen, COVID-19 related pulmonary emboli, followed for pulmonary nodules, COPD, and COVID-19 provoked pulmonary emboli.? Her PET-CT showed two PET positive left-sided nodules.? Patient has had 1 out of 2 biopsied with results showing no malignancy. Patient did not want to proceed with a biopsy of the 2nd nodule.? Patient has been explained that delay in diagnosis can lead to development of metastatic lung cancer with early .? After the last office visit patient has been requiring supplemental oxygen at 2 L continuous flow. She is also agreeable to biopsy. Her liver ultrasound was inconclusive and she hardly MRI ordered by Oncology, however she had not had that test yet. [facility] Medical History Obesity (BMI 30-39.9) History of COVID-19 (~09/2020) History of blood transfusion (~10/2020) Osteopenia Pulmonary nodule Emphysema lung Hypertension Anemia Pulmonary nodule Pulmonary embolism (~10/2020) Pneumonia due to COVID-19 virus (~09/2020) Peripheral vascular disease Cataract Hypercholesterolemia Surgical History History of lung biopsy History of hand surgery (~2019) History of esophagogastroduodenoscopy (EGD) (~2020) History of colonoscopy (~2020) History of cataract surgery (~2019) Family History Father Prostate cancer Diabetes Mother Pneumonia Social History Household Members: Children Housing: House Do you presently have visiting nurse or other home services: No Alcohol intake: current Alcohol intake frequency: does not drink Alcohol type: wine Patient Tobacco Use Status: Former Tobacco user Tobacco use type: Cigarette Cigarette Packs Per Day: 1 e-Cigarette/Vaping Use: Never Used Second Hand Smoke Exposure: No service: No Current occupational status: retired Cognitive needs: No Hearing needs: No Vision needs: Yes Review of Systems Const Reports fatigue, Reports malaise and Reports weight loss Card Reports pedal edema and Reports dyspnea on exertion Resp Denies cough, Denies excessive phlegm production, Reports dyspnea on exertion and Denies wheezing Endo Reports fatigue Aller/Immun Denies wheezing Physical Exam Vital Signs: Last Vital Signs Pulse 98 06/07/25 13:36 BP 136/67 06/07/25 13:36 Pulse Ox 84 L 06/07/25 13:36 Oxygen Delivery Method Nasal Cannula 06/07/25 13:36 Oxygen Flow Rate 2 06/07/25 13:36 BMI result Body Mass Index 24.7 Const General: alert Orientation/consciousness: Other orientation findings ( oriented) HEENT Head: Yes atraumatic Eyes General: appearance normal, both eyes and all related structures Sclerae: sclerae normal EOM: EOMs intact bilaterally Neck Neck: Yes supple Lymphatic: no lymphadenopathy noted Resp Effort & Inspection: normal respiratory effort and no use of accessory muscles Cardio Rate: regular rate Rhythm: regular rhythm Heart sounds: no gallops, no murmurs and no rubs Skin General skin exam: other ( warm) Extrem General: No clubbing, No cyanosis and Yes edema (2+ bilateral) Assessment & Plan Assessment & Plan (1) Lung cancer: Code(s): C34.90 - Malignant neoplasm of unspecified part of unspecified bronchus or lung Category: Medical Plan: Liver imaging reviewed and does not appear to be an optimal biopsy targeted cystitis. Will order right lung biopsy. MOLST form filled out. (2) COPD (chronic obstructive pulmonary disease): Code(s): J44.9 - Chronic obstructive pulmonary disease, unspecified Category: Medical Qualifiers: COPD type: emphysema Emphysema type: unspecified Qualified Code(s): J43.9 - Emphysema, unspecified Plan: Reasonable control on albuterol MDI/nebs. Continue current regimen. (3) Supplemental oxygen dependent: Onset Date: ~2020 Code(s): Z99.81 - Dependence on supplemental oxygen Category: Medical Plan: Continue supplemental oxygen to maintain O2 saturation above 88%. Orders: Orders CT biopsy lung RT Today C34.90 - Malignant neoplasm of unspecified part of unspecified bronchus or lung Coding Level of Care Code Est Pt Level 4 (11734) Complex EM visit Add On G2211 Diagnoses Lung cancer C34.90 Pulmonary emphysema, unspecified emphysema type J43.9 COPD type: emphysema Emphysema type: unspecified Supplemental oxygen dependent Z99.81
== END 2025-06-07 14:30 | disposition home or self-care (01) ==
LOC: HO.HPS 13:17
PROVIDERS: PCP Internal Medicine; Visit Provider Internal Medicine Pulmonary Disease
DX: C34.90 Malignant neoplasm of unspecified part of unspecified bronchus or lung (principal); J43.9 Emphysema, unspecified; Z99.81 Dependence on supplemental oxygen
CPT/HCPCS: 99214; G2211

== ENCOUNTER → 2025-06-07 13:16 | Outpatient (BNVA) | payer MEDICARE, SELFPAY | PROVIDERS: PCP Internal Medicine; Visit Provider Internal Medicine Pulmonary Disease | DX: J43.9 Emphysema, unspecified (principal); Z99.81 Dependence on supplemental oxygen; Z87.891 Personal history of nicotine dependence; R91.8 Other nonspecific abnormal finding of lung field | CPT/HCPCS: 99212 ==

== ENCOUNTER → 2025-06-24 15:03 | Outpatient (BNV) | payer MEDICARE, SELFPAY | PROVIDERS: PCP Internal Medicine; Visit Provider Internal Medicine | DX: R94.31 Abnormal electrocardiogram [ECG] [EKG] (principal); Z01.810 Encounter for preprocedural cardiovascular examination | CPT/HCPCS: 93010 ==

== ENCOUNTER 2025-06-29 12:21 | Day surgery (SDC) | payer MEDICARE, SELFPAY ==
--- NOTE | 2025-06-24 | ECG_ITS ---
Test Reason : PREOP Blood Pressure : */* mmHG Vent. Rate : 80 BPM Atrial Rate : 80 BPM P-R Int : 160 ms QRS Dur : 82 ms QT Int : 376 ms P-R-T Axes : 66 64 20 degrees QTcB Int : 433 ms Normal sinus rhythm Cannot rule out Anterior infarct , age undetermined Abnormal ECG No previous ECGs available Referred By: Yazmin Arshad Electronically Signed By: RUBEN GARLAND
[2025-06-24 13:40] VITALS: BP 116/58; PULSE 79; RESP 18; O2SAT 95; BMI 24.7
--- NOTE | 2025-06-24 13:59 | HO.ANESPROP2 ---
Documented by User: Yazmin Arshad NP 06/27/25 08:21 HPI - Anesthesia Eval Consult details Narrative: 79yo F for Fine Needle Biopsy CT Guided - lung No recent illness No CP. OCHOA with chronic decline over last 2 months Severe COPD requiring supplemental O2. At PAT: 95% on RA measured on earlobe. Unable to get accurate measurement on fingers d/t gel nail german, poor circulation. Has not had travel O2 d/t problems with medical supply company At home: Pt uses 2L continuous O2 except for short breaks for bathroom, etc. 1-2+ pedal edema started ~ 4 weeks ago. Has been on lasix since 2020 (peripheral edema when started on lasix). Attributes edema to decrease in activity/PVD. Lungs dim but no crackles. No murmur. (Pt unable to obtain labs today d/t other appointment and transport limitations. Will get BNP DOS with other ordered labs) Discussed increased pulmo risk with patient and family member. Discussed possibility of prolonged intubation. Pt DNR/DNI Verbalized understanding. Anesthesia Pre-Procedure Meds Is the patient on any of the following meds?: SGLT2 Inhib PMFSH Active Problems Active Problems: All Active Problems Lung cancer (Acute) Anemia (Acute) Overweight (BMI 25.0-29.9) (Acute) Acute left flank pain (Acute) Retinal hemorrhage (Acute) Lung cancer (Acute) Shingles (Acute) Diabetic nephropathy (Acute) COPD (chronic obstructive pulmonary disease) (Acute) TSH elevation (Acute) URI (upper respiratory infection) (Acute) SOB (shortness of breath) (Acute) Low back pain (Acute) Acute bronchitis (Acute) Pulmonary nodules (Acute) Hypercholesterolemia (Acute) Type 2 diabetes mellitus with hyperglycemia (Acute) Upper respiratory tract infection (Acute) Varicose vein of leg (Acute) Supplemental oxygen dependent (Acute ~2020) Dyspnea on exertion (Acute) Leg swelling (Acute) Severe anemia (Acute ~2020) Hypoxemia (Acute) Anemia (Acute) Hypertension (Acute) Pulmonary embolism (Acute ~10/2020) Past Medical History Medical History (Updated 06/24/25 @ 13:36 by Qi Ordaz RN) Supplemental oxygen dependent COPD (chronic obstructive pulmonary disease) Diabetes Obesity (BMI 30-39.9) History of COVID-19 (~09/2020) History of blood transfusion (~10/2020) Osteopenia Emphysema lung Hypertension Anemia Pulmonary nodule Pulmonary embolism (~10/2020) Pneumonia due to COVID-19 virus (~09/2020) Peripheral vascular disease Hypercholesterolemia Family History Family History Father Prostate cancer Diabetes Mother Pneumonia Surgical History Surgical History History of lung biopsy History of hand surgery (~2019) History of esophagogastroduodenoscopy (EGD) (~2020) History of colonoscopy (~2020) History of cataract surgery (~2019) Social History Social History Household Members: Children Housing: House Are you a primary wound care specialist to a significant other at home: No Do you presently have visiting nurse or other home services: No Alcohol intake: current Alcohol intake frequency: does not drink Alcohol type: wine Comment: has chair lift for stairs at home, walks short distances Patient Tobacco Use Status: Former Tobacco user Tobacco use type: Cigarette Cigarette Packs Per Day: 1 Years Smoked: 35 e-Cigarette/Vaping Use: Never Used Second Hand Smoke Exposure: No Advance Directives Date on File: 06/24/25 service: No Current occupational status: retired Cognitive needs: No Hearing needs: No Vision needs: Yes Meds Allergies Allergy/AdvReac Type Severity Reaction Status Date / Time codeine (CODEINE) Allergy Intermediate TONGUE Verified 06/24/25 14:48 SWELLING metformin Allergy Intermediate Abdominal Verified 06/24/25 14:48 Pain amlodipine AdvReac Intermediate leg swell Verified 06/24/25 14:48 Home Medications ?Medication ?Instructions ?Recorded ?Confirmed ?Last Taken ?Type cholecalciferol (vitamin D3) 50 50 mcg PO DAILY 08/10/20 06/24/25 11/03/20 History mcg (2,000 unit) capsule ascorbic acid (vitamin C) 1,000 mg 1,000 mg PO Q12H 11/28/20 06/24/25 Unknown History tablet,extended release cyanocobalamin (vitamin B-12) 1,000 mcg PO DAILY 11/28/20 06/24/25 Unknown History 1,000 mcg capsule furosemide 20 mg tablet 20 mg PO QAM 06/24/25 06/24/25 Unknown History Exam Height,Weight and Vital Signs: Height 5 ft 4 in Weight 65.317 kg Last Vital Signs Pulse 79 06/24/25 13:40 Resp 18 06/24/25 13:40 BP 116/58 L 06/24/25 13:40 Pulse Ox 95 06/24/25 13:40 O2 Del Method Room Air 06/24/25 13:40 Pertinent Lab Results Pertinent Lab Results: Laboratory Tests 05/17/25 05/30/25 10:54 10:10 WBC 11.7 H Hgb 11.0 L Hct 35.4 L Plt Count 461 H Sodium 139 Potassium 3.9 Chloride 101 Carbon Dioxide 27 BUN 10 Creatinine 0.66 Narrative Narrative: EKG 06/2025 Vent. Rate : 80 BPM Atrial Rate : 80 BPM P-R Int : 160 ms QRS Dur : 82 ms QT Int : 376 ms P-R-T Axes : 66 64 20 degrees QTcB Int : 433 ms Normal sinus rhythm Cannot rule out Anterior infarct , age undetermined Abnormal ECG No previous ECGs available Airway Mallampati Class: I TM Dist: >3cm Neck ROM: Full Denture: Upper and Lower Heart: RRR Lungs: Dim throughout, greater in lower lobes, extended expiration Assessment and Plan Assessment Anesthesia Assessment: Anesthesia Plan Discussed and PAT Visit Documented by User: Roxanne Villalobos MD 06/29/25 13:57 [facility] Past Medical History Medical History (Updated 06/24/25 @ 13:36 by Qi Ordaz, SARITA) Supplemental oxygen dependent COPD (chronic obstructive pulmonary disease) Diabetes Obesity (BMI 30-39.9) History of COVID-19 (~09/2020) History of blood transfusion (~10/2020) Osteopenia Emphysema lung Hypertension Anemia Pulmonary nodule Pulmonary embolism (~10/2020) Pneumonia due to COVID-19 virus (~09/2020) Peripheral vascular disease Hypercholesterolemia Family History Family History Father Prostate cancer Diabetes Mother Pneumonia Family history of problems with anesthesia: No Surgical History Surgical History History of lung biopsy History of hand surgery (~2019) History of esophagogastroduodenoscopy (EGD) (~2020) History of colonoscopy (~2020) History of cataract surgery (~2019) History of Problems with Anesthesia: No Social History Social History Household Members: Children Housing: House Are you a primary wound care specialist to a significant other at home: No Do you presently have visiting nurse or other home services: No Alcohol intake: current Alcohol intake frequency: does not drink Alcohol type: wine Comment: has chair lift for stairs at home, walks short distances Patient Tobacco Use Status: Former Tobacco user Tobacco use type: Cigarette Cigarette Packs Per Day: 1 Years Smoked: 35 e-Cigarette/Vaping Use: Never Used Second Hand Smoke Exposure: No Advance Directives Date on File: 06/24/25 service: No Current occupational status: retired Cognitive needs: No Hearing needs: No Vision needs: Yes Meds Allergies Allergy/AdvReac Type Severity Reaction Status Date / Time codeine (CODEINE) Allergy Intermediate TONGUE Verified 06/24/25 14:48 SWELLING metformin Allergy Intermediate Abdominal Verified 06/24/25 14:48 Pain amlodipine AdvReac Intermediate leg swell Verified 06/24/25 14:48 Home Medications ?Medication ?Instructions ?Recorded ?Confirmed ?Last Taken ?Type cholecalciferol (vitamin D3) 50 50 mcg PO DAILY 08/10/20 06/24/25 11/03/20 History mcg (2,000 unit) capsule ascorbic acid (vitamin C) 1,000 mg 1,000 mg PO Q12H 11/28/20 06/24/25 Unknown History tablet,extended release cyanocobalamin (vitamin B-12) 1,000 mcg PO DAILY 11/28/20 06/24/25 Unknown History 1,000 mcg capsule furosemide 20 mg tablet 20 mg PO QAM 06/24/25 06/24/25 Unknown History Assessment and Plan Final Anesthetic Review Family History of Problems with Anesthesia: No History of Problems with Anesthesia: No NPO: Yes ASA Class: III Final Preanesthetic Review: No Changes in Pt Med Stat, Meds/Allgs Chart Reviewed and Consent Obtained/Reviewed Patient Risk: Intermediate Procedure Risk: Intermediate Anesthetic Plan Anesthetic Plan: MAC: Disposition: Standard PACU
[2025-06-29] VITALS (13 sets, daily range): BP systolic 124–150; BP diastolic 43–64; PULSE 76–95; RESP 11–24; TEMP 35.9–36.4; O2SAT 82–97; BMI 24.5
--- NOTE | ~2025-06-29 | XR_ITS ---
EXAMINATION: XR CHEST CLINICAL INFORMATION: s/p r lung biopsy COMPARISON: CT box stacker from approximately 1 hour ago TECHNIQUE: Frontal view of the chest was obtained. FINDINGS: CT scan was performed in a prone position and x-ray was performed upright. There is decreased aeration of the right lower lung, probably due to differences in positioning. There is a large right pleural effusion with aeration only of the upper third right lung. No pneumothorax is identified. The left lung is clear. Chronic silhouette is unremarkable, but obscured in the right chest by pleural effusion. XR/XR chest 1V IMPRESSION: Large right pleural effusion with aeration of the upper third right lung. No pneumothorax is detected. Electronically signed by: Avelino Lima MD 06/29/2025 03:45 PM EDT
[2025-06-29 12:55] LABS: MANUAL DIFF FLAG NO
--- NOTE | 2025-06-29 12:57 | PC.NURSE ---
patient states shes fighting with the oxygen company to have o2 portable tanks to go home with. uses oxygen tank at home with 2l n/c and while sleeping.
[2025-06-29 12:58] LABS: Hematocrit 35.3 % (37.0-47.0); Hemoglobin 11.0 g/dl (12.0-16.0); Imm Gran Abs Auto 0.04 X10*3/uL (0.00-0.03); Imm Gran Pct Auto 0.3 % (0.0-0.4); Lymphocytes Absolute Auto 2.0 X10*3/uL (1.2-4.9); Mean Corpuscular HGB Conc 31.2 g/dl (31.0-35.0); Mean Corpuscular Hemoglobin 26.6 pg (27.0-33.0); Mean Corpuscular Volume 85.5 fL (80.0-98.0); NRBC Abs Auto 0.000 X10*3/uL (0.0-0.012); NRBC Pct Auto 0.0 /100WBC (0.0-0.2); Platelet Count 406 X10*3/uL (160-400); Red Blood Count 4.13 X10*6/uL (4.20-5.50); White Blood Count 13.2 X10*3/uL (4.8-10.8)
--- NOTE | 2025-06-29 13:04 | PC.NURSE ---
patient and family member states her baseline oxygen is in the 80s without oxygen-baseline but has decreased in the last 6 weeks. applied 2l n/c increased to 94 percent. md ramos by bedside speaking to patient.
[2025-06-29 13:05] LABS: INTERNATIONAL NORM RATIO 1.1 (0.9-1.1); Prothrombin Time 12.4 SEC (10.9-12.4)
[2025-06-29 13:15] LABS: NT Pro B Type Natriuretic Pept 1000.4 pg/mL (<300)
[2025-06-29 13:38] LABS: Glucose, Whole Blood 82 mg/dL (60-115)
[2025-06-29] MEDS: Lactated Ringers 1,000 ML 50 ML IVCONT (14:01)
[2025-06-29 16:06] LABS: Glucose, Whole Blood 65 mg/dL (60-115)
[2025-06-29 16:06] LABS: Glucose, Whole Blood 62 mg/dL (60-115)
[2025-06-29 16:07] LABS: Glucose, Whole Blood 119 mg/dL (60-115)
== END 2025-06-29 17:59 | disposition home or self-care (01) ==
PROVIDERS: Nurse Practitioner; Radiology Diagnostic Radiology; PCP Internal Medicine; Visit Provider Internal Medicine Pulmonary Disease
DX: C34.11 Malignant neoplasm of upper lobe, right bronchus or lung (principal); Z86.711 Personal history of pulmonary embolism; U09.9 Post COVID-19 condition, unspecified; J44.9 Chronic obstructive pulmonary disease, unspecified; R91.8 Other nonspecific abnormal finding of lung field; Z99.81 Dependence on supplemental oxygen; Z87.01 Personal history of pneumonia (recurrent); I10 Essential (primary) hypertension; E78.00 Pure hypercholesterolemia, unspecified; I73.9 Peripheral vascular disease, unspecified; D64.9 Anemia, unspecified; Z66 Do not resuscitate; M85.80 Other specified disorders of bone density and structure, unspecified site; Z88.5 Allergy status to narcotic agent; Z88.8 Allergy status to other drugs, medicaments and biological substances; Z87.891 Personal history of nicotine dependence; Z98.890 Other specified postprocedural states
CPT/HCPCS: 32408; 36415; 71045; 82947; 83880; 85025; 85610; 88305; 88341; 88342; 93005; J1596; J2003; J2250; J2704; J3010

== ENCOUNTER → 2025-06-29 15:25 | Outpatient (BNV) | payer MEDICARE, SELFPAY | PROVIDERS: PCP Internal Medicine; Visit Provider Radiology Diagnostic Radiology | DX: J90 Pleural effusion, not elsewhere classified (principal) | CPT/HCPCS: 71045 ==

== ENCOUNTER 2025-07-11 13:14 | Outpatient (AMB) | payer MEDICARE, SELFPAY ==
[2025-07-11 13:22] VITALS: BP 118/58; PULSE 96; O2SAT 93; BMI 25.0
--- NOTE | 2025-07-11 13:22 | A.OFFVIS_ITS ---
Vital Signs 07/11/25 13:22 Height 5 ft 4 in Weight 145 lb 8.081 oz BMI 25.0 BP 118/58 L Blood Pressure Location Lt brachial Position Sitting Pulse 96 Pulse Source Pulse Oximeter Pulse Oximetry (%) 93 Oxygen Delivery Method Nasal Cannula Oxygen Flow Rate 2 Intake Visit Reasons: copd Allergies codeine (CODEINE) Allergy (Intermediate, Verified 07/11/25 13:26) TONGUE SWELLING metformin Allergy (Intermediate, Verified 07/11/25 13:26) Abdominal Pain amlodipine Adverse Reaction (Intermediate, Verified 07/11/25 13:26) leg swell HPI HPI copd: Details: 79-year-old lady, former 30+ pack-year smoker, quit 20 years prior with underlying history of COVID-19 and September of 2020, discharged on supplemental oxygen, COVID-19 related pulmonary emboli, followed for pulmonary nodules, COPD, and COVID-19 provoked pulmonary emboli.? After last office visit the patient had biopsy that showed squamous cancer with a significantly advanced based on imaging. At this time patient wants to be referred to hospice. [facility] Medical History (Updated 07/04/25 @ 18:53 by Marizol Palacios MD) Supplemental oxygen dependent COPD (chronic obstructive pulmonary disease) Diabetes Obesity (BMI 30-39.9) History of COVID-19 (~09/2020) History of blood transfusion (~10/2020) Osteopenia Emphysema lung Hypertension Anemia Pulmonary nodule Pulmonary embolism (~10/2020) Pneumonia due to COVID-19 virus (~09/2020) Peripheral vascular disease Hypercholesterolemia Surgical History History of lung biopsy History of hand surgery (~2019) History of esophagogastroduodenoscopy (EGD) (~2020) History of colonoscopy (~2020) History of cataract surgery (~2019) Family History Father Prostate cancer Diabetes Mother Pneumonia Social History Household Members: Children Housing: House Are you a primary behavioral health care coordinator to a significant other at home: No Do you presently have visiting nurse or other home services: No Alcohol intake: current Alcohol intake frequency: does not drink Alcohol type: wine Comment: has chair lift for stairs at home, walks short distances Patient Tobacco Use Status: Former Tobacco user Tobacco use type: Cigarette Cigarette Packs Per Day: 1 Years Smoked: 35 e-Cigarette/Vaping Use: Never Used Second Hand Smoke Exposure: No Advance Directives Date on File: 06/24/25 service: No Current occupational status: retired Cognitive needs: No Hearing needs: No Vision needs: Yes Review of Systems Const Reports fatigue and Reports malaise Card Reports dyspnea on exertion Resp Reports dyspnea on exertion Endo Reports fatigue Physical Exam Vital Signs: Last Vital Signs Pulse 96 07/11/25 13:22 BP 118/58 L 07/11/25 13:22 Pulse Ox 93 07/11/25 13:22 Oxygen Delivery Method Nasal Cannula 07/11/25 13:22 Oxygen Flow Rate 2 07/11/25 13:22 BMI result Body Mass Index 25.0 Const General: no acute distress, alert, awake and ill appearing Eyes Sclerae: sclerae normal EOM: EOMs intact bilaterally Neck Neck: Yes no lymphadenopathy, Yes trachea midline and Yes supple Resp Effort & Inspection: normal respiratory effort and no respiratory distress Cardio Rate: regular rate Assessment & Plan Assessment & Plan (1) COPD (chronic obstructive pulmonary disease): Code(s): J44.9 - Chronic obstructive pulmonary disease, unspecified Category: Medical Qualifiers: COPD type: emphysema Emphysema type: unspecified Qualified Code(s): J43.9 - Emphysema, unspecified (2) Supplemental oxygen dependent: Onset Date: ~2020 Code(s): Z99.81 - Dependence on supplemental oxygen Category: Medical (3) Lung cancer: Code(s): C34.90 - Malignant neoplasm of unspecified part of unspecified bronchus or lung Category: Medical Plan Results of lung biopsy reviewed with the patient and her family who at this time are interested in proceeding with hospice care. Hospice referral placed. Orders: [facility]errals [facility] Referral C34.90 - Malignant neoplasm of unspecified part of unspecified bronchus or lung Coding Level of Care Code Est Pt Level 4 (41408) Diagnoses Pulmonary emphysema, unspecified emphysema type J43.9 COPD type: emphysema Emphysema type: unspecified Supplemental oxygen dependent Z99.81 Lung cancer C34.90
== END 2025-07-11 13:41 | disposition home or self-care (01) ==
LOC: HO.HPS 13:15
PROVIDERS: PCP Internal Medicine; Visit Provider Internal Medicine Pulmonary Disease
DX: J43.9 Emphysema, unspecified (principal); Z99.81 Dependence on supplemental oxygen; C34.90 Malignant neoplasm of unspecified part of unspecified bronchus or lung
CPT/HCPCS: 99214

== ENCOUNTER → 2025-07-11 13:14 | Outpatient (BNVA) | payer MEDICARE, SELFPAY | PROVIDERS: PCP Internal Medicine; Visit Provider Internal Medicine Pulmonary Disease | DX: J43.9 Emphysema, unspecified (principal); C34.90 Malignant neoplasm of unspecified part of unspecified bronchus or lung; Z99.81 Dependence on supplemental oxygen | CPT/HCPCS: 99212 ==